=== PATIENT | female | born 1995 | race Caucasian/White ===

== ENCOUNTER 2020-11-26 14:30 | Outpatient (REF) | payer OTHER, SELFPAY | END 2020-11-26 14:31 | disposition home or self-care (01) | LOC: HO.LAB 14:30 | PROVIDERS: Visit Provider Internal Medicine | DX: Z20.822 Contact with and (suspected) exposure to COVID-19 (principal) | CPT/HCPCS: 36415; C9803; U0003; U0005 ==

== ENCOUNTER 2021-01-31 16:12 | Emergency (ER) | payer OTHER, SELFPAY ==
[2021-01-31 16:31] VITALS: BP 142/79; PULSE 88; RESP 22; TEMP 36.1; O2SAT 93; BMI 30.9
[2021-01-31 16:38] VITALS: O2SAT 90
[2021-01-31] MEDS: methylPREDNISolone Sod Succ 125 MG/2 ML VIAL IVPUSH (17:00)
[2021-01-31] MEDS: Magnesium Sulfate/H2O 2 GM/50 ML PIGGYBACK IV (17:00)
[2021-01-31] MEDS: Albuterol/Iprat 2.5/0.5MG 3 ML AMPUL.NEB INHALE (17:02)
[2021-01-31] MEDS: Albuterol Sulfate (0.083%) 2.5 MG/3 ML VIAL.NEB INHALE (17:02)
[2021-01-31] MEDS: Albuterol Sulfate (0.083%) 2.5 MG/3 ML VIAL.NEB 5 MG INHALE (17:02)
[2021-01-31 17:03] VITALS: PULSE 88; O2SAT 91
[2021-01-31 17:03] LABS: MANUAL DIFF FLAG NO
[2021-01-31 17:09] LABS: Basophils Percent Auto 0.6 % (0-2); Eosinophils Absolute Auto 0.4 X10*3/uL (0.0-0.4); Eosinophils Percent Auto 5.6 % (0-4); Hematocrit 38.9 % (37-47); Hemoglobin 12.5 g/dl (12.0-16.0); Imm Gran Abs Auto 0.02 X10*3/uL (0.00-0.03); Imm Gran Pct Auto 0.3 % (0.0-0.4); Lymphocytes Absolute Auto 1.9 X10*3/uL (1.2-4.9); Lymphocytes Percent Auto 26.8 % (20-40); Mean Corpuscular HGB Conc 32.1 g/dl (31.0-35.0); Mean Corpuscular Hemoglobin 27.9 pg (27.0-33.0); Mean Corpuscular Volume 86.8 fL (80-98); Mean Platelet Volume 10.1 fL (9.4-12.3); Monocytes Absolute Auto 0.5 X10*3/uL (0.1-1.2); Monocytes Percent Auto 7.1 % (2-11); Neutrophils Absolute Auto 4.3 X10*3/uL (2.0-8.3); Neutrophils Percent Auto 59.6 % (45-73); Platelet Count 314 X10*3/uL (160-400); Red Blood Count 4.48 X10*6/uL (4.20-5.50); Red Cell Distribution Width 13.5 % (11.0-16.0); White Blood Count 7.2 X10*3/uL (4.8-10.8)
--- NOTE | 2021-01-31 17:35 | ED.SOB ---
HPI - SOB/Dyspnea General Chief Complaint: Dyspnea Stated Complaint: Asthma Attack Time Seen by Provider: 01/31/21 16:51 Source: patient Mode of arrival: ambulatory Limitations: no limitations History of Present Illness HPI Narrative: Patient history of asthma came to ER for increased shortness of breath for last few hours wheezing on arrival saturating 93% at room air with history of similar attacks in the past where she gets worse. For now patient is staying in motel for last few days unlikely the chemical use in the hotel causing her more asthma attacks MD elicited complaint: shortness of breath Pertinent past history: asthma Onset (ago): hour(s) Related Data Previous Rx's Medication Instructions Recorded albuterol sulfate [ProAir HFA] 2 puff INHALATION Q4-6H PRN #8.5 g 01/31/21 prednisone 40 mg PO DAILY #10 tab 01/31/21 Allergies Allergy/AdvReac Type Severity Reaction Status Date / Time No Known Allergies Allergy Verified 01/31/21 16:31 [No Known Allergies*] Review of Systems Review of Systems: Constitutional : No Weight loss, No Fever, No Chills ENT/Mouth : No sore throat, No Rhinorrhea Eyes: No Eye Pain, No Swelling Cardiovascular : No Chest Pain, no palpitations Respiratory : No Cough, No Sputum, +shortness of breath Gastrointestinal : no Nausea, No Vomiting, No Diarrhea, No abdominal Pain, no black stools Genitourinary : No Dysuria, No Urinary Frequency Musculoskeletal : No joint pain, No Myalgias, No Joint Swelling Skin : No Skin Lesions, No rash Neuro : No Weakness, No Numbness, No Dizziness, No Headache Psych : No Anxiety/Panic, No Depression Heme/Lymph: No Bruising, No Lymphadenopathy Endocrine : No Polyuria, No Polydipsia All other systems reviewed and are negative [facility] Social History Social History Advance Directives: No Advance Directives Information Provided: No Patient : No Physical Exam Vital Signs: Vital Signs: Last Vital Signs Temp 98.7 F 01/31/21 19:17 Pulse 95 01/31/21 19:17 Resp 18 01/31/21 19:17 BP 131/76 01/31/21 19:17 Pulse Ox 98 01/31/21 19:17 Body Mass Index 30.9 Appearance: Alert. Oriented X3. In mild respiratory distress. Eyes: PERRLA, No Nystagmus ENT: Pharynx normal. Oral Mucosa moist Neck: Normal inspection. Neck supple. CVS: Normal heart rate and rhythm. Pulses normal. Respiratory: Mild respiratory distress. Equal air entry bilateral, bilateral diffuse wheezing and rhonchi no rales Abdomen: Soft and nontender. Bowel sounds are present, no mass palpable, no CVA tenderness Skin: Skin warm and dry. Normal skin color. Normal skin turgor. Extremities: No lower extremity edema. No calf tenderness Neuro: Oriented X 3. No motor deficit. No sensory deficit.No cerebellar signs , cranial nerves II-XII intact MDM - SOB/Dyspnea MDM Narrative Medical decision making narrative: Patient with asthma came with acute exacerbation with wheezing saturating 93% on room air received 1 continues treatment and now feeling much much better saturating 100% room air will discharge patient home on albuterol inhaler and prednisone tablets Lab Data Attestation: I reviewed the patient's lab results. Result diagrams: 01/31/21 16:59 01/31/21 16:59 Labs: Lab Results 01/31/21 01/31/21 Range/Units 16:59 16:59 WBC 7.2 (4.8-10.8) X10*3/uL RBC 4.48 (4.20-5.50) X10*6/uL Hgb 12.5 (12.0-16.0) g/dl Hct 38.9 (37-47) % MCV 86.8 (80-98) fL MCH 27.9 (27.0-33.0) pg MCHC 32.1 (31.0-35.0) g/dl RDW 13.5 (11.0-16.0) % Plt Count 314 (160-400) X10*3/uL MPV 10.1 (9.4-12.3) fL Immature Gran % (Auto) 0.3 (0.0-0.4) % Neut % (Auto) 59.6 (45-73) % Lymph % (Auto) 26.8 (20-40) % [place] % (Auto) 7.1 (2-11) % Eos % (Auto) 5.6 H (0-4) % Baso % (Auto) 0.6 (0-2) % Lymph # (Auto) 1.9 (1.2-4.9) X10*3/uL [place] # (Auto) 0.5 (0.1-1.2) X10*3/uL Eos # (Auto) 0.4 (0.0-0.4) X10*3/uL Baso # (Auto) 0.0 (0.0-0.2) X10*3/uL Abs Immat Gran (auto) 0.02 (0.00-0.03) X10*3/uL Absolute Neuts (auto) 4.3 (2.0-8.3) X10*3/uL Absolute Nucleated RBC 0.000 (0.0-0.012) X10*3/uL Nucleated RBC % (auto) 0.0 (0.0-0.2) /100WBC Sodium 141 (135-145) mmol/L Potassium 4.3 (3.3-5.1) mmol/L Chloride 104 (96-108) mmol/L Carbon Dioxide 30 H (22-29) mmol/L Anion Gap 11 L (12-20) BUN 10 (9-16) mg/dL Creatinine 0.90 (0.5-1.4) mg/dL Estim Creat Clear Calc 99.6 Estimated GFR > 60 Random Glucose 66 (60-115) mg/dL Calcium 9.5 (8.4-10.2) mg/dL Discharge Plan Discharge Clinical Impression: Asthma with exacerbation Qualifiers: Asthma severity: moderate Asthma persistence: persistent Qualified Code(s): J45.41 - Moderate persistent asthma with (acute) exacerbation Patient Disposition: Home, Self-Care Instructions: Asthma (ED) Additional Instructions: Take albuterol inhaler 2 puffs every 4-6 hours as needed. Prednisone as prescribed. Follow up with PCP Prescriptions: New albuterol sulfate [ProAir HFA] 90 mcg/actuation HFA aerosol inhaler 2 puff inhalation Q4-6H PRN (Reason: shortness of breath or wheezing) Qty: 8.5 RF: 0 prednisone 20 mg tablet 40 mg PO DAILY Qty: 10 RF: 0
[2021-01-31 17:38] LABS: Anion Gap 11 (12-20); Blood Urea Nitrogen 10 mg/dL (9-16); Calcium 9.5 mg/dL (8.4-10.2); Carbon Dioxide 30 mmol/L (22-29); Chloride 104 mmol/L (96-108); Creatinine Clr Calc Pharmacy 99.6; Estimated Glomerular Filt Rate > 60; Glucose Random 66 mg/dL (60-115); Potassium 4.3 mmol/L (3.3-5.1); Sodium 141 mmol/L (135-145)
[2021-01-31 18:00] VITALS: PULSE 99; RESP 18; TEMP 37; O2SAT 100
[2021-01-31 19:17] VITALS: BP 131/76; PULSE 95; RESP 18; TEMP 37.1; O2SAT 98
[2021-01-31] MEDS: Albuterol Sulfate 90 MCG 8 GM INHALER 2 PUFF INHALE (19:30)
== END 2021-01-31 19:29 | disposition home or self-care (01) ==
PROVIDERS: Emergency Provider Internal Medicine
DX: J45.41 Moderate persistent asthma with (acute) exacerbation (principal)
CPT/HCPCS: 36415; 80048; 85025; 94640; 96365; 96375; 99284; 99285; J2930; J3475

== ENCOUNTER 2021-03-29 11:14 | Emergency (ER) | payer OTHER, SELFPAY | END 2021-03-29 12:35 | disposition left against medical advice (07) | PROVIDERS: Emergency Provider Emergency Medicine | DX: R68.89 Other general symptoms and signs (principal) ==

== ENCOUNTER 2021-12-24 13:24 | Emergency (ER) | payer OTHER, SELFPAY ==
[2021-12-24 13:34] VITALS: BP 156/61; PULSE 60; RESP 18; TEMP 36.6; BMI 27.4
--- NOTE | 2021-12-24 14:04 | ED.GENADULT ---
HPI - General Adult General Chief complaint: ETOH/Substance Use Stated complaint: Vomiting/Dizzy/withdrawals Time Seen by Provider: 12/24/21 13:55 Source: patient Mode of arrival: ambulatory Limitations: no limitations History of Present Illness HPI narrative: This is 26 years old the female who comes in in the emergency room with a chief complaint of nausea vomiting, she has history of opiate abuse she has been coming off of opiates last time use of case was about 8 days ago Onset (ago): day(s) (1) Radiation: non-radiation Severity: moderate Pain Consistency: constant Relieving factors: none Exacerbating factors: none Related Data Previous Rx's Medication Instructions Recorded albuterol sulfate 90 mcg/actuation 2 puff INHALATION Q4-6H PRN #8.5 g 01/31/21 aerosol inhaler (ProAir HFA) prednisone 20 mg tablet 40 mg PO DAILY #10 tab 01/31/21 ondansetron 4 mg disintegrating 4 mg PO Q8H 4 Days #12 tab 12/24/21 tablet Allergies Allergy/AdvReac Type Severity Reaction Status Date / Time No Known Allergies Allergy Verified 01/31/21 16:31 [No Known Allergies*] Review of Systems Constitutional: Constitutional: Reports no additional constitutional complaints Eyes: Eyes: Reports no additional eye complaints Cardiovascular: Cardiovascular: Denies chest pain and Denies chest pain at rest Gastrointestinal: Gastrointestinal: Reports no additional gastrointestinal complaints Neurologic: Reports system reviewed and no additional complaints, except as documented PMFSH Social History Social History Alcohol intake: never Patient Tobacco Use Status: Never used Tobacco Smoked in Last 30 Days: No Use of substances other than those prescribed or required for medical reasons: Yes Substance Use Type: Heroin Substance Use Frequency: Chronic Longstanding Last Used Substance: Weeks (ago) Any prior treatment program specific to substance use: No Advance Directives: No Advance Directives Information Provided: No Physical Exam ED Vital Signs: Vital Signs - 24 hr 12/24/21 13:34 12/24/21 14:10 Temperature 97.8 F 97.8 F Pulse Rate 60 53 Respiratory Rate 18 12 Blood Pressure 156/61 H 157/92 H Pulse Oximetry 98 BMI result Body Mass Index 27.4 Const General: cooperative Nutritional Appearance: average body habitus and well nourished HENMT Head: Yes normal to inspection Ears: hearing grossly normal bilaterally General nose exam: Normal external nose present Face and sinus: Yes normal facial exam Mouth: Normal oral and palatal mucosa present Throat: Yes posterior oropharynx normal Neck Neck: Yes normal visual inspection, Yes full ROM and Yes no lymphadenopathy Thyroid: Thyroid normal Chest Chest palpation & inspection: normal inspection of the chest Resp Effort & Inspection: normal respiratory effort and able to speak in complete sentences Auscultation: clear to auscultation bilaterally Cardio Palpation: normal PMI Rate: regular rate Rhythm: regular rhythm GI Inspection: Yes normal to inspection Palpation (GI): Soft to palpation Auscultation: normal bowel sounds Skin General skin exam: no rashes or lesions noted, elasticity normal and turgor normal Lesions: no lesions Rashes: no rashes Wounds: no wounds Hair: normal Course Reevaluation(s) Reevaluation #1: Pt is feeling better now,she ws seen by Care team Roel ,she is not interested in Suboxone nor Methadone Time: 15:19 Procedures EJ/Peripheral Line Arm L: Time Out Performed: Yes Skin Cleansed in Sterile Fashion: Yes Size (gauge): 20 IV Secured and Dressing Applied: Yes Patient Tolerated Procedure: well Additional Comments: Under US Linear probe cannulated left basilic vein with 20 mohinder 1 3/4 inch JasonDBcan Medical Decision Making Lab Data Result diagrams: 12/24/21 14:40 12/24/21 15:03 Labs: Lab Results 12/24/21 12/24/21 Range/Units 14:40 15:03 WBC 12.2 H (4.8-10.8) X10*3/uL RBC 5.58 H (4.20-5.50) X10*6/uL Hgb 15.7 (12.0-16.0) g/dl Hct 47.4 H (37.0-47.0) % MCV 84.9 (80.0-98.0) fL MCH 28.1 (27.0-33.0) pg MCHC 33.1 (31.0-35.0) g/dl RDW 14.0 (11.0-16.0) % Plt Count 300 (160-400) X10*3/uL MPV Not Reportable Immature Gran % (Auto) 0.2 (0.0-0.4) % Neut % (Auto) 78.8 H (45-73) % Lymph % (Auto) 18.1 L (20-40) % [place] % (Auto) 2.4 (2-11) % Eos % (Auto) 0.2 (0-4) % Baso % (Auto) 0.3 (0-2) % Lymph # (Auto) 2.2 (1.2-4.9) X10*3/uL [place] # (Auto) 0.3 (0.1-1.2) X10*3/uL Eos # (Auto) 0.0 (0.0-0.4) X10*3/uL Baso # (Auto) 0.0 (0.0-0.2) X10*3/uL Abs Immat Gran (auto) 0.03 (0.00-0.03) X10*3/uL Absolute Neuts (auto) 9.6 H (2.0-8.3) x10*3/uL Absolute Nucleated RBC 0.000 (0.0-0.012) X10*3/uL Nucleated RBC % (auto) 0.0 (0.0-0.2) /100WBC Smear Tech's Comments VERIFIED Sodium 140 (135-145) mmol/L Potassium 4.3 (3.3-5.1) mmol/L Chloride 105 (96-108) mmol/L Carbon Dioxide 24 (22-29) mmol/L Anion Gap 15 (12-20) BUN 11 (9-16) mg/dL Creatinine 0.94 (0.5-1.4) mg/dL Estim Creat Clear Calc 89.3 Estimated GFR > 60 Random Glucose 96 (60-115) mg/dL Calcium 10.0 (8.4-10.2) mg/dL Total Bilirubin 0.7 (0.0-1.0) mg/dL AST 13 (5-31) U/L ALT 13 (0-31) U/L Alkaline Phosphatase 61 (39-117) U/L Total Protein 8.3 H (6.5-8.0) g/dL Albumin 4.6 (3.5-5.0) g/dL Beta HCG, Quant < 2 mIU/mL ECG Data Pacemaker model: NSR 43 no ischemic changes Discharge Plan Discharge Clinical Impression: Vomiting Patient Disposition: Home, Self-Care Instructions: Acute Nausea and Vomiting (ED) Prescriptions: New ondansetron 4 mg tablet,disintegrating 4 mg PO Q8H 4 Days Qty: 12 0RF No Action albuterol sulfate [ProAir HFA] 90 mcg/actuation HFA aerosol inhaler 2 puff inhalation Q4-6H PRN (Reason: shortness of breath or wheezing) Qty: 8.5 0RF prednisone 20 mg tablet 40 mg PO DAILY Qty: 10 0RF Referrals: Physician,None [Primary Care Provider] - 3 days
[2021-12-24 14:10] VITALS: BP 157/92; PULSE 53; RESP 12; TEMP 36.6; O2SAT 98
[2021-12-24 14:17] VITALS: PULSE 57
--- NOTE | 2021-12-24 14:20 | ECG_ITS ---
Test Reason : ARRYTHMIA Blood Pressure : / mmHG Vent. Rate : 043 BPM Atrial Rate : 043 BPM P-R Int : 126 ms QRS Dur : 092 ms QT Int : 510 ms P-R-T Axes : 068 071 042 degrees QTc Int : 430 ms Marked sinus bradycardia Abnormal ECG No previous ECGs available Referred By: Jamey Hansen Electronically Signed By:Ned Johnson
--- NOTE | 2021-12-24 14:23 | PC.NURSE ---
pt a&ox3, sinus elvin (30s-50s), arrhythmia noted on security monitor, pt has hx of chronic heroin usage, has been off heroin for about a week, increased dizziness when standing today, slight tremor noted, pt reporting chills/headache, COWS = 11. pt wants to speak to stone circular sawyer about other options for decreasing drug use. labs drawn, EKG completed by tech, unable to place IV.
--- NOTE | 2021-12-24 14:43 | PC.NURSE ---
CIWA not done, pt denies alcoho, usage.
[2021-12-24 14:48] LABS: Basophils Percent Auto 0.3 % (0-2); Mean Corpuscular Volume 84.9 fL (80.0-98.0); Monocytes Percent Auto 2.4 % (2-11); Neutrophils Percent Auto 78.8 % (45-73); PLT CLUMP 1; SCAN SMEAR FLAG 1
[2021-12-24 14:50] LABS: Eosinophils Percent Auto 0.2 % (0-4); Hematocrit 47.4 % (37.0-47.0); Hemoglobin 15.7 g/dl (12.0-16.0); Imm Gran Abs Auto 0.03 X10*3/uL (0.00-0.03); Imm Gran Pct Auto 0.2 % (0.0-0.4); Lymphocytes Absolute Auto 2.2 X10*3/uL (1.2-4.9); Lymphocytes Percent Auto 18.1 % (20-40); MANUAL DIFF FLAG SCAN; Mean Corpuscular HGB Conc 33.1 g/dl (31.0-35.0); Mean Corpuscular Hemoglobin 28.1 pg (27.0-33.0); Monocytes Absolute Auto 0.3 X10*3/uL (0.1-1.2); Neutrophils Absolute Auto 9.6 x10*3/uL (2.0-8.3); Red Blood Count 5.58 X10*6/uL (4.20-5.50)
[2021-12-24] MEDS: ondansetron HCL 4 MG/2 ML VIAL IVPUSH (15:02)
[2021-12-24] MEDS: 0.9 % Sodium Chloride 1,000 ML 999 ML IVCONT ×2 (15:03→16:07)
--- NOTE | 2021-12-24 15:03 | PC.NURSE ---
20G IV placed via u/s by provider, labs redrawn, pt tolerated well.
[2021-12-24 15:06] LABS: Platelet Count 300 X10*3/uL (160-400); White Blood Count 12.2 X10*3/uL (4.8-10.8)
[2021-12-24 15:07] LABS: SLIDE REVIEW VERIFIED
[2021-12-24 15:35] LABS: Alanine Aminotransferase 13 U/L (0-31); Albumin Level 4.6 g/dL (3.5-5.0); Alkaline Phosphatase 61 U/L (39-117); Anion Gap 15 (12-20); Aspartate Amino Transferase 13 U/L (5-31); Bilirubin Total 0.7 mg/dL (0.0-1.0); Blood Urea Nitrogen 11 mg/dL (9-16); Carbon Dioxide 24 mmol/L (22-29); Chloride 105 mmol/L (96-108); Creatinine Clr Calc Pharmacy 89.3; Estimated Glomerular Filt Rate > 60; Glucose Random 96 mg/dL (60-115); Potassium 4.3 mmol/L (3.3-5.1); Sodium 140 mmol/L (135-145); Total Protein 8.3 g/dL (6.5-8.0)
[2021-12-24 15:44] LABS: HCG Quantitative < 2 mIU/mL
[2021-12-24 16:00] VITALS: BP 141/89; PULSE 66; RESP 21; O2SAT 99
--- NOTE | 2021-12-24 16:10 | PC.NURSE ---
pt a&ox3, vss, reporting some dizziness after walking to the restroom, pt given some reji vicky and a sandwich, will continue to monitor.
--- NOTE | 2021-12-24 16:33 | MHC.RECOVSUP ---
Recovery Support note: Patient is a 26 year old [place]ian speaking female who presented to [facility] [place] due to opiate withdrawal. Patient reports last using 8 days ago. Patient states she was using two bundles a day and cut down to 3-4 a couple of days before stopping. Patient report she has been using since she was 19 with significant periods of sobriety. Patient reports the last year she has been using regularly and that she is ready to stop and maintain sobriety. Discussed medications for opiate use disorder with patient. Patient has received Vivitrol before and she is interested in getting that again. Education regarding naltrexone/ Vivitrol provided. Resources provided regarding clinics in the area that offer this medication. Patient received Zofran and reported to this telegraphic typewriter operator she no longer felt sick after the medication. Discussed recovery coaching with patient. She is interested in this line of support and a referral has been made. Patient has contact information for this telegraphic typewriter operator in the event that she has additional questions after discharge. Discussed case with ED physician.
== END 2021-12-24 17:38 | disposition home or self-care (01) ==
PROVIDERS: Emergency Provider Emergency Medicine
DX: R11.2 Nausea with vomiting, unspecified (principal); F11.10 Opioid abuse, uncomplicated; Z95.0 Presence of cardiac pacemaker
CPT/HCPCS: 36415; 36573; 80053; 84702; 85025; 93005; 96361; 96374; 99285; J2405

== ENCOUNTER 2023-01-26 09:00 | Emergency (ER) | payer MEDICAID, SELFPAY ==
[2023-01-26 09:12] VITALS: BP 147/88; PULSE 51; RESP 17; TEMP 35.6; O2SAT 95; BMI 24.0
--- NOTE | 2023-01-26 09:58 | ED.GENADULT ---
HPI - General Adult General Chief complaint: Skin/Abscess/Foreign Body Stated complaint: Cyst? on head Time Seen by Provider: 01/26/23 09:54 Source: patient Limitations: no limitations History of Present Illness HPI narrative: 27-year-old female presents to the ER with complaints of an abscess versus cyst and the upper left facial area. Patient states onset over the past few days usually comes to Head and drains but this 1 has not. Positive slight pain no drainage at this time positive redness around the area. No fever chills or shortness of breath or other complaints at this time. Symptoms mild to moderate. Related Data Previous Rx's Medication Instructions Recorded albuterol sulfate 90 mcg/actuation 2 puff inhalation Q4-6H PRN 01/31/21 aerosol inhaler (ProAir HFA) shortness of breath or wheezing #8.5 grams prednisone 20 mg tablet 40 mg PO DAILY #10 tabs 01/31/21 ondansetron 4 mg disintegrating 4 mg PO Q8H 4 days #12 tabs 12/24/21 tablet doxycycline hyclate 100 mg tablet 100 mg PO BID 10 days #20 tabs 01/26/23 mupirocin 2 % topical ointment 1 appl topical TID 10 days #15 01/26/23 grams Allergies Allergy/AdvReac Type Severity Reaction Status Date / Time No Known Allergies Allergy Verified 01/31/21 16:31 [No Known Allergies*] Review of Systems Review of Systems: General: No fever no chills ENT: No sore throat Cardiovascular: No chest pain Respiratory: No shortness of breath Muscle skeletal: No malaise, no back pain GI: No abdominal pain, no nausea vomiting Derm: Positive lesion left facial area PMFSH Past Medical History Attestation statement: The following information was validated with the patient. Social History Social History Alcohol intake: never Patient Tobacco Use Status: Never used Tobacco Substance Use Type: Heroin Advance Directives: No Advance Directives Information Provided: No Physical Exam ED Vital Signs: Vital Signs - 24 hr 01/26/23 09:12 Temperature 96.0 F L Pulse Rate 51 Respiratory Rate 17 Blood Pressure 147/88 H Pulse Oximetry 95 Oxygen Delivery Method Room Air BMI result Body Mass Index 24.0 vital signs have been reviewed as normal and appeared to be correct. Blood pressure normal. Heart rate normal. Respiration rate normal. Temperature normal. Oxygen saturation normal. Appearance: Alert. Oriented X3. No acute distress. Head: Normal external exam. Normocephalic. Atraumatic. Eyes: PERRLA. EOMI. Conjunctiva and sclera normal. ENT: Pharynx normal. Uvula midline. Moist mucous membranes. Neck: Soft full range of motion Respiratory: No accessory muscle use noted Abdomen: Soft nontender no rebound or guarding positive bowel sounds Back: Full range of motion noted. Skin: Skin warm and dry lesion noted to the left parietal area small non drainable abscess versus acne vulgaris Extremities: No lower extremity edema. Extremities exhibit normal range of motion. Extremities nontender. Neuro: Oriented X 3. No motor deficit. No sensory deficit. Course Course Course Narrative: Facial acne Facial abscess Facial cyst Facial cellulitis less likely 27-year-old female presents with a facial lesion to the left side of her face just lateral to the left orbit. Non fluctuant area some induration is noted. Consistent with acne vulgaris versus early onset abscess. Will place patient on doxycycline topical Bactroban at this time. Discharge Plan Discharge Clinical Impression: Abscess of skin or subcutaneous tissue Patient Disposition: Home, Self-Care Instructions: Abscess (ED) Additional Instructions: Warm compresses 2 to 3 times a day Medications as directed Return if symptoms worsen Follow-up with PCP Prescriptions: New doxycycline hyclate 100 mg tablet 100 mg PO BID 10 Days Qty: 20 0RF mupirocin 2 % ointment 1 appl topical TID 10 Days Qty: 15 0RF No Action albuterol sulfate [ProAir HFA] 90 mcg/actuation HFA aerosol inhaler 2 puff inhalation Q4-6H PRN (Reason: shortness of breath or wheezing) Qty: 8.5 0RF prednisone 20 mg tablet 40 mg PO DAILY Qty: 10 0RF ondansetron 4 mg tablet,disintegrating 4 mg PO Q8H 4 Days Qty: 12 0RF Stand Alone Forms: Work/School Release
== END 2023-01-26 10:23 | disposition home or self-care (01) ==
PROVIDERS: Emergency Provider Emergency Medicine
DX: L02.01 Cutaneous abscess of face (principal)
CPT/HCPCS: 99282; 99283

== ENCOUNTER 2023-06-04 07:22 | Emergency (ER) | payer MEDICAID, SELFPAY ==
[2023-06-04 07:27] VITALS: BP 126/75; PULSE 73; RESP 16; TEMP 36.1; O2SAT 98; BMI 29.0
--- NOTE | 2023-06-04 07:48 | ED_ITS ---
HPI - General Adult General Chief complaint: Animal Bite Stated complaint: spider bite Time Seen by Provider: 06/04/23 07:39 Source: patient Mode of arrival: ambulatory Limitations: no limitations History of Present Illness HPI narrative: 27-year-old female presented for evaluation of left ear infection after spider bite. Related Data Previous Rx's Medication Instructions Recorded albuterol sulfate 90 mcg/actuation 2 puff inhalation Q4-6H PRN 01/31/21 aerosol inhaler (ProAir HFA) shortness of breath or wheezing #8.5 grams prednisone 20 mg tablet 40 mg PO DAILY #10 tabs 01/31/21 ondansetron 4 mg disintegrating 4 mg PO Q8H 4 days #12 tabs 12/24/21 tablet doxycycline hyclate 100 mg tablet 100 mg PO BID 10 days #20 tabs 01/26/23 mupirocin 2 % topical ointment 1 appl topical TID 10 days #15 01/26/23 grams mupirocin 2 % topical ointment 1 appl topical TID #22 grams 06/04/23 Allergies Allergy/AdvReac Type Severity Reaction Status Date / Time No Known Allergies Allergy Verified 01/31/21 16:31 [No Known Allergies*] Review of Systems Review of Systems: All other systems are reviewed and are negative Constitutional: Reports as per HPI and Reports no additional constitutional complaints Eyes: Reports as per HPI and Reports no additional eye complaints Reports system reviewed and no additional complaints, except as documented Cardiovascular: Reports as per HPI and Reports no additional cardiovascular complaints Respiratory: Reports as per HPI and Reports no additional respiratory complaints Gastrointestinal: Reports as per HPI and Reports no additional gastrointestinal complaints Genitourinary: Reports no additional female genitourinary complaints Musculoskeletal: Reports no additional musculoskeletal complaints Skin/Breast: Reports system reviewed and no additional complaints, except as docu Psychiatric: Reports no additional psychiatric complaints Endocrine: Reports no additional endocrine complaints Hematologic/Lymphatic: Reports no additional hematologic/lymphatic complaints Allergic/Immunologic: Reports no additional allergic/immunologic complaints Reports system reviewed and no additional complaints, except as documented and Reports Abnormal speech present [facility] Social History Social History Alcohol intake: never Patient Tobacco Use Status: Never used Tobacco Substance Use Type: Heroin Advance Directives: No Advance Directives Information Provided: No Physical Exam ED Vital Signs: Vital Signs - 24 hr 06/04/23 07:27 Temperature 97 F Pulse Rate 73 Respiratory Rate 16 Blood Pressure 126/75 Pulse Oximetry 98 Oxygen Delivery Method Room Air BMI result Body Mass Index 29.0 vital signs have been reviewed as appeared to be correct. Blood pressure normal. Heart rate normal. Respiration rate normal. Temperature normal. Oxygen saturation normal. Appearance: Alert. Oriented X3. No acute distress. Head: Normal external exam. Normocephalic. Atraumatic. No Lawson signs noted. No raccoon eyes noted Eyes: PERRLA. EOMI. Conjunctiva and sclera normal. Eyelids normal. ENT: TM's Normal. Pharynx normal. left ear with redness, tenderness with small amount of serous discharge from piercing. no fluctuation, no discrete abscess. Neck: Normal inspection. Neck supple. FROM. No adenopathy. Thyroid Normal. No meningeal signs. No neck mass noted. CVS: Normal heart rate and rhythm. Heart sound normal. No murmurs noted. Pulses normal throughout. Respiratory: No respiratory distress. Painless inspiration. Breath sounds normal. No wheezes/rales/rhonchi noted. Chest nontender. No accessory muscle usage noted or decreased air movement noted. Abdomen: Soft and nontender. Bowel sounds normal in all 4 quadrants. No distention noted. No organomegaly noted. No visible injury noted. Back: No CVA tenderness. Full range of motion noted. Skin: Skin warm and dry. Normal skin color. Normal skin turgor. No rashes/lesions/lacerations noted. Extremities: No lower extremity edema. Extremities exhibit normal range of motion. Extremities nontender. Neuro: Oriented X 3. Cranial nerve exam: II-XII are grossly intact No motor deficit. No sensory deficit. Reflexes normal. Course Course Course Narrative: Left ear cellulitis after spider bite, no abscess, will start the patient on mupirocin ointment. Patient was instructed not to wear accessory on the left ear. Medical Decision Making Differential Diagnosis Differential Diagnoses: The differential diagnosis associated with the presentation includes ( ear lobule cellulitis , abscess.) Discharge Plan Discharge Clinical Impression: Cellulitis of earlobe Patient Disposition: Home, Self-Care Instructions: Pierced Earlobe Infection (ED) Additional Instructions: seek immediate medical attention if worsening of the redness, fever, chills or discharge from ear lobe. Prescriptions: New mupirocin 2 % ointment 1 appl topical TID Qty: 22 0RF No Action albuterol sulfate [ProAir HFA] 90 mcg/actuation HFA aerosol inhaler 2 puff inhalation Q4-6H PRN (Reason: shortness of breath or wheezing) Qty: 8.5 0RF prednisone 20 mg tablet 40 mg PO DAILY Qty: 10 0RF ondansetron 4 mg tablet,disintegrating 4 mg PO Q8H 4 Days Qty: 12 0RF doxycycline hyclate 100 mg tablet 100 mg PO BID 10 Days Qty: 20 0RF mupirocin 2 % ointment 1 appl topical TID 10 Days Qty: 15 0RF
--- NOTE | 2023-06-04 08:12 | PC.NURSE ---
pt reports possible bug bite on r ear. she reports 9/10 pain to area. denies fever.
== END 2023-06-04 08:16 | disposition home or self-care (01) ==
PROVIDERS: Emergency Provider Emergency Medicine
DX: T63.301A Toxic effect of unspecified spider venom, accidental (unintentional), initial encounter (principal); H60.12 Cellulitis of left external ear; Y92.9 Unspecified place or not applicable; Z79.899 Other long term (current) drug therapy
CPT/HCPCS: 99282; 99283

== ENCOUNTER 2023-10-18 08:41 | Inpatient (IN) | payer MEDICAID, SELFPAY ==
--- NOTE | ~2023-10-18 | US_ITS ---
EXAMINATION: US ABDOMEN LIMITED CLINICAL INFORMATION: Right upper quadrant pain. COMPARISON: None available. TECHNIQUE: Real-time imaging of the right upper quadrant abdominal viscera. FINDINGS: PANCREAS: Visualized portions of pancreas are normal in appearance. LIVER: Normal. The liver is normal in size. The liver contour is normal. Parenchymal echogenicity is normal. No focal hepatic lesion. There is no intrahepatic biliary duct dilatation seen. GALLBLADDER: The gallbladder is mildly distended. Gallstones are noted. There is no gallbladder wall thickening appreciated. Small amount of pericholecystic fluid. COMMON BILE DUCT: Normal in caliber measuring 0.2 cm in diameter. RIGHT KIDNEY: Normal. No hydronephrosis. No renal calculi or focal parenchymal lesions. The kidney measures 9.7 cm in maximum dimension. FREE FLUID: None. US/US abdomen limited IMPRESSION: Mildly distended gallbladder demonstrating gallstones and a small amount of pericholecystic fluid. Acute cholecystitis is within the differential. Clinical correlation is recommended. HIDA imaging may be warranted.
--- NOTE | ~2023-10-18 | NM_ITS ---
EXAMINATION: BILIARY TRACT IMAGING STUDY CLINICAL INFORMATION: Right upper quadrant abdominal pain and gallstones seen on ultrasound the suspicion of acute cholecystitis.. COMPARISON: No previous biliary scan is available for comparison. Abdominal ultrasound and CT scan of the abdomen and pelvis, both dated 10/18/2023 are available for comparison.. TECHNIQUE: Serial gamma scintillation camera images were obtained over the abdomen for a total observation period of 45 minutes following the intravenous administration of 5 mCi Tc-99m Mebrofenin. Additional images could not be obtained because of the patient's inability to cooperate with additional imaging. FINDINGS: There is good concentration of activity in the liver by 5 minutes post injection. Biliary activity is visualized by 10 minutes. Small bowel is well visualized by 15 minutes. There is reflux of biliary activity into the stomach which persists throughout the duration of the study. The gallbladder is not visualized at any time during the study. At the end of the study, terminated prematurely because of the patient's inability to cooperate diffuse small bowel activity is visualized.. NM/NM hepatobiliary wo pharm IMPRESSION: Nonvisualization of the gallbladder is strongly suspicious for acute cholecystitis, but images could not be obtained for the usual full duration of the study because of the patient's inability to cooperate. The common bile duct is patent. Liver function appears normal.
--- NOTE | ~2023-10-18 | CT_ITS ---
EXAMINATION: CT ABDOMEN AND PELVIS WITH CONTRAST CLINICAL INFORMATION: 28-year-old female with right lower quadrant abdominal pain and abnormal right upper quadrant ultrasound. COMPARISON: Ultrasound from the same day earlier TECHNIQUE: Multidetector volumetric images were obtained from the superior aspect of the liver through the pubic symphysis following administration 85 mL of Omnipaque 350 intravenous contrast. Sagittal and coronal reformatted images were obtained on the technologist's workstation. Oral contrast: No This CT examination was performed using dose optimization techniques as appropriate, variously including the following: *Automated exposure control *Adjustment of mA and/or kV according to patient size (this includes techniques or standardized protocols for targeted exams where dose is matched to indication/reason for exam; i.e. extremities or head) *Use of iterative reconstruction technique DLP: 390 mGy-cm FINDINGS: LUNG BASES: The visualized lung bases are unremarkable. LIVER, GALLBLADDER, AND BILIARY TREE: Liver is liver is enlarged with periportal edema. Gallbladder is over distended with high attenuation sludge and stone. There is pericholecystic fluid collection and possibly mild thickening: Gallbladder wall. The gallbladder is over distended with the lumen measured 12 x 4.5 x 4.6 cm, suggestive for hydrops. CBD is difficult to visualize not from pericholecystic fluid. PANCREAS: Unremarkable. SPLEEN: Measures 12.3 cm, mildly enlarged. ADRENAL GLANDS: Unremarkable. KIDNEYS AND URETERS: The kidneys are normal in size, shape, and attenuation. No hydronephrosis, hydroureter, or calculi seen. No perinephric stranding. BLADDER: Unremarkable. GASTROINTESTINAL TRACT: The small and large bowel are unremarkable. The appendix is unremarkable. There is large amount of retained feces consistent with constipation. ABDOMINAL WALL: No significant hernia is appreciated. LYMPH NODES: Normal. VASCULAR: Unremarkable. PELVIC VISCERA: There are increased vascular flow in the pelvis suggestive for congestive pelvic syndrome, correlate clinically. OSSEOUS STRUCTURES: Unremarkable. CT/CT abdomen pelvis w IV con IMPRESSION: 1. Hepatosplenomegaly with periportal edema. 2. Gallbladder hydrops with cholelithiasis and pericholecystic fluid, suggestive for cholecystitis. 3. Constipation. 4. Pelvic congestion syndrome. Fleischner guidelines were followed.
[2023-10-18 08:47] VITALS: BP 177/90; PULSE 50; RESP 19; TEMP 36.6; O2SAT 98; BMI 20.6
--- NOTE | 2023-10-18 09:05 | ED.GENADULT ---
HPI - General Adult General Chief complaint: Abdominal Pain Stated complaint: Severe abd pain Time Seen by Provider: 10/18/23 08:51 Source: patient Mode of arrival: ambulatory Limitations: no limitations History of Present Illness HPI narrative: Patient is a 28 yr old female currently on Nexplanon with a history of heroin use presenting with right sided abdominal pain, nausea, and vomiting that started 2 hours ago. Patient reports she was not doing anything when the pain started. She reports that she last ate banana bread, mashed potatoes and beef. Patient denies any previous abdominal surgery. Denies fever, chills, recent sick contacts, diarrhea, constipation, SOB or chest pain. Related Data Previous Rx's Medication Instructions Recorded albuterol sulfate 90 mcg/actuation 2 puff inhalation Q4-6H PRN 01/31/21 aerosol inhaler (ProAir HFA) shortness of breath or wheezing #8.5 grams prednisone 20 mg tablet 40 mg (2 x 20 mg) PO DAILY #10 tabs 01/31/21 ondansetron 4 mg disintegrating 4 mg PO Q8H 4 days #12 tabs 12/24/21 tablet doxycycline hyclate 100 mg tablet 100 mg PO BID 10 days #20 tabs 01/26/23 mupirocin 2 % topical ointment 1 appl topical TID 10 days #15 01/26/23 grams mupirocin 2 % topical ointment 1 appl topical TID #22 grams 06/04/23 Allergies Allergy/AdvReac Type Severity Reaction Status Date / Time No Known Allergies Allergy Verified 10/18/23 08:47 [No Known Allergies*] Review of Systems Review of Systems: Constitutional : No Weight loss, No Fever, No Chills, No Fatigue, No Malaise ENT/Mouth : No sore throat, No Rhinorrhea Eyes: No Eye Pain, No Swelling, No Redness Cardiovascular : No Chest Pain, No SOB, No Dyspnea on Exertion, No Orthopnea, No Edema, No Palpitations Respiratory : No Cough, No Sputum, No Wheezing Gastrointestinal : + Nausea, Vomiting, abdominal pain. No diarrhea, constipation, No Hematochezia, No Melena Genitourinary : No Dysuria, No Urinary Frequency, No Hematuria, Musculoskeletal : No joint pain, No Myalgias, No Joint Swelling Skin : No Skin Lesions, No rash Neuro : No Weakness, No Numbness, No Dizziness, No Headache Psych : No Anxiety/Panic, No Depression Heme/Lymph: No Bruising, No Bleeding,No Lymphadenopathy Endocrine : No Polyuria, No Polydipsia All other systems reviewed and are negative Yes all other systems are reviewed and are negative [facility] Past Medical History Attestation statement: The following information was validated with the patient. Source: old records reviewed and nursing notes reviewed Onset Date is defined in the Problem List Problems that require an onset date and time if occurred within 24 hrs of arrival to the ED Aortic Dissection and Rupture; Neurologic impairment; Cardiopulmonary Arrest; Endotracheal Intubation; Insertion or Replacement of Mechanical Circulatory Assist Device Social History Social History Alcohol intake: never Patient Tobacco Use Status: Never used Tobacco Substance Use Type: Heroin Advance Directives: No Physical Exam ED Vital Signs: Vital Signs - 24 hr 10/18/23 08:47 10/18/23 10:40 Temperature 98 F Pulse Rate 50 41 L Respiratory Rate 19 14 Blood Pressure 177/90 H 157/92 H Pulse Oximetry 98 100 Oxygen Delivery Method Room Air Room Air BMI result Body Mass Index 20.6 vss bradycardia 50 bpm and hypertension 177/90 Appearance: Alert.? Oriented X3.?Patient rolling on stretcher in severe pain.? Head: Normocephalic, atraumatic, no step-offs or deformities Eyes: Pupils equal, round and reactive to light.? CVS: Bradycardic. Normal heart rate and rhythm.? Pulses normal.? Respiratory: No respiratory distress.? Breath sounds normal.? Abdomen: Severe tenderness to palpation of the lower right quadrant. Positive [place]. Negative McBurneys. Bowel sounds throughout. Abdomen soft, nondistended. Skin: Skin warm and dry.? Normal skin color.? Normal skin turgor.? Extremities: No lower extremity edema.? No calf ttp. 5/5 strength to bilateral upper and lower extremities Back: No midline tenderness, no C-spine tenderness, full range of motion, no CVA tenderness bilaterally Neuro: Oriented X 3.? No motor deficit.? No sensory deficit. CN 2-12 intact Course Reevaluation(s) Reevaluation #1: CBC no acute findings requiring intervention. Chemistry no acute findings requiring intervention no electrolyte abnormalities. Beta hCG negative. Lipase normal. Alk-phos within normal limits. Both CT and ultrasound concerning for acute cholecystitis positive Edmonds's on exam, contacted surgery. Patient's pain is well controlled at time with Toradol and Zofran. Pending response by surgery Time: 11:26 Reevaluation #2: Surgery would like patient admitted to hospitalist team. Hospitalist team will admit patient at this time. Surgery ordered a HIDA scan. Time: 14:30 Medications Administered Discontinued Medications Generic Name Dose Route Start Last Admin Trade Name Freq PRN Reason Stop Dose Admin Ceftriaxone Sodium 1 gm/ 50 mls @ 100 mls/hr 10/18/23 12:11 10/18/23 12:55 Sodium Chloride IV 10/18/23 12:40 100 mls/hr ONCE ONE Administration Sodium Chloride 1,000 mls @ 999 mls/hr 10/18/23 12:30 10/18/23 12:50 Ns IV 10/18/23 13:30 999 mls/hr .Q1H1M SHARDA Administration Iohexol 85 ml 10/18/23 10:27 10/18/23 10:28 Iohexol 350 Mg/Ml 100 Ml Infus..Btl IV 10/18/23 10:28 85 ml ONCE ONE Administration Ketorolac Tromethamine 30 mg 10/18/23 09:08 10/18/23 09:32 Ketorolac Tromethamine 15 Mg/Ml Vial IVPUSH 10/18/23 09:09 30 mg ONCE ONE Administration Ondansetron HCl 4 mg 10/18/23 09:08 10/18/23 09:32 Ondansetron Hcl 4 Mg/2 Ml Vial IVPUSH 10/18/23 09:09 4 mg ONCE ONE Administration Medical Decision Making Medical Decision Making [facility] Narrative: Patient is a 28 yr old female with no significant past medical history presenting with right sided abdominal pain, nausea, and vomiting that started 2 hours ago. PE significant for severe right sided abdominal pain with gaurding. Positive [place], negative McBurneys. Most likely acute appendicitis vs acute cholecysitits. Unlikely acute abdomen, obstruction, gastritis, pancreatitis, renal calculus, , ovarian torsion , rupture ectopic pregnany Plan labs, imaging, EKG Differential Diagnosis Differential Diagnoses: The differential diagnosis associated with the presentation includes Most likely acute appendicitis vs acute cholecysitits. Unlikely acute abdomen, obstruction, gastritis, pancreatitis, renal calculus, , ovarian torsion , rupture ectopic pregnany Admission/Observation Consideration of admission/observation: Escalation of care including admission/observation considered Consult Healthcare Provider Management of the patient was discussed with: Lead Javascript Developer (Surgery ) Lab Data MDM Lab Attestation statement: I reviewed the patient's lab results. CBC within normal limits CMP within normal limits 10/18/23 09:27 10/18/23 09:27 Labs: Lab Results 10/18/23 Range/Units 09:27 WBC 10.2 (4.8-10.8) X10*3/uL RBC 4.57 (4.20-5.50) X10*6/uL Hgb 12.6 (12.0-16.0) g/dl Hct 39.0 (37.0-47.0) % MCV 85.3 (80.0-98.0) fL MCH 27.6 (27.0-33.0) pg MCHC 32.3 (31.0-35.0) g/dl RDW 14.2 (11.0-16.0) % Plt Count 266 (160-400) X10*3/uL MPV 9.9 (9.4-12.3) fL Immature Gran % (Auto) 0.2 (0.0-0.4) % Neut % (Auto) 66.0 (45-73) % Lymph % (Auto) 23.7 (20-40) % [place] % (Auto) 5.9 (2-11) % Eos % (Auto) 3.8 (0-4) % Baso % (Auto) 0.4 (0-2) % Lymph # (Auto) 2.4 (1.2-4.9) X10*3/uL [place] # (Auto) 0.6 (0.1-1.2) X10*3/uL Eos # (Auto) 0.4 (0.0-0.4) X10*3/uL Baso # (Auto) 0.0 (0.0-0.2) X10*3/uL Abs Immat Gran (auto) 0.02 (0.00-0.03) X10*3/uL Absolute Neuts (auto) 6.7 (2.0-8.3) x10*3/uL Absolute Nucleated RBC 0.000 (0.0-0.012) X10*3/uL Nucleated RBC % (auto) 0.0 (0.0-0.2) /100WBC PT 11.5 (11.1-13.3) SEC INR 0.9 (0.9-1.1) Sodium 140 (135-145) mmol/L Potassium 4.6 (3.3-5.1) mmol/L Chloride 109 H (96-108) mmol/L Carbon Dioxide 22 (22-29) mmol/L Anion Gap 14 (12-20) BUN 10 (9-16) mg/dL Creatinine 0.80 (0.5-1.4) mg/dL Estim Creat Clear Calc 90.7 Estimated GFR > 60 Random Glucose 106 (60-115) mg/dL Calcium 9.3 D (8.4-10.2) mg/dL Magnesium 2.1 (1.6-2.6) mg/dL Total Bilirubin 0.3 (0.0-1.0) mg/dL AST 30 (5-31) U/L ALT 19 (0-31) U/L Alkaline Phosphatase 56 (39-117) U/L Total Protein 8.1 H (6.5-8.0) g/dL Albumin 3.9 (3.5-5.0) g/dL Lipase 13 (8-78) U/L Beta HCG, Quant < 2 mIU/mL Ethyl Alcohol < 10 mg/dL Independent Interpretation I performed an independent interpretation of an: Ultrasound (US/US abdomen limited IMPRESSION: Mildly distended gallbladder demonstrating gallstones and a small amount of pericholecystic fluid. Acute cholecystitis is within the differential. Clinical correlation is recommended. HIDA imaging may be warranted.) and CT Scan ( CT/CT abdomen pelvis w IV con IMPRESSION: 1. Hepatosplenomegaly with periportal edema. 2. Gallbladder hydrops with cholelithiasis and pericholecystic fluid, suggestive for cholecystitis. 3. Constipation. 4. Pelvic congestion syndrome.) Radiology Impression Discussion of test interpretation with radiology: I have reviewed the radiologist's reading. Radiologist Impression: US/US abdomen limited IMPRESSION: Mildly distended gallbladder demonstrating gallstones and a small amount of pericholecystic fluid. Acute cholecystitis is within the differential. Clinical correlation is recommended. HIDA imaging may be warranted. External Record Review External record reviewed: Inpatient record and Outpatient record Social Determinants Patient?s care significantly limited by Social Determinants of Health including: Inadequate housing, Low income, Problems related to employment and Other Social Determinant of Health Critical Care Time Critical Care Time Critical Care Time: Yes Total Critical Care Time: 60 Attestation: Insert critical care Discharge Plan Discharge Clinical Impression: Cholecystitis, Nausea & vomiting Patient Disposition: Admitted As Inpatient
[2023-10-18] MEDS: ondansetron HCL 4 MG/2 ML VIAL IVPUSH (09:32)
[2023-10-18] MEDS: Ketorolac Tromethamine 15 MG/ML VIAL 30 MG IVPUSH (09:32)
[2023-10-18 09:34] LABS: MANUAL DIFF FLAG NO
[2023-10-18 09:37] LABS: Basophils Percent Auto 0.4 % (0-2); Eosinophils Absolute Auto 0.4 X10*3/uL (0.0-0.4); Eosinophils Percent Auto 3.8 % (0-4); Hemoglobin 12.6 g/dl (12.0-16.0); Imm Gran Abs Auto 0.02 X10*3/uL (0.00-0.03); Imm Gran Pct Auto 0.2 % (0.0-0.4); Lymphocytes Absolute Auto 2.4 X10*3/uL (1.2-4.9); Lymphocytes Percent Auto 23.7 % (20-40); Mean Corpuscular HGB Conc 32.3 g/dl (31.0-35.0); Mean Corpuscular Hemoglobin 27.6 pg (27.0-33.0); Mean Corpuscular Volume 85.3 fL (80.0-98.0); Mean Platelet Volume 9.9 fL (9.4-12.3); Monocytes Absolute Auto 0.6 X10*3/uL (0.1-1.2); Monocytes Percent Auto 5.9 % (2-11); Neutrophils Absolute Auto 6.7 x10*3/uL (2.0-8.3); Platelet Count 266 X10*3/uL (160-400); Red Blood Count 4.57 X10*6/uL (4.20-5.50); Red Cell Distribution Width 14.2 % (11.0-16.0); White Blood Count 10.2 X10*3/uL (4.8-10.8)
--- NOTE | 2023-10-18 09:44 | PC.NURSE ---
reporting 10 out of 10 abdominal pain since this morning. IV established, labs obtained and sent. medicated per the NOV. provided with warm blanket, call friedman within reach.
[2023-10-18 09:46] LABS: INTERNATIONAL NORM RATIO 0.9 (0.9-1.1); Prothrombin Time 11.5 SEC (11.1-13.3)
[2023-10-18 09:57] LABS: Alanine Aminotransferase 19 U/L (0-31); Albumin Level 3.9 g/dL (3.5-5.0); Alkaline Phosphatase 56 U/L (39-117); Anion Gap 14 (12-20); Aspartate Amino Transferase 30 U/L (5-31); Bilirubin Total 0.3 mg/dL (0.0-1.0); Blood Urea Nitrogen 10 mg/dL (9-16); Calcium 9.3 mg/dL (8.4-10.2); Carbon Dioxide 22 mmol/L (22-29); Chloride 109 mmol/L (96-108); Creatinine Clr Calc Pharmacy 90.7; Estimated Glomerular Filt Rate > 60; Ethanol < 10 mg/dL; Glucose Random 106 mg/dL (60-115); Lipase 13 U/L (8-78); Magnesium 2.1 mg/dL (1.6-2.6); Potassium 4.6 mmol/L (3.3-5.1); Sodium 140 mmol/L (135-145); Total Protein 8.1 g/dL (6.5-8.0)
--- NOTE | 2023-10-18 09:59 | PC.NURSE ---
ultrasound at bedside at this time
[2023-10-18 10:13] LABS: HCG Quantitative < 2 mIU/mL
[2023-10-18] MEDS: iohexoL 350 MG/ML 100 ML INFUS..BTL 85 ML IV (10:28)
[2023-10-18 10:40] VITALS: BP 157/92; PULSE 41; RESP 14; O2SAT 100
--- NOTE | 2023-10-18 11:17 | PC.NURSE ---
appears to be sleeping at this time with even and unlabored respirations
[2023-10-18] MEDS: 0.9 % Sodium Chloride 1,000 ML 999 ML IV (12:50)
--- NOTE | 2023-10-18 12:52 | P.CONGS_ITS ---
History of Present Illness Consult details Consult date: 10/18/23 Requesting physician: Buffy Aguilera Narrative: 28-year-old female patient presented to the emergency department with complaints of right upper quadrant abdominal pain. Patient has a history of IV drug use and apparently took heroin today. Patient was noted to be tender in the right upper quadrant therefore an ultrasound of the abdomen was obtained. This revealed evidence of gallstones and wall thickening suggestive of acute cholecystitis due to cholelithiasis. CT abdomen and pelvis also showed evidence of cholecystitis. Surgical consultation was requested for management of the cholecystitis. Review of Systems 2 Review of Systems: Yes Unobtainable due to mental status [facility] Social History Social History Alcohol intake: never Patient Tobacco Use Status: Never used Tobacco Substance Use Type: Heroin Advance Directives: No Meds Allergies Allergy/AdvReac Type Severity Reaction Status Date / Time No Known Allergies Allergy Verified 10/18/23 08:47 [No Known Allergies*] Active Medications: Current Medications Sodium Chloride (Ns) 1,000 mls @ 999 mls/hr IV .Q1H1M SHARDA Stop: 10/18/23 13:30 Last Admin: 10/18/23 12:50 Dose: 999 mls/hr Physical Exam 2 Vital Signs: Vital Signs: Last Vital Signs Temp 98 F 10/18/23 08:47 Pulse 41 L 10/18/23 10:40 Resp 14 10/18/23 10:40 BP 157/92 H 10/18/23 10:40 Pulse Ox 100 10/18/23 10:40 O2 Del Method Room Air 10/18/23 10:40 BMI result Body Mass Index 20.6 Const: General: intoxicated appearing and patient obtunded Nutritional Appearance: thin Orientation/consciousness: patient obtunded Resp: Effort & Inspection: normal respiratory effort GI: Other: Exam unreliable due to patient's obtunded state Inspection: Yes normal to inspection Palpation (GI): Soft to palpation, nontender, no guarding and not rigid Skin: Other: Warm, dry, no rash Neuro: General: patient obtunded Results Labs 10/18/23 09:27 10/18/23 09:27 Labs: Abnormal lab results 10/18/23 Range/Units 09:27 Chloride 109 H (96-108) mmol/L Total Protein 8.1 H (6.5-8.0) g/dL Short CBC 10/18/23 Range/Units 09:27 WBC 10.2 (4.8-10.8) X10*3/uL Hgb 12.6 (12.0-16.0) g/dl Hct 39.0 (37.0-47.0) % Plt Count 266 (160-400) X10*3/uL BMP 10/18/23 09:27 Sodium 140 Potassium 4.6 Chloride 109 H Carbon Dioxide 22 BUN 10 Creatinine 0.80 Calcium 9.3 D Liver Function 10/18/23 Range/Units 09:27 Total Bilirubin 0.3 (0.0-1.0) mg/dL AST 30 (5-31) U/L ALT 19 (0-31) U/L Alkaline Phosphatase 56 (39-117) U/L Albumin 3.9 (3.5-5.0) g/dL All other labs normal. Assessment and Plan (1) IV drug abuse: Status: Acute (2) Cholecystitis: Status: Acute Plan 28-year-old female patient with substance abuse history presenting with complaints of right upper quadrant abdominal pain. My examination revealed no tenderness although examination is suspect due to the patient's obtunded state. Patient clearly has untreated substance abuse and is not a suitable candidate for surgery at this time. Laboratories are normal therefore the gallbladder can be treated as an outpatient. Discussed with hospitalist team. Procedures Date of Service Date of Service: 10/18/23
[2023-10-18] MEDS: cefTRIAXone sodium 1 GM in 0.9 % Sodium Chloride 50 ML IV (12:55)
--- NOTE | 2023-10-18 15:18 | PHA.MEDREC ---
Pharmacy Consult ? Medication Reconciliation Pharmacy has completed the medication reconciliation. Plate Gauger Lj spoke with patient who reported no medication at home. Charito Stiles, PharmD
[2023-10-18] MEDS: Morphine Sulfate 4 MG/ML CARTRIDGE IVPUSH (15:34)
--- NOTE | 2023-10-18 15:38 | PC.NURSE ---
patient awake, stating the pain has returned. vomiting in room. medicated per the MAR for pain, requesting nausea medication
[2023-10-18 15:39] VITALS: BP 165/91; PULSE 45; RESP 18; TEMP 37; O2SAT 98
--- NOTE | 2023-10-18 15:39 | PM.IMHP ---
History of Present Illness Date of Service: 10/18/23 Attending physician on admission: Wendie Hurst Chief Complaint: abd pain 28-year-old female with history of IV drug abuse presents to the ED earlier today for evaluation of right upper quadrant pain, nausea, vomiting that started earlier this morning. She reports sudden onset right upper quadrant pain that was not precipitated by anything in particular. She states she had EN banana bread, mashed potatoes, and beef last night. Denies any diarrhea, fevers, chills, constipation, melena, hematochezia, sick contacts. She currently reports 5/10 pain in the right upper quadrant that does not radiate. On arrival, patient is bradycardic to 45, vitals otherwise stable. There is no leukocytosis. Renal function electrolyte levels are normal. Hepatic function is normal. Urinalysis and urine tox screen are pending. Abdominal ultrasound shows mildly distended gallbladder demonstrating gallstones and small amount of pericholecystic fluid. CT abdomen/pelvis shows hepatosplenomegaly with periportal edema as well as gallbladder hydrops with cholelithiasis and pericholecystic fluid suggestive of cholecystitis. HIDA scan is pending. In the ED, given IV ketorolac. Denies ongoing substance use. No cigarettes or etoh use. Review of Systems Review of Systems: General: No fevers, malaise, unintentional weight loss Cardiovascular: No chest pain, palpitations, or leg edema Respiratory: No shortness of breath, wheezing, cough GI: +abdominal pain, nausea, vomiting. No diarrhea : No dysuria, hematuria, increased urinary frequency MSK: No myalgia, back pain Neuro: No headaches, weakness, paresthesias Skin: No rashes or lesions PMFSH Medical History IV drug abuse Social History Alcohol intake: never Patient Tobacco Use Status: Never used Tobacco Substance Use Type: Heroin Advance Directives: No Meds Allergies Allergy/AdvReac Type Severity Reaction Status Date / Time No Known Allergies Allergy Verified 10/18/23 08:47 [No Known Allergies*] Active Medications: Current Medications Acetaminophen (Acetaminophen 325 Mg Tablet) 650 mg PO Q6H PRN PRN Reason: Pain, Mild (Pain Scale 1-3) Morphine Sulfate (Morphine Sulfate 4 Mg/Ml Cartridge) 2 mg IVPUSH Q6H PRN; Protocol PRN Reason: Pain, Severe (Pain Scale 7-10) Ondansetron HCl (Ondansetron Hcl 4 Mg/2 Ml Vial) 4 mg IVPUSH Q8H PRN PRN Reason: Nausea and Vomiting Senna (Sennosides 8.6 Mg Tablet) 17.2 mg PO BEDTIME PRN PRN Reason: Constipation Sodium Chloride (0.9 % Sodium Chloride Flush 3 Ml Syringe) 3 ml [facility] Home Medications Medication Instructions Recorded Confirmed Last Taken Type No Known Home Meds 10/18/23 10/18/23 Unknown History Physical Exam Vital Signs and Narrative: Vital Signs: Last Vital Signs Temp 98 F 10/18/23 08:47 Pulse 41 L 10/18/23 10:40 Resp 14 10/18/23 10:40 BP 157/92 H 10/18/23 10:40 Pulse Ox 100 10/18/23 10:40 O2 Del Method Room Air 10/18/23 10:40 BMI result Body Mass Index 20.6 Constitutional - Awake and Alert, No apparent distress Eyes - PERRLA, EOMI Cardiovascular - S1S2, RRR, No edema Respiratory - Normal lung expansion, Normal respiratory effort, No respiratory distress, CTA bilaterally Gastrointestinal - RUQ ttp without guarding or rebound, neg alatorre sign. ND; +BS Extremities - no calf tenderness bilaterally, no swelling Skin - Warm/Dry Neurological - Alert & oriented x4, CN II-XII in tact Psychological - Appropriate affect Results Labs 10/18/23 09:27 10/18/23 09:27 Labs: Laboratory Results - last 24 hr 10/18/23 09:27 MCV 85.3 MCH 27.6 MCHC 32.3 RDW 14.2 Plt Count 266 MPV 9.9 Immature Gran % (Auto) 0.2 Neut % (Auto) 66.0 Lymph % (Auto) 23.7 [place] % (Auto) 5.9 Eos % (Auto) 3.8 Baso % (Auto) 0.4 Lymph # (Auto) 2.4 [place] # (Auto) 0.6 Eos # (Auto) 0.4 Baso # (Auto) 0.0 Abs Immat Gran (auto) 0.02 Absolute Neuts (auto) 6.7 Absolute Nucleated RBC 0.000 Nucleated RBC % (auto) 0.0 PT 11.5 INR 0.9 Anion Gap 14 Estim Creat Clear Calc 90.7 Estimated GFR > 60 Random Glucose 106 Calcium 9.3 D Magnesium 2.1 Total Bilirubin 0.3 AST 30 ALT 19 Alkaline Phosphatase 56 Total Protein 8.1 H Albumin 3.9 Lipase 13 Beta HCG, Quant < 2 Ethyl Alcohol < 10 Imaging Radiologist's Impressions: Impressions Abdomen Ultrasound 10/18/23 10:04 IMPRESSION: Mildly distended gallbladder demonstrating gallstones and a small amount of pericholecystic fluid. Acute cholecystitis is within the differential. Clinical correlation is recommended. HIDA imaging may be warranted. Abdomen/Pelvis CT 10/18/23 10:44 IMPRESSION: 1. Hepatosplenomegaly with periportal edema. 2. Gallbladder hydrops with cholelithiasis and pericholecystic fluid, suggestive for cholecystitis. 3. Constipation. 4. Pelvic congestion syndrome. Fleischner guidelines were followed. Assessment and Plan (1) Cholecystitis: Status: Acute (2) Nausea & vomiting: Status: Acute Plan 28-year-old female with history of IV drug abuse to be observed for acute cholecystitis #Acute cholecystitis -HIDA scan pending -abd u/s and ct abd/pelvis shows possible cholecystitis with gallbladder hydrops and cholelithiasis -hold on empiric abx per surgery. no fevers, leukocytosis -pain management prn -antiemetics prn -clear liquids for now, npo after midnight in case of procedure -Gen surgery consult #Hx IVDa -denies ongoing use -urine tox screen positive for thc, cocaine, fentanyl, opiates -addiction med consult #Bradycardia -chronic, asymptomatic. NO AV roshan blocks. Monitor DVT prophylaxis- scps Full code Quality Stroke Does the patient have a stroke diagnosis?: No VTE Prior VTE?: No VTE Risk Level:: Medical - moderate - high VTE Device Contraindication: N/A - Device Ordered VTE Drug Contraindication: Treatment Not Indicated
[2023-10-18 15:40] LABS: Appearance Urine Clear; Color Urine Yellow; Glucose Urine UA Negative (Negative); Leukocyte Esterase Urine Negative (Negative); Nitrite Urine Negative (Negative); PH 5.5 (5.0-9.0); Specific Gravity - Urine >= 1.030 (1.005-1.025); UMIC TRIGGER UACC YES; Urine Blood Trace (Negative); Urine Ketones 15 mg/dL (Negative); Urine Protein 30 (1+) mg/dL (Neg-Trace)
[2023-10-18 15:46] LABS: Amphetamine Screen Urine Not Detected (Not Detect); Barbiturates, Urine Not Detected (Not Detect); Benzodiazepines Screen Urine Not Detected (Not Detect); Cannabinoid Screen Urine POSITIVE (Not Detect); Cocaine Screen Urine POSITIVE (Not Detect); Fentanyl, urine POSITIVE (Not Detect); Opiate Screen Urine POSITIVE (Not Detect); Phencyclidine Screen Urine Not Detected (Not Detect)
[2023-10-18 15:52] LABS: Bacteria Urine 4+ (None Seen); Calcium Oxalate Crystals Urine Present; Hyaline Casts Urine 0-2 /LPF (0-2); RBC Urine 0-2 /HPF (0-2); UACC Culture Trigger YES
--- NOTE | 2023-10-18 16:22 | PC.NURSE ---
this RN to bedside and found patient snorting heroin. patient's belongings locked up in [place] at this time, cell phone remains with patient at bedside. states she takes methadone uses [facility] on [address] - 60mg. last went to clinic two days ago.
[2023-10-18] MEDS: 0.9 % Sodium Chloride Flush 3 ML SYRINGE IVFLUSH (17:23)
[2023-10-18 18:07] VITALS: BP 135/94; PULSE 47; RESP 16; TEMP 37.3; O2SAT 100
[2023-10-18] MEDS: Morphine Sulfate 4 MG/ML CARTRIDGE 2 MG IVPUSH (18:22)
--- NOTE | 2023-10-18 18:50 | PC.NURSE ---
patient a&ox3, c/o rt flank pain 07/10, pt medicated for pain per order, pt offered clear liquid diet for dinner, pt to be NPO at midnight, call friedman within reach, will continue to monitor.
[2023-10-18] MEDS: HYDROmorphone HCl 1 MG/ML SYRINGE IVPUSH (20:17)
--- NOTE | 2023-10-18 22:06 | MHC.CM.ED ---
Attempted to meet with patient to discuss discharge planning and review MARTÍNEZ. Pt sleeping soundly at this time.
[2023-10-19] VITALS (10 sets, daily range): BP systolic 129–152; BP diastolic 63–99; PULSE 50–74; RESP 16–18; TEMP 36–37.6; O2SAT 96–100
[2023-10-19] MEDS: Morphine Sulfate 4 MG/ML CARTRIDGE 2 MG IVPUSH (00:32)
[2023-10-19] MEDS: 0.9 % Sodium Chloride Flush 3 ML SYRINGE IVFLUSH ×3 (00:36→19:59)
[2023-10-19] MEDS: HYDROmorphone HCl 1 MG/ML SYRINGE IVPUSH ×6 (01:57→22:41)
[2023-10-19 05:53] LABS: MANUAL DIFF FLAG NO
[2023-10-19 06:12] LABS: Basophils Percent Auto 0.2 % (0-2); Hemoglobin 13.7 g/dl (12.0-16.0); Imm Gran Abs Auto 0.12 X10*3/uL (0.00-0.03); Imm Gran Pct Auto 0.7 % (0.0-0.4); Lymphocytes Absolute Auto 1.5 X10*3/uL (1.2-4.9); Mean Corpuscular HGB Conc 32.6 g/dl (31.0-35.0); Mean Corpuscular Hemoglobin 27.7 pg (27.0-33.0); Mean Platelet Volume 10.2 fL (9.4-12.3); Monocytes Absolute Auto 0.9 X10*3/uL (0.1-1.2); Monocytes Percent Auto 5.5 % (2-11); Neutrophils Percent Auto 84.6 % (45-73); Platelet Count 325 X10*3/uL (160-400); Red Blood Count 4.94 X10*6/uL (4.20-5.50); Red Cell Distribution Width 14.2 % (11.0-16.0); White Blood Count 16.5 X10*3/uL (4.8-10.8)
[2023-10-19 06:19] LABS: Anion Gap 16 (12-20); Blood Urea Nitrogen 8 mg/dL (9-16); Calcium 9.4 mg/dL (8.4-10.2); Carbon Dioxide 22 mmol/L (22-29); Chloride 104 mmol/L (96-108); Estimated Glomerular Filt Rate > 60; Glucose Random 120 mg/dL (60-115); Sodium 138 mmol/L (135-145)
--- NOTE | 2023-10-19 07:16 | PC.NURSE ---
this racebook writer received report at 0700. pt still listed on [facility] tracker. this racebook writer did discharge assessment and placed pt in appropriate room.
[2023-10-19 07:39] LABS: Alanine Aminotransferase 23 U/L (0-31); Albumin Level 3.8 g/dL (3.5-5.0); Alkaline Phosphatase 68 U/L (39-117); Aspartate Amino Transferase 24 U/L (5-31); Bilirubin Direct 0.3 mg/dL (0.0-0.5); Bilirubin Total 0.7 mg/dL (0.0-1.0); Total Protein 7.8 g/dL (6.5-8.0)
--- NOTE | 2023-10-19 08:38 | PM.PNGS ---
Subjective Subjective Date of Service: 10/19/23 Interval history: Patient reports pain in the right lower quadrant, now 07/10, requesting pain medications. Reports nausea without vomiting. Physical Exam Vital Signs: Vital Signs: Last Vital Signs Temp 98.4 F 10/19/23 07:29 Pulse 53 10/19/23 07:29 Resp 16 10/19/23 07:29 BP 129/63 10/19/23 07:29 Pulse Ox 97 10/19/23 07:29 O2 Del Method Room Air 10/19/23 07:29 BMI result Body Mass Index 20.6 Const: General: lethargic and tired appearing Nutritional Appearance: thin Orientation/consciousness: lethargic Eyes: Sclerae: sclerae normal Resp: Effort & Inspection: normal respiratory effort GI: Inspection: Yes normal to inspection Palpation (GI): Soft to palpation, Tenderness to palpation present (GI) in the RLQ and in the RUQ; Edmonds's sign negative and with no rebound tenderness, no guarding and not rigid Skin: General skin exam: dry skin and no erythema Extrem: General: No edema Objective Data Active Medications Acetaminophen (Acetaminophen 325 Mg Tablet) 650 mg PO Q6H PRN PRN Reason: Pain, Mild (Pain Scale 1-3) Hydromorphone HCl (Hydromorphone Hcl 1 Mg/Ml Syringe) 1 mg IVPUSH Q4H PRN; Protocol PRN Reason: Pain, Severe (Pain Scale 7-10) Last Admin: 10/19/23 05:58 Dose: 1 mg Documented By: KOKI Morphine Sulfate (Morphine Sulfate 4 Mg/Ml Cartridge) 2 mg IVPUSH Q6H PRN; Protocol PRN Reason: Pain, Severe (Pain Scale 7-10) Last Admin: 10/19/23 00:32 Dose: 2 mg Documented By: KOKI Ondansetron HCl (Ondansetron Hcl 4 Mg/2 Ml Vial) 4 mg IVPUSH Q8H PRN PRN Reason: Nausea and Vomiting Senna (Sennosides 8.6 Mg Tablet) 17.2 mg PO BEDTIME PRN PRN Reason: Constipation Sodium Chloride (0.9 % Sodium Chloride Flush 3 Ml Syringe) 3 ml [facility] [place] Last Admin: 10/19/23 00:36 Dose: 3 ml Documented By: KOKI Labs 10/19/23 05:06 10/19/23 05:06 Labs: Laboratory Results - last 24 hr 10/18/23 10/18/23 10/19/23 09:27 15:31 05:06 MCV 85.3 85.0 MCH 27.6 27.7 MCHC 32.3 32.6 RDW 14.2 14.2 Plt Count 266 325 MPV 9.9 10.2 Immature Gran % (Auto) 0.2 0.7 H Neut % (Auto) 66.0 84.6 H Lymph % (Auto) 23.7 9.0 L [place] % (Auto) 5.9 5.5 Eos % (Auto) 3.8 0.0 Baso % (Auto) 0.4 0.2 Lymph # (Auto) 2.4 1.5 [place] # (Auto) 0.6 0.9 Eos # (Auto) 0.4 0.0 Baso # (Auto) 0.0 0.0 Abs Immat Gran (auto) 0.02 0.12 H Absolute Neuts (auto) 6.7 14.0 H Absolute Nucleated RBC 0.000 0.000 Nucleated RBC % (auto) 0.0 0.0 PT 11.5 INR 0.9 Anion Gap 14 16 Estim Creat Clear Calc 90.7 110.0 Estimated GFR > 60 > 60 Random Glucose 106 120 H Calcium 9.3 D 9.4 Magnesium 2.1 Total Bilirubin 0.3 0.7 Direct Bilirubin 0.3 AST 30 24 ALT 19 23 Alkaline Phosphatase 56 68 Total Protein 8.1 H 7.8 Albumin 3.9 3.8 Lipase 13 Beta HCG, Quant < 2 Urine Color Yellow Urine Appearance Clear Urine pH 5.5 Ur Specific [place] >= 1.030 H Urine Protein 30 (1+) H Urine Glucose (UA) Negative Urine Ketones 15 Urine Blood Trace H Urine Nitrite Negative Ur Leukocyte Esterase Negative Urine RBC 0-2 Urine WBC 6-10 H Ur Squamous Epith Cells 11-20 Calcium Oxalate Crystal Present Urine Bacteria 4+ Hyaline Casts 0-2 Urine Opiates Screen POSITIVE H Urine Fentanyl Screen POSITIVE H Ur Barbiturates Screen Not Detected Ur Phencyclidine Scrn Not Detected Ur Amphetamines Screen Not Detected U Benzodiazepines Scrn Not Detected Urine Cocaine Screen POSITIVE H U Marijuana (THC) Screen POSITIVE H Ethyl Alcohol < 10 Procedures Date of Service Date of Service: 10/19/23 Progress Note: A&P Assessment and plan (1) Nausea & vomiting: Status: Acute (2) Cholecystitis: Status: Acute Plan 3y year old female with polysubstance abuse presenting with abdominal pain RUQ and RLQ, gallstones and wall thickening. WBC yesterday was normal but elevated today. Will await HIDA scan today. If nonvisualization of GB, will add on schedule for lap choley. Patient understands and agrees with the plan. Time Spent With Patient Time: Total time managing care of this patient today ____ minutes. Quality Stroke Does the patient have a stroke diagnosis?: No VTE Prior VTE?: No VTE Risk Level:: Medical - moderate - high VTE Device Contraindication: N/A - Device Ordered VTE Drug Contraindication: Treatment Not Indicated
[2023-10-19] MEDS: Dextrose 5 % and Lactated Ring 1,000 ML 100 ML IVCONT (09:17)
--- NOTE | 2023-10-19 09:36 | HO.PM.IMPN ---
Subjective Subjective Date of Service: 10/19/23 Interval History: Patient awake alert complaining of pain right upper quadrant, denies generalized pain, denies withdrawal symptoms denies sweating, admit to daily snorting cocaine, denies IV drugs, denies fever, no chills, no diarrhea. Review of Systems All other system reviewed and negative Physical Exam Vital Signs: Vital Signs: Last Vital Signs Temp 98.4 F 10/19/23 07:29 Pulse 53 10/19/23 07:29 Resp 16 10/19/23 07:29 BP 129/63 10/19/23 07:29 Pulse Ox 97 10/19/23 07:29 O2 Del Method Room Air 10/19/23 07:29 BMI result Body Mass Index 20.6 Const: Other: General alert oriented x3, resting comfortably in no acute distress. Anicteric sclera Neck supple CVS regular rate rhythm, Respiratory lungs clear to auscultation, no respiratory distress, no wheeze, no rhonchi. Gastrointestinal abdomen right upper quadrant tenderness to palpation, soft, bowel sounds audible, no guarding , no rigidity. Extremities no edema. Neuro nonfocal Skin no rash Psych appropriate affect Objective Data Active Medications Acetaminophen (Acetaminophen 325 Mg Tablet) 650 mg PO Q6H PRN PRN Reason: Pain, Mild (Pain Scale 1-3) Hydromorphone HCl (Hydromorphone Hcl 1 Mg/Ml Syringe) 1 mg IVPUSH Q4H PRN; Protocol PRN Reason: Pain, Severe (Pain Scale 7-10) Last Admin: 10/19/23 05:58 Dose: 1 mg Documented By: KOKI Dextrose/Lactated Ringer's (D5lr) 1,000 mls @ 100 mls/hr IVCONT .Q10H [facility] Last Admin: 10/19/23 09:17 Dose: 100 mls/hr Documented By: DOBROB Ondansetron HCl (Ondansetron Hcl 4 Mg/2 Ml Vial) 4 mg IVPUSH Q8H PRN PRN Reason: Nausea and Vomiting Senna (Sennosides 8.6 Mg Tablet) 17.2 mg PO BEDTIME PRN PRN Reason: Constipation Sodium Chloride (0.9 % Sodium Chloride Flush 3 Ml Syringe) 3 ml IVFLUSH QSHIFT [facility] Last Admin: 10/19/23 09:15 Dose: 3 ml Documented By: MARC Labs 10/19/23 05:06 10/19/23 05:06 Labs: Laboratory Results - last 24 hr 10/18/23 10/18/23 10/19/23 09:27 15:31 05:06 MCV 85.3 85.0 MCH 27.6 27.7 MCHC 32.3 32.6 RDW 14.2 14.2 Plt Count 266 325 MPV 9.9 10.2 Immature Gran % (Auto) 0.2 0.7 H Neut % (Auto) 66.0 84.6 H Lymph % (Auto) 23.7 9.0 L [place] % (Auto) 5.9 5.5 Eos % (Auto) 3.8 0.0 Baso % (Auto) 0.4 0.2 Lymph # (Auto) 2.4 1.5 [place] # (Auto) 0.6 0.9 Eos # (Auto) 0.4 0.0 Baso # (Auto) 0.0 0.0 Abs Immat Gran (auto) 0.02 0.12 H Absolute Neuts (auto) 6.7 14.0 H Absolute Nucleated RBC 0.000 0.000 Nucleated RBC % (auto) 0.0 0.0 PT 11.5 INR 0.9 Anion Gap 14 16 Estim Creat Clear Calc 90.7 110.0 Estimated GFR > 60 > 60 Random Glucose 106 120 H Calcium 9.3 D 9.4 Magnesium 2.1 Total Bilirubin 0.3 0.7 Direct Bilirubin 0.3 AST 30 24 ALT 19 23 Alkaline Phosphatase 56 68 Total Protein 8.1 H 7.8 Albumin 3.9 3.8 Lipase 13 Beta HCG, Quant < 2 Urine Color Yellow Urine Appearance Clear Urine pH 5.5 Ur Specific [place] >= 1.030 H Urine Protein 30 (1+) H Urine Glucose (UA) Negative Urine Ketones 15 Urine Blood Trace H Urine Nitrite Negative Ur Leukocyte Esterase Negative Urine RBC 0-2 Urine WBC 6-10 H Ur Squamous Epith Cells 11-20 Calcium Oxalate Crystal Present Urine Bacteria 4+ Hyaline Casts 0-2 Urine Opiates Screen POSITIVE H Urine Fentanyl Screen POSITIVE H Ur Barbiturates Screen Not Detected Ur Phencyclidine Scrn Not Detected Ur Amphetamines Screen Not Detected U Benzodiazepines Scrn Not Detected Urine Cocaine Screen POSITIVE H U Marijuana (THC) Screen POSITIVE H Ethyl Alcohol < 10 Assessment and Plan (1) Nausea & vomiting: Status: Acute (2) Cholecystitis: Status: Acute Plan 28-year-old female with history of IV drug abuse to be observed for acute cholecystitis #Acute cholecystitis -persistent right upper quadrant abdominal pain, no fevers, WBC bumped to 16.5, LFTs normal -HIDA scan scheduled for today -abd u/s and ct abd/pelvis shows possible cholecystitis with gallbladder hydrops and cholelithiasis -continue pain management , antiemetics, NPO, start IV fluids -Gen surgery consult #Hx IVDa -urine tox screen positive for thc, cocaine, fentanyl, opiates, denies IV drug use -addiction med consult #Bradycardia -chronic, asymptomatic, stable, NO AV roshan blocks. Monitor DVT prophylaxis- scps Full code Quality Stroke Does the patient have a stroke diagnosis?: No VTE Prior VTE?: No VTE Risk Level:: Medical - moderate - high VTE Device Contraindication: N/A - Device Ordered VTE Drug Contraindication: Treatment Not Indicated
--- NOTE | 2023-10-19 11:35 | ECG_ITS ---
Test Reason : POSITIVE COCAINE Blood Pressure : / mmHG Vent. Rate : 061 BPM Atrial Rate : 061 BPM P-R Int : 122 ms QRS Dur : 090 ms QT Int : 572 ms P-R-T Axes : 069 076 072 degrees QTc Int : 575 ms Sinus rhythm with marked sinus arrhythmia Prolonged QT Abnormal ECG When compared with ECG of 24-DEC-2021 14:21, QT has lengthened Referred By: Destinee Santiago Electronically Signed By:EFREN JACOBS
--- NOTE | 2023-10-19 11:49 | PM.EVENT ---
Event Note Date of Service: 10/19/23 Event Note: Patient continues to have pain 10/10 in severity HIDA scan after 45 minutes revealed nonvisualization of the gallbladder with brisk activity into the small-bowel. Findings of the HIDA scan along with CT and ultrasound are highly suggestive of acute cholecystitis. I would recommend laparoscopic or possible open cholecystectomy giving her ongoing symptoms. After discussion of the procedure, risks, and alternatives, she consents to laparoscopic or possible open cholecystectomy. She has been added onto the operative schedule. Time Spent With Patient Time: Total time managing care of this patient today ____ minutes.
--- NOTE | 2023-10-19 12:14 | P.CONAN_ITS ---
HPI - Anesthesia Eval Consult details Narrative: pt seen , unhappy, complaining of pain , irritable, refusing to give urine saying she cannot for tox screen, per nursing psych saw her and ordered methadone to be given as they feel she is withdrawing from opioids ,pt reports zero response to dilaudid. given polysubstance abuse and current withdrawal, if possible await till pt is more stable due to increased risk as patients can under anesthesia present with marked hemodynamic instability due to poor nutritional status and hypovolemia and unpredictable anesthetic requirements. discussed with surgeon , if emergent will need 2 physician consent and proceed anesthesia ,consent not valid due to drug intoxication. stat repeat urine tox screen ordered [facility] Active Problems Active Problems: All Active Problems (Updated 10/18/23 @ 11:29 by STEPAN Lindsay) Nausea & vomiting (Acute) Cholecystitis (Acute) Past Medical History Medical History IV drug abuse Social History Social History Alcohol intake: never Patient Tobacco Use Status: Never used Tobacco Substance Use Type: Heroin Currently Displaying Signs/Symptoms of Drug Intoxication Withdrawal: No Advance Directives: No Meds Allergies Allergy/AdvReac Type Severity Reaction Status Date / Time No Known Allergies Allergy Verified 10/18/23 08:47 [No Known Allergies*] Active Medications: Current Medications Acetaminophen (Acetaminophen 325 Mg Tablet) 650 mg PO Q6H PRN PRN Reason: Pain, Mild (Pain Scale 1-3) Hydromorphone HCl (Hydromorphone Hcl 1 Mg/Ml Syringe) 1 mg IVPUSH Q4H PRN; Protocol PRN Reason: Pain, Severe (Pain Scale 7-10) Last Admin: 10/19/23 10:19 Dose: 1 mg Dextrose/Lactated Ringer's (D5lr) 1,000 mls @ 100 mls/hr IVCONT .Q10H [facility] Last Infusion: 10/19/23 11:50 Dose: 100 mls/hr Ondansetron HCl (Ondansetron Hcl 4 Mg/2 Ml Vial) 4 mg IVPUSH Q8H PRN PRN Reason: Nausea and Vomiting Senna (Sennosides 8.6 Mg Tablet) 17.2 mg PO BEDTIME PRN PRN Reason: Constipation Sodium Chloride (0.9 % Sodium Chloride Flush 3 Ml Syringe) 3 ml IVFLUSH QSHIFT [facility] Last Admin: 10/19/23 09:15 Dose: 3 ml Home Medications Medication Instructions Recorded Confirmed Last Taken Type No Known Home Meds 10/18/23 10/18/23 Unknown History Exam Height,Weight and Vital Signs: Height 5 ft 4 in Weight 54.431 kg Last Vital Signs Temp 98.8 F 10/19/23 11:33 Pulse 56 10/19/23 11:33 Resp 16 10/19/23 11:33 BP 152/96 H 10/19/23 11:33 Pulse Ox 96 10/19/23 11:33 O2 Del Method Room Air 10/19/23 11:33 Pertinent Lab Results Pertinent Lab Results: Laboratory Tests 10/18/23 10/18/23 10/19/23 09:27 15:31 05:06 WBC 10.2 16.5 H RBC 4.57 4.94 Hgb 12.6 13.7 Hct 39.0 42.0 MCV 85.3 85.0 MCH 27.6 27.7 MCHC 32.3 32.6 RDW 14.2 14.2 Plt Count 266 325 MPV 9.9 10.2 Immature Gran % (Auto) 0.2 0.7 H Neut % (Auto) 66.0 84.6 H Lymph % (Auto) 23.7 9.0 L [place] % (Auto) 5.9 5.5 Eos % (Auto) 3.8 0.0 Baso % (Auto) 0.4 0.2 Lymph # (Auto) 2.4 1.5 [place] # (Auto) 0.6 0.9 Eos # (Auto) 0.4 0.0 Baso # (Auto) 0.0 0.0 Abs Immat Gran (auto) 0.02 0.12 H Absolute Neuts (auto) 6.7 14.0 H Absolute Nucleated RBC 0.000 0.000 Nucleated RBC % (auto) 0.0 0.0 PT 11.5 INR 0.9 Sodium 140 138 Potassium 4.6 4.0 Chloride 109 H 104 Carbon Dioxide 22 22 Anion Gap 14 16 BUN 10 8 L Creatinine 0.80 0.66 Estim Creat Clear Calc 90.7 110.0 Estimated GFR > 60 > 60 Random Glucose 106 120 H Calcium 9.3 D 9.4 Magnesium 2.1 Total Bilirubin 0.3 0.7 Direct Bilirubin 0.3 AST 30 24 ALT 19 23 Alkaline Phosphatase 56 68 Total Protein 8.1 H 7.8 Albumin 3.9 3.8 Lipase 13 Beta HCG, Quant < 2 Urine Color Yellow Urine Appearance Clear Urine pH 5.5 Ur Specific [place] >= 1.030 H Urine Protein 30 (1+) H Urine Glucose (UA) Negative Urine Ketones 15 Urine Blood Trace H Urine Nitrite Negative Ur Leukocyte Esterase Negative Urine RBC 0-2 Urine WBC 6-10 H Ur Squamous Epith Cells 11-20 Calcium Oxalate Crystal Present Urine Bacteria 4+ Hyaline Casts 0-2 Urine Opiates Screen POSITIVE H Urine Fentanyl Screen POSITIVE H Ur Barbiturates Screen Not Detected Ur Phencyclidine Scrn Not Detected Ur Amphetamines Screen Not Detected U Benzodiazepines Scrn Not Detected Urine Cocaine Screen POSITIVE H U Marijuana (THC) Screen POSITIVE H Ethyl Alcohol < 10
[2023-10-19 12:21] LABS: Troponin-I High Sensitivity < 2.7 ng/L (<3.5-17.0)
--- NOTE | 2023-10-19 12:55 | HE.PHANOTE ---
RE: Methadone Received methadone clinic verification form from [facility], methadone dose: 60mg last dose in clinic 10-14-23 @3098, pt took dose with her for 10-15-23.
--- NOTE | 2023-10-19 13:13 | PM.EVENT ---
Event Note Date of Service: 10/19/23 Event Note: Patient reviewed by Dr. Santiago from anesthesia. Patient now is in active withdrawal from polysubstances including fentanyl, opiates and cocaine. Anesthesia would be very difficult and unsafe during this time. In addition, proper consent is not possible. I will cancel the surgery for today and rescheduled for Sunday. I will place on antibiotics in the meantime. Time Spent With Patient Time: Total time managing care of this patient today ____ minutes.
[2023-10-19] MEDS: methADONE HCl 20 MG/2 ML ORAL.CONC 30 MG PO (13:33)
[2023-10-19 14:17] LABS: Amphetamine Screen Urine Not Detected (Not Detect); Barbiturates, Urine Not Detected (Not Detect); Benzodiazepines Screen Urine Not Detected (Not Detect); Cannabinoid Screen Urine POSITIVE (Not Detect); Cocaine Screen Urine POSITIVE (Not Detect); Fentanyl, urine POSITIVE (Not Detect); Opiate Screen Urine POSITIVE (Not Detect); Phencyclidine Screen Urine Not Detected (Not Detect)
[2023-10-19] MEDS: Piperacillin Sodium/Tazobactam 3.375 GM in 0.9 % Sodium Chloride 50 ML IV ×2 (14:57→19:59)
--- NOTE | 2023-10-19 15:12 | MHC.CM.PN ---
CM attempted to meet with pt twice today, she was sleeping and did not wake when I tried to speak with her.
[2023-10-19] MEDS: methADONE HCl 20 MG/2 ML ORAL.CONC PO (17:21)
--- NOTE | 2023-10-19 17:51 | HO.ADDICT_ITS ---
History of Present Illness Date of Service: 10/19/2023 Chief Complaint: RUQ pain Reason for Consult: OUD Sources of Information: patient interviewed HPI Narrative: Patient is a 28 year old female currently medically admitted with cholecystitis. +UDS. Patient seen by this parts data writer and corrosion control technician in room 346. Patient awake alert engaged in interview. Appearing anxious, and restless (frequently shifting legs) . Reporting she is experiencing withdrawal. States that she is engaged in OUD treatment via [facility] and is taking methadone 60mg QD. Did not appear to be diaphoretic, and denied any loose stools. Methadone was not listed in medication reconciliation. Review of Systems Constitutional: Reports as per HPI, Reports body ache(s) and Reports malaise Diagnostics Vital Signs (24Hr): Vital Signs - 24 hr 10/18/23 18:07 10/19/23 00:00 10/19/23 01:02 Temperature 99.2 F 98.7 F Pulse Rate 47 L 50 Respiratory Rate 16 16 18 Blood Pressure 135/94 H 136/86 Pulse Oximetry 100 96 Oxygen Delivery Method Room Air Room Air 10/19/23 02:27 10/19/23 03:51 10/19/23 06:28 Temperature 96.8 F Pulse Rate 54 Respiratory Rate 18 18 18 Blood Pressure 137/84 Pulse Oximetry 99 Oxygen Delivery Method Room Air 10/19/23 07:29 10/19/23 11:33 10/19/23 15:06 Temperature 98.4 F 98.8 F 98.3 F Pulse Rate 53 56 51 Respiratory Rate 16 16 18 Blood Pressure 129/63 152/96 H 131/95 H Pulse Oximetry 97 96 98 Oxygen Delivery Method Room Air Room Air Room Air BMI result Body Mass Index 20.6 Labs 10/19/23 05:06 10/19/23 05:06 Labs: Laboratory Results - last 48 hr 10/18/23 10/18/23 10/19/23 09:27 15:31 05:06 WBC 10.2 16.5 H RBC 4.57 4.94 Hgb 12.6 13.7 Hct 39.0 42.0 MCV 85.3 85.0 MCH 27.6 27.7 MCHC 32.3 32.6 RDW 14.2 14.2 Plt Count 266 325 MPV 9.9 10.2 Immature Gran % (Auto) 0.2 0.7 H Neut % (Auto) 66.0 84.6 H Lymph % (Auto) 23.7 9.0 L [place] % (Auto) 5.9 5.5 Eos % (Auto) 3.8 0.0 Baso % (Auto) 0.4 0.2 Lymph # (Auto) 2.4 1.5 [place] # (Auto) 0.6 0.9 Eos # (Auto) 0.4 0.0 Baso # (Auto) 0.0 0.0 Abs Immat Gran (auto) 0.02 0.12 H Absolute Neuts (auto) 6.7 14.0 H Absolute Nucleated RBC 0.000 0.000 Nucleated RBC % (auto) 0.0 0.0 PT 11.5 INR 0.9 Sodium 140 138 Potassium 4.6 4.0 Chloride 109 H 104 Carbon Dioxide 22 22 Anion Gap 14 16 BUN 10 8 L Creatinine 0.80 0.66 Estim Creat Clear Calc 90.7 110.0 Estimated GFR > 60 > 60 Random Glucose 106 120 H Calcium 9.3 D 9.4 Magnesium 2.1 Total Bilirubin 0.3 0.7 Direct Bilirubin 0.3 AST 30 24 ALT 19 23 Alkaline Phosphatase 56 68 Troponin I High Sens Total Protein 8.1 H 7.8 Albumin 3.9 3.8 Lipase 13 Beta HCG, Quant < 2 Urine Color Yellow Urine Appearance Clear Urine pH 5.5 Ur Specific [place] >= 1.030 H Urine Protein 30 (1+) H Urine Glucose (UA) Negative Urine Ketones 15 Urine Blood Trace H Urine Nitrite Negative Ur Leukocyte Esterase Negative Urine RBC 0-2 Urine WBC 6-10 H Ur Squamous Epith Cells 11-20 Calcium Oxalate Crystal Present Urine Bacteria 4+ Hyaline Casts 0-2 Urine Opiates Screen POSITIVE H Urine Fentanyl Screen POSITIVE H Ur Barbiturates Screen Not Detected Ur Phencyclidine Scrn Not Detected Ur Amphetamines Screen Not Detected U Benzodiazepines Scrn Not Detected Urine Cocaine Screen POSITIVE H U Marijuana (THC) Screen POSITIVE H Ethyl Alcohol < 10 10/19/23 10/19/23 11:48 13:50 WBC RBC Hgb Hct MCV MCH MCHC RDW Plt Count MPV Immature Gran % (Auto) Neut % (Auto) Lymph % (Auto) [place] % (Auto) Eos % (Auto) Baso % (Auto) Lymph # (Auto) [place] # (Auto) Eos # (Auto) Baso # (Auto) Abs Immat Gran (auto) Absolute Neuts (auto) Absolute Nucleated RBC Nucleated RBC % (auto) PT INR Sodium Potassium Chloride Carbon Dioxide Anion Gap BUN Creatinine Estim Creat Clear Calc Estimated GFR Random Glucose Calcium Magnesium Total Bilirubin Direct Bilirubin AST ALT Alkaline Phosphatase Troponin I High Sens < 2.7 Total Protein Albumin Lipase Beta HCG, Quant Urine Color Urine Appearance Urine pH Ur Specific [place] Urine Protein Urine Glucose (UA) Urine Ketones Urine Blood Urine Nitrite Ur Leukocyte Esterase Urine RBC Urine WBC Ur Squamous Epith Cells Calcium Oxalate Crystal Urine Bacteria Hyaline Casts Urine Opiates Screen POSITIVE H Urine Fentanyl Screen POSITIVE H Ur Barbiturates Screen Not Detected Ur Phencyclidine Scrn Not Detected Ur Amphetamines Screen Not Detected U Benzodiazepines Scrn Not Detected Urine Cocaine Screen POSITIVE H U Marijuana (THC) Screen POSITIVE H Ethyl Alcohol Imaging Radiology Impressions: ITS Impressions Abdomen Ultrasound 10/18/23 10:04 IMPRESSION: Mildly distended gallbladder demonstrating gallstones and a small amount of pericholecystic fluid. Acute cholecystitis is within the differential. Clinical correlation is recommended. HIDA imaging may be warranted. Abdomen/Pelvis CT 10/18/23 10:44 IMPRESSION: 1. Hepatosplenomegaly with periportal edema. 2. Gallbladder hydrops with cholelithiasis and pericholecystic fluid, suggestive for cholecystitis. 3. Constipation. 4. Pelvic congestion syndrome. Fleischner guidelines were followed. Hepatobiliary Scan Nuclear Medicine 10/19/23 11:30 IMPRESSION: Nonvisualization of the gallbladder is strongly suspicious for acute cholecystitis, but images could not be obtained for the usual full duration of the study because of the patient's inability to cooperate. The common bile duct is patent. Liver function appears normal. Mental Status Exam Mental Status Exam Patient Appearance: Appropriate Level of Consciousness: Awake and Restless Patient Behavior: Appropriate and Talkative Medications Medications Current Medications Acetaminophen (Acetaminophen 325 Mg Tablet) 650 mg PO Q6H PRN PRN Reason: Pain, Mild (Pain Scale 1-3) Hydromorphone HCl (Hydromorphone Hcl 1 Mg/Ml Syringe) 1 mg IVPUSH Q4H PRN; Protocol PRN Reason: Pain, Severe (Pain Scale 7-10) Last Admin: 10/19/23 14:46 Dose: 1 mg Dextrose/Lactated Ringer's (D5lr) 1,000 mls @ 80 mls/hr IVCONT .[id number] [facility] Last Infusion: 10/19/23 17:38 Dose: 0 mls/hr Piperacillin Sod/Tazobactam (Sod 3.375 gm/ Sodium Chloride) 50 mls @ 100 mls/hr IV Q6H [facility] Last Infusion: 10/19/23 15:43 Dose: Infused Methadone HCl (Methadone Hcl 20 Mg/2 Ml Oral.Conc) 60 mg PO DAILY [facility] Ondansetron HCl (Ondansetron Hcl 4 Mg/2 Ml Vial) 4 mg IVPUSH Q8H PRN PRN Reason: Nausea and Vomiting Senna (Sennosides 8.6 Mg Tablet) 17.2 mg PO BEDTIME PRN PRN Reason: Constipation Sodium Chloride (0.9 % Sodium Chloride Flush 3 Ml Syringe) 3 ml IVFLUSH QSHIFT [facility] Last Admin: 10/19/23 17:18 Dose: Not Given Allergies Allergies Allergy/AdvReac Type Severity Reaction Status Date / Time No Known Allergies Allergy Verified 10/18/23 08:47 [No Known Allergies*] Assessment & Plan Assessment & Plan (1) Opioid use disorder: Status: Acute Code(s): F11.90 - Opioid use, unspecified, uncomplicated Assessment and Plan: * methadone 30mg ordered following patient interview and request for RN to verify dose. * Dose was later verified (60mg QD, with last dose given on 10/14 and one take home bottle) * additional 20mg ordered for total of 50mg today (methadone) * tomorrow (10/20) back to outpatient dose of 60mg QD * corrosion control technician to check in over the weekend Total time managing care of this patient today __35__ minutes. PMFSH Past Medical History Medical History IV drug abuse Social History Social History Alcohol intake: never Patient Tobacco Use Status: Never used Tobacco Substance Use Type: Heroin Currently Displaying Signs/Symptoms of Drug Intoxication Withdrawal: No Advance Directives: No
[2023-10-20] MEDS: Piperacillin Sodium/Tazobactam 3.375 GM in 0.9 % Sodium Chloride 50 ML IV ×4 (01:52→19:23)
[2023-10-20] MEDS: HYDROmorphone HCl 1 MG/ML SYRINGE IVPUSH ×6 (02:40→23:35)
[2023-10-20 02:48] VITALS: BP 156/83; PULSE 68; RESP 18; TEMP 37; O2SAT 96
[2023-10-20 07:09] VITALS: BP 141/91; PULSE 55; RESP 18; TEMP 37.1; O2SAT 97
[2023-10-20 07:27] LABS: Hematocrit 39.6 % (37.0-47.0); Hemoglobin 13.3 g/dl (12.0-16.0); Mean Corpuscular HGB Conc 33.6 g/dl (31.0-35.0); Mean Corpuscular Hemoglobin 28.3 pg (27.0-33.0); Mean Corpuscular Volume 84.3 fL (80.0-98.0); Platelet Count 304 X10*3/uL (160-400); White Blood Count 14.1 X10*3/uL (4.8-10.8)
[2023-10-20 07:37] LABS: Alanine Aminotransferase 15 U/L (0-31); Albumin Level 3.3 g/dL (3.5-5.0); Alkaline Phosphatase 56 U/L (39-117); Anion Gap 12 (12-20); Aspartate Amino Transferase 15 U/L (5-31); Bilirubin Direct 0.3 mg/dL (0.0-0.5); Bilirubin Total 0.7 mg/dL (0.0-1.0); Blood Urea Nitrogen 7 mg/dL (9-16); Calcium 8.8 mg/dL (8.4-10.2); Carbon Dioxide 22 mmol/L (22-29); Chloride 107 mmol/L (96-108); Estimated Glomerular Filt Rate > 60; Glucose Random 139 mg/dL (60-115); Potassium 3.6 mmol/L (3.3-5.1); Sodium 137 mmol/L (135-145); Total Protein 7.1 g/dL (6.5-8.0)
[2023-10-20] MEDS: 0.9 % Sodium Chloride Flush 3 ML SYRINGE IVFLUSH ×2 (09:50→15:10)
[2023-10-20] MEDS: methADONE HCl 20 MG/2 ML ORAL.CONC 60 MG PO (09:54)
[2023-10-20] MEDS: Dextrose 5 % and Lactated Ring 1,000 ML 80 ML IVCONT (09:57)
--- NOTE | 2023-10-20 10:20 | HO.PM.IMPN ---
Subjective Subjective Date of Service: 10/20/23 Interval History: Patient awake alert complaining of pain right upper quadrant denies generalized pain, denies withdrawal symptoms denies fever, no chills, no diarrhea. Review of Systems All other system reviewed and negative Physical Exam Vital Signs: Vital Signs: Last Vital Signs Temp 98.7 F 10/20/23 07:09 Pulse 55 10/20/23 07:09 Resp 18 10/20/23 07:09 BP 141/91 H 10/20/23 07:09 Pulse Ox 97 10/20/23 07:09 O2 Del Method Room Air 10/20/23 07:09 BMI result Body Mass Index 20.6 Appearing in no acute distress lung sounds are clear to auscultation heart regular rate rhythm, clear S1, S2 positive bowel sounds, abdomen is soft, RUQ pain neuro patient is alert x3, no focal deficits Objective Data Active Medications Acetaminophen (Acetaminophen 325 Mg Tablet) 650 mg PO Q6H PRN PRN Reason: Pain, Mild (Pain Scale 1-3) Hydromorphone HCl (Hydromorphone Hcl 1 Mg/Ml Syringe) 1 mg IVPUSH Q4H PRN; Protocol PRN Reason: Pain, Severe (Pain Scale 7-10) Last Admin: 10/20/23 06:37 Dose: 1 mg Documented By: FLAVIO Dextrose/Lactated Ringer's (D5lr) 1,000 mls @ 80 mls/hr IVCONT .[id number] [facility] Last Infusion: 10/20/23 09:57 Dose: 0 mls/hr Documented By: MARC Piperacillin Sod/Tazobactam (Sod 3.375 gm/ Sodium Chloride) 50 mls @ 100 mls/hr IV Q6H [facility] Last Admin: 10/20/23 09:50 Dose: 100 mls/hr Documented By: MARC Methadone HCl (Methadone Hcl 20 Mg/2 Ml Oral.Conc) 60 mg PO DAILY [facility] Last Admin: 10/20/23 09:54 Dose: 60 mg Documented By: MARC Ondansetron HCl (Ondansetron Hcl 4 Mg/2 Ml Vial) 4 mg IVPUSH Q8H PRN PRN Reason: Nausea and Vomiting Senna (Sennosides 8.6 Mg Tablet) 17.2 mg PO BEDTIME PRN PRN Reason: Constipation Sodium Chloride (0.9 % Sodium Chloride Flush 3 Ml Syringe) 3 ml IVFLUSH QSHIFT [facility] Last Admin: 10/20/23 09:50 Dose: 3 ml Documented By: MARC Labs 10/20/23 07:04 10/20/23 07:04 Labs: Laboratory Results - last 24 hr 10/19/23 10/20/23 13:50 07:04 MCV 84.3 MCH 28.3 MCHC 33.6 RDW 14.0 Plt Count 304 MPV 10.0 Absolute Nucleated RBC 0.000 Nucleated RBC % (auto) 0.0 Anion Gap 12 Estim Creat Clear Calc 119.0 Estimated GFR > 60 Random Glucose 139 H Calcium 8.8 D Total Bilirubin 0.7 Direct Bilirubin 0.3 AST 15 ALT 15 Alkaline Phosphatase 56 Total Protein 7.1 Albumin 3.3 L Urine Opiates Screen POSITIVE H Urine Fentanyl Screen POSITIVE H Ur Barbiturates Screen Not Detected Ur Phencyclidine Scrn Not Detected Ur Amphetamines Screen Not Detected U Benzodiazepines Scrn Not Detected Urine Cocaine Screen POSITIVE H U Marijuana (THC) Screen POSITIVE H Microbiology Microbiology Results: Microbiology 10/18/23 15:52 Urine Culture - Final Urine clean catch - Urine [place] top Escherichia coli Assessment and Plan (1) Nausea & vomiting: Status: Acute (2) Cholecystitis: Status: Acute Plan 28-year-old female with history of IV drug abuse to be observed for acute cholecystitis Acute cholecystitis persistent right upper quadrant abdominal pain, no fevers, WBC bumped to 16.5, LFTs normal abd u/s and ct abd/pelvis shows cholecystitis with gallbladder hydrops and cholelithiasis continue pain management , antiemetics,clear diet, IV fluids Gen surgery>plan for surgery sunday Hx IVDa urine tox screen positive for thc, cocaine, fentanyl, opiates, denies IV drug use addiction med consult>started on methadone No withdrawals at this time Bradycardia chronic, asymptomatic, stable, NO AV roshan blocks. Monitor DVT prophylaxis- scps Attending Dr. Wells Full code Continue hospitalization for treatment of acute cholecystitis requiring surgery which will take place on Sunday Quality Stroke Does the patient have a stroke diagnosis?: No VTE Prior VTE?: No VTE Risk Level:: Medical - moderate - high VTE Device Contraindication: N/A - Device Ordered VTE Drug Contraindication: Treatment Not Indicated
--- NOTE | 2023-10-20 10:26 | P.PNGS_ITS ---
Subjective Subjective Date of Service: 10/20/23 Interval history: was scheduled for cholecystectomy yesterday cancelled due to opioid use, withdrawals still with pain Physical Exam 2 Vital Signs: Vital Signs: Last Vital Signs Temp 98.7 F 10/20/23 07:09 Pulse 55 10/20/23 07:09 Resp 18 10/20/23 07:09 BP 141/91 H 10/20/23 07:09 Pulse Ox 97 10/20/23 07:09 O2 Del Method Room Air 10/20/23 07:09 BMI result Body Mass Index 20.6 Const: Other: appears more alert today Resp: Effort & Inspection: normal respiratory effort Cardio: Rate: regular rate GI: Other: tender on RUQ Objective Data Active Medications Acetaminophen (Acetaminophen 325 Mg Tablet) 650 mg PO Q6H PRN PRN Reason: Pain, Mild (Pain Scale 1-3) Hydromorphone HCl (Hydromorphone Hcl 1 Mg/Ml Syringe) 1 mg IVPUSH Q4H PRN; Protocol PRN Reason: Pain, Severe (Pain Scale 7-10) Last Admin: 10/20/23 06:37 Dose: 1 mg Documented By: FLAVIO Dextrose/Lactated Ringer's (D5lr) 1,000 mls @ 80 mls/hr IVCONT .[id number] [facility] Last Infusion: 10/20/23 09:57 Dose: 0 mls/hr Documented By: MARC Piperacillin Sod/Tazobactam (Sod 3.375 gm/ Sodium Chloride) 50 mls @ 100 mls/hr IV Q6H [facility] Last Admin: 10/20/23 09:50 Dose: 100 mls/hr Documented By: MARC Methadone HCl (Methadone Hcl 20 Mg/2 Ml Oral.Conc) 60 mg PO DAILY [facility] Last Admin: 10/20/23 09:54 Dose: 60 mg Documented By: MARC Ondansetron HCl (Ondansetron Hcl 4 Mg/2 Ml Vial) 4 mg IVPUSH Q8H PRN PRN Reason: Nausea and Vomiting Senna (Sennosides 8.6 Mg Tablet) 17.2 mg PO BEDTIME PRN PRN Reason: Constipation Sodium Chloride (0.9 % Sodium Chloride Flush 3 Ml Syringe) 3 ml IVFLUSH QSHIFT [facility] Last Admin: 10/20/23 09:50 Dose: 3 ml Documented By: MARC Labs 10/20/23 07:04 10/20/23 07:04 Labs: Laboratory Results - last 24 hr 10/19/23 10/20/23 13:50 07:04 MCV 84.3 MCH 28.3 MCHC 33.6 RDW 14.0 Plt Count 304 MPV 10.0 Absolute Nucleated RBC 0.000 Nucleated RBC % (auto) 0.0 Anion Gap 12 Estim Creat Clear Calc 119.0 Estimated GFR > 60 Random Glucose 139 H Calcium 8.8 D Total Bilirubin 0.7 Direct Bilirubin 0.3 AST 15 ALT 15 Alkaline Phosphatase 56 Total Protein 7.1 Albumin 3.3 L Urine Opiates Screen POSITIVE H Urine Fentanyl Screen POSITIVE H Ur Barbiturates Screen Not Detected Ur Phencyclidine Scrn Not Detected Ur Amphetamines Screen Not Detected U Benzodiazepines Scrn Not Detected Urine Cocaine Screen POSITIVE H U Marijuana (THC) Screen POSITIVE H Microbiology Microbiology Results: Microbiology 10/18/23 15:52 Urine Culture - Final Urine clean catch - Urine [place] Escherichia coli Procedures Date of Service Date of Service: 10/20/23 Progress Note: A&P Assessment and plan (1) Cholecystitis: Status: Acute Assessment and Plan: with opioid abuse disorder still with pain pain mgt challenging in view of opioid history plan for cholecystectomy on Sunday IV abx Time Spent With Patient Time: Total time managing care of this patient today ____ minutes. Quality Stroke Does the patient have a stroke diagnosis?: No VTE Prior VTE?: No VTE Risk Level:: Medical - moderate - high VTE Device Contraindication: N/A - Device Ordered VTE Drug Contraindication: Treatment Not Indicated
[2023-10-20 11:13] VITALS: BP 133/86; PULSE 52; RESP 18; TEMP 36.7; O2SAT 97
--- NOTE | 2023-10-20 11:30 | MHC.CM.PN ---
Patient is from home w/ father. Independent. No services or equipment. No PCP. No HCP. CM provided education and offered assistance, encourage to fill out prior to surgery, patient declined. Methadone from [facility]. DP: Scheduled for OR on 10/22. Goal is home self care. Will need Lyft. CM will continue to follow.
[2023-10-20 15:23] VITALS: BP 109/68; PULSE 47; RESP 18; TEMP 36.7; O2SAT 97
--- NOTE | 2023-10-20 16:38 | MHC.RECOVRN ---
Briefly met with pt to check in after receiving 60 mg methadone this morning. Pt laying in bed, asleep, wakes to voice but does not open eyes. Pt denies withdrawal symptoms, reports feeling okay. Denies questions or concerns for t/w.
[2023-10-20 19:16] VITALS: BP 129/88; PULSE 65; RESP 18; TEMP 36.6; O2SAT 99
[2023-10-20 23:21] VITALS: BP 125/85; PULSE 54; RESP 18; TEMP 36.4; O2SAT 99
[2023-10-21] VITALS (8 sets, daily range): BP systolic 93–144; BP diastolic 58–91; PULSE 44–62; RESP 15–18; TEMP 36.1–37.1; O2SAT 96–100
[2023-10-21] MEDS: Piperacillin Sodium/Tazobactam 3.375 GM in 0.9 % Sodium Chloride 50 ML IV ×4 (02:10→20:57)
[2023-10-21] MEDS: HYDROmorphone HCl 1 MG/ML SYRINGE IVPUSH ×4 (03:26→20:53)
[2023-10-21] MEDS: methADONE HCl 20 MG/2 ML ORAL.CONC 60 MG PO (08:47)
[2023-10-21] MEDS: 0.9 % Sodium Chloride Flush 3 ML SYRINGE IVFLUSH ×2 (08:53→21:10)
--- NOTE | 2023-10-21 09:22 | HO.PM.IMPN ---
Subjective Subjective Date of Service: 10/21/23 Interval History: Patient awake alert complaining of pain right upper quadrant denies generalized pain, denies withdrawal symptoms denies fever, no chills, no diarrhea. Review of Systems All other system reviewed and negative Physical Exam Vital Signs: Vital Signs: Last Vital Signs Temp 97 F 10/21/23 08:00 Pulse 58 10/21/23 08:56 Resp 17 10/21/23 08:56 BP 128/76 10/21/23 08:00 Pulse Ox 99 10/21/23 08:00 O2 Del Method Room Air 10/21/23 08:00 BMI result Body Mass Index 20.6 Appearing in no acute distress lung sounds are clear to auscultation heart regular rate rhythm, clear S1, S2 positive bowel sounds, abdomen is soft, nontender neuro patient is alert x3, no focal deficits Objective Data Active Medications Acetaminophen (Acetaminophen 325 Mg Tablet) 650 mg PO Q6H PRN PRN Reason: Pain, Mild (Pain Scale 1-3) Hydromorphone HCl (Hydromorphone Hcl 1 Mg/Ml Syringe) 1 mg IVPUSH Q4H PRN; Protocol PRN Reason: Pain, Severe (Pain Scale 7-10) Last Admin: 10/21/23 08:47 Dose: 1 mg Documented By: MARC Piperacillin Sod/Tazobactam (Sod 3.375 gm/ Sodium Chloride) 50 mls @ 100 mls/hr IV Q6H [facility] Last Admin: 10/21/23 08:50 Dose: 100 mls/hr Documented By: MARC Methadone HCl (Methadone Hcl 20 Mg/2 Ml Oral.Conc) 60 mg PO DAILY [facility] Last Admin: 10/21/23 08:47 Dose: 60 mg Documented By: MARC Ondansetron HCl (Ondansetron Hcl 4 Mg/2 Ml Vial) 4 mg IVPUSH Q8H PRN PRN Reason: Nausea and Vomiting Senna (Sennosides 8.6 Mg Tablet) 17.2 mg PO BEDTIME PRN PRN Reason: Constipation Sodium Chloride (0.9 % Sodium Chloride Flush 3 Ml Syringe) 3 ml IVFLUSH QSHIFT [facility] Last Admin: 10/21/23 08:53 Dose: 3 ml Documented By: MARC Labs 10/20/23 07:04 10/20/23 07:04 Microbiology Microbiology Results: Microbiology 10/18/23 15:52 Urine Culture - Final Urine clean catch - Urine [place] Escherichia coli Assessment and Plan (1) Nausea & vomiting: Status: Acute (2) Cholecystitis: Status: Acute Plan 28-year-old female with history of IV drug abuse to be observed for acute cholecystitis Acute cholecystitis persistent right upper quadrant abdominal pain, no fevers, LFTs normal abd u/s and ct abd/pelvis shows cholecystitis with gallbladder hydrops and cholelithiasis continue pain management , antiemetics, clear diet, IV fluids Gen surgery>plan for surgery sunday Hx IVDa urine tox screen positive for thc, cocaine, fentanyl, opiates, denies IV drug use addiction med consult>started on methadone No withdrawals at this time Bradycardia chronic, asymptomatic, stable, NO AV roshan blocks. Monitor DVT prophylaxis- scps Attending Dr. Wells Full code Continue hospitalization for treatment of acute cholecystitis requiring surgery which will take place on Sunday Quality Stroke Does the patient have a stroke diagnosis?: No VTE Prior VTE?: No VTE Risk Level:: Medical - moderate - high VTE Device Contraindication: N/A - Device Ordered VTE Drug Contraindication: Treatment Not Indicated
--- NOTE | 2023-10-21 11:55 | PM.EVENT ---
Event Note Date of Service: 10/23/23 Event Note: she looks more alert ambulating says she feels much more comfortable does admit to some residual right sided pain and tenderness I informed her of plan for cholecystectomy tomorrow she says she understands Time Spent With Patient Time: Total time managing care of this patient today ____ minutes.
[2023-10-22] VITALS (13 sets, daily range): BP systolic 111–144; BP diastolic 70–98; PULSE 50–78; RESP 8–18; TEMP 36.3–37.4; O2SAT 96–100
[2023-10-22] MEDS: Piperacillin Sodium/Tazobactam 3.375 GM in 0.9 % Sodium Chloride 50 ML IV ×4 (00:36→20:21)
[2023-10-22] MEDS: HYDROmorphone HCl 1 MG/ML SYRINGE IVPUSH ×2 (00:36→04:28)
[2023-10-22] MEDS: methADONE HCl 20 MG/2 ML ORAL.CONC 60 MG PO (07:46)
[2023-10-22] MEDS: 0.9 % Sodium Chloride Flush 3 ML SYRINGE IVFLUSH ×3 (07:47→20:22)
--- NOTE | 2023-10-22 08:37 | HO.ANESPROP2 ---
HPI - Anesthesia Eval Consult details Narrative: 28 yo F admitted with cholecystitis. Hx of polysubstance abuse - last use 10/18. Was in withdrawal, now started on methadone. PMF Active Problems Active Problems: All Active Problems (Updated 10/19/23 @ 17:56 by Jennifer Delgado CNP) Opioid use disorder (Acute) Nausea & vomiting (Acute) Cholecystitis (Acute) Past Medical History Medical History IV drug abuse Family History Family history of problems with anesthesia: No Surgical History History of Problems with Anesthesia: No Social History Social History Alcohol intake: never Patient Tobacco Use Status: Never used Tobacco Substance Use Type: Heroin Currently Displaying Signs/Symptoms of Drug Intoxication Withdrawal: No Advance Directives: No service: No Meds Allergies Allergy/AdvReac Type Severity Reaction Status Date / Time No Known Allergies Allergy Verified 10/18/23 08:47 [No Known Allergies*] Active Medications: Current Medications Acetaminophen (Acetaminophen 325 Mg Tablet) 650 mg PO Q6H PRN PRN Reason: Pain, Mild (Pain Scale 1-3) Hydromorphone HCl (Hydromorphone Hcl 1 Mg/Ml Syringe) 1 mg IVPUSH Q4H PRN; Protocol PRN Reason: Pain, Severe (Pain Scale 7-10) Last Admin: 10/22/23 04:28 Dose: 1 mg Piperacillin Sod/Tazobactam (Sod 3.375 gm/ Sodium Chloride) 50 mls @ 100 mls/hr IV Q6H [facility] Last Infusion: 10/22/23 08:23 Dose: Infused Methadone HCl (Methadone Hcl 20 Mg/2 Ml Oral.Conc) 60 mg PO DAILY [facility] Last Admin: 10/22/23 07:46 Dose: 60 mg Ondansetron HCl (Ondansetron Hcl 4 Mg/2 Ml Vial) 4 mg IVPUSH Q8H PRN PRN Reason: Nausea and Vomiting Senna (Sennosides 8.6 Mg Tablet) 17.2 mg PO BEDTIME PRN PRN Reason: Constipation Sodium Chloride (0.9 % Sodium Chloride Flush 3 Ml Syringe) 3 ml IVFLUSH QSHIFT [facility] Last Admin: 10/22/23 07:47 Dose: 3 ml Home Medications Medication Instructions Recorded Confirmed Last Taken Type No Known Home Meds 10/18/23 10/18/23 Unknown History Exam Exam Date and Time: October 22, 2023 0835 Height,Weight and Vital Signs: Height 5 ft 4 in Weight 54.431 kg Last Vital Signs Temp 97.9 F 10/22/23 07:25 Pulse 61 10/22/23 07:25 Resp 16 10/22/23 07:25 BP 125/92 H 10/22/23 07:25 Pulse Ox 98 10/22/23 07:25 O2 Del Method Room Air 10/22/23 07:25 Pertinent Lab Results Pertinent Lab Results: Laboratory Tests 10/18/23 10/18/23 10/19/23 09:27 15:31 05:06 WBC 10.2 16.5 H RBC 4.57 4.94 Hgb 12.6 13.7 Hct 39.0 42.0 MCV 85.3 85.0 MCH 27.6 27.7 MCHC 32.3 32.6 RDW 14.2 14.2 Plt Count 266 325 MPV 9.9 10.2 Immature Gran % (Auto) 0.2 0.7 H Neut % (Auto) 66.0 84.6 H Lymph % (Auto) 23.7 9.0 L [place] % (Auto) 5.9 5.5 Eos % (Auto) 3.8 0.0 Baso % (Auto) 0.4 0.2 Lymph # (Auto) 2.4 1.5 [place] # (Auto) 0.6 0.9 Eos # (Auto) 0.4 0.0 Baso # (Auto) 0.0 0.0 Abs Immat Gran (auto) 0.02 0.12 H Absolute Neuts (auto) 6.7 14.0 H Absolute Nucleated RBC 0.000 0.000 Nucleated RBC % (auto) 0.0 0.0 PT 11.5 INR 0.9 Sodium 140 138 Potassium 4.6 4.0 Chloride 109 H 104 Carbon Dioxide 22 22 Anion Gap 14 16 BUN 10 8 L Creatinine 0.80 0.66 Estim Creat Clear Calc 90.7 110.0 Estimated GFR > 60 > 60 Random Glucose 106 120 H Calcium 9.3 D 9.4 Magnesium 2.1 Total Bilirubin 0.3 0.7 Direct Bilirubin 0.3 AST 30 24 ALT 19 23 Alkaline Phosphatase 56 68 Troponin I High Sens Total Protein 8.1 H 7.8 Albumin 3.9 3.8 Lipase 13 Beta HCG, Quant < 2 Urine Color Yellow Urine Appearance Clear Urine pH 5.5 Ur Specific [place] >= 1.030 H Urine Protein 30 (1+) H Urine Glucose (UA) Negative Urine Ketones 15 Urine Blood Trace H Urine Nitrite Negative Ur Leukocyte Esterase Negative Urine RBC 0-2 Urine WBC 6-10 H Ur Squamous Epith Cells 11-20 Calcium Oxalate Crystal Present Urine Bacteria 4+ Hyaline Casts 0-2 Urine Opiates Screen POSITIVE H Urine Fentanyl Screen POSITIVE H Ur Barbiturates Screen Not Detected Ur Phencyclidine Scrn Not Detected Ur Amphetamines Screen Not Detected U Benzodiazepines Scrn Not Detected Urine Cocaine Screen POSITIVE H U Marijuana (THC) Screen POSITIVE H Ethyl Alcohol < 10 10/19/23 10/19/23 10/20/23 11:48 13:50 07:04 WBC 14.1 H RBC 4.70 Hgb 13.3 Hct 39.6 MCV 84.3 MCH 28.3 MCHC 33.6 RDW 14.0 Plt Count 304 MPV 10.0 Immature Gran % (Auto) Neut % (Auto) Lymph % (Auto) [place] % (Auto) Eos % (Auto) Baso % (Auto) Lymph # (Auto) [place] # (Auto) Eos # (Auto) Baso # (Auto) Abs Immat Gran (auto) Absolute Neuts (auto) Absolute Nucleated RBC 0.000 Nucleated RBC % (auto) 0.0 PT INR Sodium 137 Potassium 3.6 Chloride 107 Carbon Dioxide 22 Anion Gap 12 BUN 7 L Creatinine 0.61 Estim Creat Clear Calc 119.0 Estimated GFR > 60 Random Glucose 139 H Calcium 8.8 D Magnesium Total Bilirubin 0.7 Direct Bilirubin 0.3 AST 15 ALT 15 Alkaline Phosphatase 56 Troponin I High Sens < 2.7 Total Protein 7.1 Albumin 3.3 L Lipase Beta HCG, Quant Urine Color Urine Appearance Urine pH Ur Specific [place] Urine Protein Urine Glucose (UA) Urine Ketones Urine Blood Urine Nitrite Ur Leukocyte Esterase Urine RBC Urine WBC Ur Squamous Epith Cells Calcium Oxalate Crystal Urine Bacteria Hyaline Casts Urine Opiates Screen POSITIVE H Urine Fentanyl Screen POSITIVE H Ur Barbiturates Screen Not Detected Ur Phencyclidine Scrn Not Detected Ur Amphetamines Screen Not Detected U Benzodiazepines Scrn Not Detected Urine Cocaine Screen POSITIVE H U Marijuana (THC) Screen POSITIVE H Ethyl Alcohol Airway Mallampati Class: I TM Dist: >3cm Neck ROM: Full Loose/Missing/Broken Teeth: No Heart: S1S2 Lungs: CTAB Assessment and Plan Assessment Anesthesia Assessment: Anesthesia Plan Discussed and Chart Reviewed Final Anesthetic Review Family History of Problems with Anesthesia: No History of Problems with Anesthesia: No NPO: Yes ASA Class: III Final Preanesthetic Review: No Changes in Pt Med Stat, Meds/Allgs Chart Reviewed, Consent Obtained/Reviewed and Anes Risks/Benef Reviewed Patient Risk: Intermediate Procedure Risk: Low Anesthetic Plan Anesthetic Plan: GA and Agree w/ Assess. and Plan Disposition: Standard PACU
--- NOTE | 2023-10-22 08:44 | P.PNGS_ITS ---
Subjective Subjective Date of Service: 10/22/23 Interval history: Overall patient feels improved this morning. She reports being very hungry. Abdominal pain is improved but not gone. Physical Exam 2 Vital Signs: Vital Signs: Last Vital Signs Temp 97.9 F 10/22/23 07:25 Pulse 61 10/22/23 07:25 Resp 16 10/22/23 07:25 BP 125/92 H 10/22/23 07:25 Pulse Ox 98 10/22/23 07:25 O2 Del Method Room Air 10/22/23 07:25 BMI result Body Mass Index 20.6 Const: General: comfortable Nutritional Appearance: well nourished O rientation/consciousness: patient oriented x3 Limitations: no limitations Resp: Effort & Inspection: normal respiratory effort GI: Inspection: Yes normal to inspection Palpation (GI): Soft to palpation, Tenderness to palpation present (GI) in the RUQ; Edmonds's sign negative, no guarding and not rigid Neuro: General: patient oriented x3 Extrem: General: Yes no clubbing, cyanosis or edema Objective Data Active Medications Acetaminophen (Acetaminophen 325 Mg Tablet) 650 mg PO Q6H PRN PRN Reason: Pain, Mild (Pain Scale 1-3) Hydromorphone HCl (Hydromorphone Hcl 1 Mg/Ml Syringe) 1 mg IVPUSH Q4H PRN; Protocol PRN Reason: Pain, Severe (Pain Scale 7-10) Last Admin: 10/22/23 04:28 Dose: 1 mg Documented By: TAMEKA Piperacillin Sod/Tazobactam (Sod 3.375 gm/ Sodium Chloride) 50 mls @ 100 mls/hr IV Q6H [facility] Last Infusion: 10/22/23 08:23 Dose: Infused Documented By: ARIS Methadone HCl (Methadone Hcl 20 Mg/2 Ml Oral.Conc) 60 mg PO DAILY [facility] Last Admin: 10/22/23 07:46 Dose: 60 mg Documented By: ARIS Comments: give now prior to surgery per OR Ondansetron HCl (Ondansetron Hcl 4 Mg/2 Ml Vial) 4 mg IVPUSH Q8H PRN PRN Reason: Nausea and Vomiting Senna (Sennosides 8.6 Mg Tablet) 17.2 mg PO BEDTIME PRN PRN Reason: Constipation Sodium Chloride (0.9 % Sodium Chloride Flush 3 Ml Syringe) 3 ml IVFLUSH QSHIFT [facility] Last Admin: 10/22/23 07:47 Dose: 3 ml Documented By: ARIS Waldron 10/20/23 07:04 10/20/23 07:04 Procedures Date of Service Date of Service: 10/22/23 Progress Note: A&P Assessment and plan (1) Cholecystitis: Status: Acute (2) Opioid use disorder: Status: Acute Plan 28-year-old female patient polysubstance abuse presenting with complaints of right upper quadrant abdominal pain, found to have acute cholecystitis due to cholelithiasis. Workup with ultrasound and CT confirmed gallstones with evidence of acute changes. HIDA scan is also positive for nonvisualization of the gallbladder. I recommended a laparoscopic or possible open cholecystectomy. After discussion of the procedure, risks, and alternatives, she consents to the procedure. Time Spent With Patient Time: Total time managing care of this patient today ____ minutes. Quality Stroke Does the patient have a stroke diagnosis?: No VTE Prior VTE?: No VTE Risk Level:: Medical - moderate - high VTE Device Contraindication: N/A - Device Ordered VTE Drug Contraindication: Treatment Not Indicated
--- NOTE | 2023-10-22 08:44 | MHC.SHP ---
Pre-Procedural Eval Section A Date of Service: 10/22/23 The patient is an INPATIENT: Yes Section B Chief Complaint: RUQ pain Allergies: Allergies Allergy/AdvReac Type Severity Reaction Status Date / Time No Known Allergies Allergy Verified 10/18/23 08:47 [No Known Allergies*] Plan Diagnosis/Plan: Unchanged I have reviewed the history and physical and performed a pertinent physical examination on my patient. No changes have occurred unless specified. Time Spent With Patient Time: Total time managing care of this patient today ____ minutes.
--- NOTE | 2023-10-22 09:30 | HO.PM.IMPN ---
Subjective Subjective Date of Service: 10/22/23 Interval History: Patient awake alert complaining of pain right upper quadrant denies generalized pain, denies withdrawal symptoms denies fever, no chills, no diarrhea. Review of Systems All other system reviewed and negative Physical Exam Vital Signs: Vital Signs: Last Vital Signs Temp 99.0 F 10/22/23 08:46 Pulse 70 10/22/23 08:46 Resp 16 10/22/23 08:46 BP 111/86 10/22/23 08:46 Pulse Ox 97 10/22/23 08:46 O2 Del Method Room Air 10/22/23 08:46 BMI result Body Mass Index 20.6 Appearing in no acute distress lung sounds are clear to auscultation heart regular rate rhythm, clear S1, S2 positive bowel sounds, abdomen is soft, nontender neuro patient is alert x3, no focal deficits Objective Data Active Medications Acetaminophen (Acetaminophen 325 Mg Tablet) 650 mg PO Q6H PRN PRN Reason: Pain, Mild (Pain Scale 1-3) Hydromorphone HCl (Hydromorphone Hcl 1 Mg/Ml Syringe) 1 mg IVPUSH Q4H PRN; Protocol PRN Reason: Pain, Severe (Pain Scale 7-10) Last Admin: 10/22/23 04:28 Dose: 1 mg Documented By: TAMEKA Hydromorphone HCl (Hydromorphone Hcl 0.5 Mg/0.5 Ml Syringe) 0.5 mg IVPUSH Q5M PRN; Protocol PRN Reason: Pain, Severe (Pain Scale 7-10) Piperacillin Sod/Tazobactam (Sod 3.375 gm/ Sodium Chloride) 50 mls @ 100 mls/hr IV Q6H [facility] Last Infusion: 10/22/23 08:23 Dose: Infused Documented By: ARIS Promethazine HCl 12.5 mg/ (Sodium Chloride) 50.5 mls @ 202 mls/hr IV ONCE PRN PRN Reason: Nausea and Vomiting Methadone HCl (Methadone Hcl 20 Mg/2 Ml Oral.Conc) 60 mg PO DAILY [facility] Last Admin: 10/22/23 07:46 Dose: 60 mg Documented By: ARIS Comments: give now prior to surgery per OR Ondansetron HCl (Ondansetron Hcl 4 Mg/2 Ml Vial) 4 mg IVPUSH Q8H PRN PRN Reason: Nausea and Vomiting Senna (Sennosides 8.6 Mg Tablet) 17.2 mg PO BEDTIME PRN PRN Reason: Constipation Sodium Chloride (0.9 % Sodium Chloride Flush 3 Ml Syringe) 3 ml IVFLUSH QSHIFT [facility] Last Admin: 10/22/23 07:47 Dose: 3 ml Documented By: ARIS Labs 10/20/23 07:04 10/20/23 07:04 Assessment and Plan (1) Nausea & vomiting: Status: Acute (2) Cholecystitis: Status: Acute Plan 28-year-old female with history of IV drug abuse to be observed for acute cholecystitis Acute cholecystitis persistent right upper quadrant abdominal pain, no fevers, LFTs normal abd u/s and ct abd/pelvis shows cholecystitis with gallbladder hydrops and cholelithiasis continue pain management , antiemetics, npo, IV fluids Gen surgery>down to OR for CCY Hx IVDa urine tox screen positive for thc, cocaine, fentanyl, opiates, denies IV drug use addiction med consult>started on methadone No withdrawals at this time Bradycardia chronic, asymptomatic, stable, NO AV roshan blocks. Monitor DVT prophylaxis- scps Attending Dr. Wells Full code Continue hospitalization for treatment of acute cholecystitis requiring surgery which will take place on Sunday Quality Stroke Does the patient have a stroke diagnosis?: No VTE Prior VTE?: No VTE Risk Level:: Medical - moderate - high VTE Device Contraindication: N/A - Device Ordered VTE Drug Contraindication: Treatment Not Indicated
--- NOTE | 2023-10-22 12:18 | W.PM.OPN ---
Operative Note Operative Note Date of Service: 10/22/23 Narrative: Preoperative diagnosis: Acute cholecystitis due to cholelithiasis Postoperative diagnosis: Same Procedure: Laparoscopic cholecystectomy Surgeon: Nolberto Frost MD Cast Associate: RASHAWN [place] Anesthesia: General endotracheal Indications for procedure: 28-year-old female patient with history of polysubstance abuse presenting with complaints of abdominal pain in the right upper quadrant found on workup acute cholecystitis due to cholelithiasis. Operative findings: Acutely inflamed gallbladder with thick wall enlarged gallstone Specimen: gallbladder Estimated blood loss: 20 mL Complications: None Procedure details: Patient was brought to the OR and placed in a supine position. After administering general anesthesia the patient's abdomen was prepped with ChloraPrep and draped in a sterile fashion. A surgical time-out was called the consent confirmed. Patient received preoperative antibiotics and Venodyne boots were in place. Local anesthesia consisting of 0.5% Sensorcaine without epinephrine was infiltrated in a periumbilical region. A 5 mm incision was made above the umbilicus in a transverse fashion. The Veress needle was then inserted while elevating abdominal cavity with towel clips. After positive drop test the abdomen was insufflated to a pressure of 15 mm of mercury. The Veress needle was then removed and a 5 mm trocar inserted. The camera was inserted in the abdomen explored. A 12 mm trocar was then placed in the epigastrium. Two 5 mm trocars placed in the right upper quadrant by the occupational therapist's assistant. The patient was placed in reverse Trendelenburg positioning and rotated to the left. The gallbladder was grasped with the fundus and retracted cephalad by the occupational therapist's assistant. The infundibulum was then grasped and retracted away from the liver bed, also by the occupational therapist's assistant. The Dolphin dissected was then used by the surgeon to dissect the peritoneum off the infundibulum to reveal the junction with the cystic duct. Cystic artery was noted slightly medial and posterior to the cystic duct. After obtaining a critical view the cystic duct was doubly clipped and divided. The cystic artery was then doubly clipped and divided. The gallbladder was then dissected off the liver bed using electrocautery with an L hook. Hemostasis was assured all times using the electrocautery. When the gallbladder is completely dissected off the liver bed was placed in an Endo-Catch bag and brought out through the epigastric incision. The gallbladder was sent to pathology for further examination. The abdomen was then re-examined. Surgicel was applied to the liver edge. The liver bed was irrigated and suctioned dry. No bleeding or bile leak could be identified. CO2 was then evacuated and all trocars removed. Fascia was closed at the epigastric incision using a [id number] 0 Polysorb suture. Skin was closed in all incisions using a subcuticular 4 0 Polysorb suture by both the surgeon and occupational therapist's assistant. Sterile dressings consisting of Steri-Strips, 2 x 2 gauze, and Tegaderm were then applied. The patient tolerated the procedure well. Sponge instrument and needle counts reported as correct. The patient was transferred to PACU in stable condition.
[2023-10-22] MEDS: HYDROmorphone HCl 0.5 MG/0.5 ML SYRINGE IVPUSH (12:35)
[2023-10-22] MEDS: Acetaminophen 1,000 MG/100 ML PIGGYBACK 400 MG IV ×2 (14:08→18:19)
--- NOTE | 2023-10-22 15:15 | MHC.CM.PN ---
per rounds pt having a coloncsopy posiible loraine geller
[2023-10-23] MEDS: Acetaminophen 1,000 MG/100 ML PIGGYBACK 400 MG IV ×2 (00:37→05:40)
[2023-10-23] MEDS: Piperacillin Sodium/Tazobactam 3.375 GM in 0.9 % Sodium Chloride 50 ML IV (00:54)
[2023-10-23 03:50] VITALS: BP 138/87; PULSE 48; RESP 17; TEMP 36.7; O2SAT 95
[2023-10-23 06:47] LABS: MANUAL DIFF FLAG NO
[2023-10-23 06:52] LABS: Basophils Percent Auto 0.3 % (0-2); Eosinophils Absolute Auto 0.1 X10*3/uL (0.0-0.4); Eosinophils Percent Auto 0.8 % (0-4); Hematocrit 36.2 % (37.0-47.0); Hemoglobin 11.8 g/dl (12.0-16.0); Imm Gran Abs Auto 0.03 X10*3/uL (0.00-0.03); Imm Gran Pct Auto 0.3 % (0.0-0.4); Lymphocytes Absolute Auto 3.1 X10*3/uL (1.2-4.9); Lymphocytes Percent Auto 26.5 % (20-40); Mean Corpuscular HGB Conc 32.6 g/dl (31.0-35.0); Mean Corpuscular Hemoglobin 27.5 pg (27.0-33.0); Mean Corpuscular Volume 84.4 fL (80.0-98.0); Mean Platelet Volume 10.3 fL (9.4-12.3); Monocytes Absolute Auto 0.7 X10*3/uL (0.1-1.2); Monocytes Percent Auto 6.1 % (2-11); Neutrophils Absolute Auto 7.7 x10*3/uL (2.0-8.3); Platelet Count 316 X10*3/uL (160-400); Red Blood Count 4.29 X10*6/uL (4.20-5.50); Red Cell Distribution Width 13.4 % (11.0-16.0); White Blood Count 11.6 X10*3/uL (4.8-10.8)
[2023-10-23 07:12] LABS: Alanine Aminotransferase 68 U/L (0-31); Albumin Level 3.1 g/dL (3.5-5.0); Alkaline Phosphatase 60 U/L (39-117); Anion Gap 12 (12-20); Aspartate Amino Transferase 46 U/L (5-31); Bilirubin Direct 0.1 mg/dL (0.0-0.5); Bilirubin Total 0.3 mg/dL (0.0-1.0); Blood Urea Nitrogen 8 mg/dL (9-16); Calcium 8.8 mg/dL (8.4-10.2); Carbon Dioxide 26 mmol/L (22-29); Chloride 105 mmol/L (96-108); Creatinine Clr Calc Pharmacy 102.3; Estimated Glomerular Filt Rate > 60; Glucose Random 101 mg/dL (60-115); Potassium 3.7 mmol/L (3.3-5.1); Sodium 139 mmol/L (135-145); Total Protein 6.8 g/dL (6.5-8.0)
--- NOTE | 2023-10-23 07:15 | P.DS_ITS ---
DS: Providers Provider Date of Service: 10/23/23 Date of admission: 10/19/23 11:10 Primary care physician: Unknown Physician Consults: 10/18/23 15:48 Addiction Medicine Routine Consulting Provider: Addiction Covering Reason for consultation: polysubstance use 10/18/23 15:57 Consult to General Surgery Routine Consulting Provider: [facility] General Surgeons Reason for consultation: cholecystitis DS: Diagnosis Discharge Diagnosis (1) Nausea & vomiting: Status: Acute (2) Cholecystitis: Status: Deleted DS: Summary Hospital Course Hospital Course: History and physical as per admitting provider. 28-year-old female with history of IV drug abuse presents to the ED earlier today for evaluation of right upper quadrant pain, nausea, vomiting that started earlier this morning. She reports sudden onset right upper quadrant pain that was not precipitated by anything in particular. She states she had EN banana bread, mashed potatoes, and beef last night. Denies any diarrhea, fevers, chills, constipation, melena, hematochezia, sick contacts. She currently reports 5/10 pain in the right upper quadrant that does not radiate. On arrival, patient is bradycardic to 45, vitals otherwise stable. There is no leukocytosis. Renal function electrolyte levels are normal. Hepatic function is normal. Urinalysis and urine tox screen are pending. Abdominal ultrasound shows mildly distended gallbladder demonstrating gallstones and small amount of pericholecystic fluid. CT abdomen/pelvis shows hepatosplenomegaly with periportal edema as well as gallbladder hydrops with cholelithiasis and pericholecystic fluid suggestive of cholecystitis. HIDA scan is pending. In the ED, given IV ketorolac. Denies ongoing substance use. No cigarettes or etoh use. 28-year-old woman treated for acute cholecystitis. Status post cholecystectomy 10/22/2023. Post surgery patient has remained mostly pain-free, no nausea or vomiting. Good appetite. Plan for follow-up with general surgeon in 1 week. Patient also has a history of IV drug abuse, encouraged the importance of cessation. She was started on methadone with no withdrawals during hospitalization. She was also noted to have bradycardia which is chronic and asymptomatic. At this time the patient is stable will be discharged home. Time Attestation Discharge coordination time: Greater than 30 minutes Quality: Safe Use of Opioids Does Pt have an Active Cancer Diagnosis on the Problem List?: No Quality: Stroke Does the patient have a stroke diagnosis?: No Physical Exam Vital Signs: Vital Signs: Last Vital Signs Temp 98.0 F 10/23/23 03:50 Pulse 48 L 10/23/23 03:50 Resp 17 10/23/23 03:50 BP 138/87 10/23/23 03:50 Pulse Ox 95 10/23/23 03:50 O2 Del Method Room Air 10/23/23 03:50 O2 Flow Rate 6 10/22/23 12:23 BMI result Body Mass Index 20.6 Appearing in no acute distress head is normocephalic atraumatic eyes pupils are PERRLA sclera is anicteric mouth throat mucous membranes are intact and moist neck is supple no lymphadenopathy, no JVD noted lung sounds are clear to auscultation heart regular rate rhythm, clear S1, S2 positive bowel sounds, abdomen is soft, nontender neuro patient is alert x3, no focal deficits DS: Data Data Completed and Pending Pending studies at discharge: Pending at discharge 10/22/23 11:43 Surgical [PTH] Routine Labs on day of discharge: Laboratory Results - last 24 hr 10/23/23 05:16 WBC 11.6 H RBC 4.29 Hgb 11.8 L Hct 36.2 L MCV 84.4 MCH 27.5 MCHC 32.6 RDW 13.4 Plt Count 316 MPV 10.3 Immature Gran % (Auto) 0.3 Neut % (Auto) 66.0 Lymph % (Auto) 26.5 [place] % (Auto) 6.1 Eos % (Auto) 0.8 Baso % (Auto) 0.3 Lymph # (Auto) 3.1 [place] # (Auto) 0.7 Eos # (Auto) 0.1 Baso # (Auto) 0.0 Abs Immat Gran (auto) 0.03 Absolute Neuts (auto) 7.7 Absolute Nucleated RBC 0.000 Nucleated RBC % (auto) 0.0 Sodium 139 Potassium 3.7 Chloride 105 Carbon Dioxide 26 Anion Gap 12 BUN 8 L Creatinine 0.71 Estim Creat Clear Calc 102.3 Estimated GFR > 60 Random Glucose 101 Calcium 8.8 Total Bilirubin 0.3 Direct Bilirubin 0.1 AST 46 H ALT 68 H Alkaline Phosphatase 60 Total Protein 6.8 Albumin 3.1 L Discharge Plan Discharge Anticipated Discharge Date/Time: 10/23/23 07:14 Patient Disposition: Home, Self-Care Discharge Diagnosis: Cholecystitis E coli UTI Referrals: Nolberto Frost MD [Physician] - 1 Week Discharge Medications: No Action No Known Home Meds Discharge Orders: Discharge Order (Routine); Ordered 10/23/23 Ordered By: Madonna Zuñiga Diet: Advance to usual diet Activity on Discharge: As tolerated Stand Alone Forms: Patient Portal Discharge page Care Plan Goals: Follow up with general surgeon in 1 week Health Concerns: Cholecystitis E coli UTI Plan of Treatment: Follow-up with primary care provider as needed Take all medications as prescribed Assessment: See discharge summary
[2023-10-23 07:20] VITALS: BP 112/75; PULSE 50; RESP 16; TEMP 36.6; O2SAT 99
--- NOTE | 2023-10-23 07:36 | PM.PNGS ---
Subjective Subjective Date of Service: 10/23/23 Interval history: Reports feeling pretty good this morning. Minimal incisional pain. She was able to eat last night without nausea or vomiting. Physical Exam Vital Signs: Vital Signs: Last Vital Signs Temp 97.8 F 10/23/23 07:20 Pulse 50 10/23/23 07:20 Resp 16 10/23/23 07:20 BP 112/75 10/23/23 07:20 Pulse Ox 99 10/23/23 07:20 O2 Del Method Room Air 10/23/23 07:20 O2 Flow Rate 6 10/22/23 12:23 BMI result Body Mass Index 20.6 Const: General: no acute distress Nutritional Appearance: well nourished Orientation/consciousness: patient oriented x3 Resp: Effort & Inspection: normal respiratory effort, no audible wheezes and no cough GI: Other: Trochar incision sites are clean, dry and intact without bleeding Skin: Other: warm, dry, no rash, normal color Neuro: General: patient oriented x3 Extrem: Other: no edema Objective Data Active Medications Hydromorphone HCl (Hydromorphone Hcl 1 Mg/Ml Syringe) 0.5 mg IVPUSH Q4H PRN; Protocol PRN Reason: Pain, Severe (Pain Scale 7-10) Methadone HCl (Methadone Hcl 20 Mg/2 Ml Oral.Conc) 60 mg PO DAILY [facility] Last Admin: 10/22/23 07:46 Dose: 60 mg Documented By: ARIS Comments: give now prior to surgery per OR Ondansetron HCl (Ondansetron Hcl 4 Mg/2 Ml Vial) 4 mg IVPUSH Q8H PRN PRN Reason: Nausea and Vomiting Oxycodone HCl (Oxycodone Hcl Immed Release 5 Mg Tablet) 5 mg PO Q6H PRN PRN Reason: Pain, Moderate(Pain Scale 4-6) Senna (Sennosides 8.6 Mg Tablet) 17.2 mg PO BEDTIME PRN PRN Reason: Constipation Sodium Chloride (0.9 % Sodium Chloride Flush 3 Ml Syringe) 3 ml IVFLUSH QSHIFT [facility] Last Admin: 10/22/23 20:22 Dose: 3 ml Documented By: TAMEKA Labs 10/23/23 05:16 10/23/23 05:16 Labs: Laboratory Results - last 24 hr 10/23/23 05:16 MCV 84.4 MCH 27.5 MCHC 32.6 RDW 13.4 Plt Count 316 MPV 10.3 Immature Gran % (Auto) 0.3 Neut % (Auto) 66.0 Lymph % (Auto) 26.5 [place] % (Auto) 6.1 Eos % (Auto) 0.8 Baso % (Auto) 0.3 Lymph # (Auto) 3.1 [place] # (Auto) 0.7 Eos # (Auto) 0.1 Baso # (Auto) 0.0 Abs Immat Gran (auto) 0.03 Absolute Neuts (auto) 7.7 Absolute Nucleated RBC 0.000 Nucleated RBC % (auto) 0.0 Anion Gap 12 Estim Creat Clear Calc 102.3 Estimated GFR > 60 Random Glucose 101 Calcium 8.8 Total Bilirubin 0.3 Direct Bilirubin 0.1 AST 46 H ALT 68 H Alkaline Phosphatase 60 Total Protein 6.8 Albumin 3.1 L Procedures Date of Service Date of Service: 10/23/23 Progress Note: A&P Assessment and plan (1) Cholecystitis, acute with cholelithiasis: Status: Acute (2) Opioid use disorder: Status: Acute (3) Cholecystitis: Status: Deleted Plan POD #1 s/p laparoscopic cholecystectomy for acute cholecystitis due to cholelithaisis. Patient feels improved today without nausea or vomiting, tolerating po and with adequate pain control. Possible discharge to home later today with follow up in the office in one week. Time Spent With Patient Time: Total time managing care of this patient today ____ minutes. Quality Stroke Does the patient have a stroke diagnosis?: No VTE Prior VTE?: No VTE Risk Level:: Medical - moderate - high VTE Device Contraindication: N/A - Device Ordered VTE Drug Contraindication: Treatment Not Indicated
[2023-10-23] MEDS: methADONE HCl 20 MG/2 ML ORAL.CONC 60 MG PO (08:37)
[2023-10-23] MEDS: 0.9 % Sodium Chloride Flush 3 ML SYRINGE IVFLUSH (08:39)
--- NOTE | 2023-10-23 09:51 | MHC.CM.PN ---
pt dcd home with resumption of [facility]
[2023-10-23] MEDS: oxyCODONE HCl Immed Release 5 MG TABLET PO (10:34)
== END 2023-10-23 11:32 | disposition home or self-care (01) | DRG 263 ==
LOC: HO.ED 11:29 → HO.EDOVER 17:20 → HO.S3 23:16
PROVIDERS: Anesthesiology; Hospitalist; Physician Assistant; Surgery; Admitting Provider Physician Assistant; Emergency Provider Emergency Medicine; Visit Provider Nurse Practitioner Acute Care
PROC: 0FT44ZZ Resection of Gallbladder, Percutaneous Endoscopic Approach (ICD-10-PCS; CPT 47562; principal; 2023-10-22 09:00)
DX: K80.00 Calculus of gallbladder with acute cholecystitis without obstruction (principal); F11.13 Opioid abuse with withdrawal; R00.1 Bradycardia, unspecified; F14.93 Cocaine use, unspecified with withdrawal
CPT/HCPCS: 47562; 36415; 74177; 76705; 78226; 80048; 80053; 80076; 80307; 81001; 82248; 83690; 83735; 84484; 84702; 85025; 85027; 85610; 87086; 87088; 87186; 88304; 93005; 99024; 99221; 99285; A9537; J0131; J0696; J1100; J1170; J1885; J2250; J2270; J2371; J2405; J2543; J2704; J2795; J3010; Q9967

== ENCOUNTER → 2023-10-18 09:12 | Outpatient (BNV) | payer MEDICAID, SELFPAY | PROVIDERS: Emergency Provider Emergency Medicine; Visit Provider Surgery | DX: K81.9 Cholecystitis, unspecified (principal); F11.90 Opioid use, unspecified, uncomplicated | CPT/HCPCS: 47562; 99232; 99283; 99499 ==

== ENCOUNTER → 2023-10-18 15:36 | Outpatient (BNV) | payer MEDICAID, SELFPAY | PROVIDERS: Admitting Provider Physician Assistant; Emergency Provider Emergency Medicine; Visit Provider Hospitalist | DX: K81.9 Cholecystitis, unspecified (principal); R11.2 Nausea with vomiting, unspecified | CPT/HCPCS: 99223; 99232; 99233; 99239 ==

== ENCOUNTER 2023-10-19 11:10 | Outpatient (BNV) | payer MEDICAID, SELFPAY | END 2023-10-19 11:35 | PROVIDERS: Admitting Provider Physician Assistant; Emergency Provider Emergency Medicine; Visit Provider Internal Medicine | DX: I45.81 Long QT syndrome (principal) | CPT/HCPCS: 93010 ==

== ENCOUNTER → 2023-10-19 11:10 | Outpatient (BNV) | payer OTHER, SELFPAY | PROVIDERS: Admitting Provider Physician Assistant; Emergency Provider Emergency Medicine; Visit Provider Nurse Practitioner Psychiatric/Mental Health | DX: F11.90 Opioid use, unspecified, uncomplicated (principal) | CPT/HCPCS: 99222; 99232 ==

== ENCOUNTER 2023-11-13 06:39 | Inpatient (IN) | payer MEDICAID, SELFPAY ==
--- NOTE | ~2023-11-13 | NM_ITS ---
EXAMINATION: BILIARY TRACT IMAGING STUDY CLINICAL INFORMATION: Suspected biliary leak status post cholecystectomy.. COMPARISON: The previous study dated 10/19/2023, performed prior to the patient's cholecystectomy is available for comparison. The diagnostic CT scan of the abdomen and pelvis, dated 11/13/2023, the same date as this bone scan, is available for comparison.. TECHNIQUE: Serial gamma scintillation camera images were obtained over the abdomen for a total observation period of 2.5 hours following the intravenous administration of 5 mCi Tc-99m Mebrofenin. FINDINGS: There is good concentration of activity in the liver by 5 minutes post injection. Biliary activity is visualized by 15 minutes minutes. Small bowel is well visualized by 20 minutes. The gallbladder has been resected and is not visualized. As a study progresses there is increasing accumulation of activity in the small bowel which is visualized diffusely by 60 minutes. There is a focus of activity in the dayana hepatis region persists, but is very faint. Some adjacent activity along the inferior margin of the right lobe is present and although faint, this activity was not present on the earlier images. The most intense activity in the dayana hepatis region appears to correspond to the region of retained fluid and air at this site on the contemporaneous CT scan. NM/NM hepatobiliary wo pharm IMPRESSION: A small biliary leak is probably present with persistent faint accumulation of activity in the dayana hepatis corresponding to the region of fluid retention adjacent to the metallic surgical clips in the gallbladder bed region on the contemporaneous CT scan. Some extension of this along the inferior margin of the right lobe of the liver is likely present. Most of the biliary activity appears to drain normally through the common bile duct into the small bowel.
--- NOTE | ~2023-11-13 | CT_ITS ---
EXAMINATION: CT ABDOMEN AND PELVIS WITH CONTRAST CLINICAL INFORMATION: Status post cholecystectomy 2 weeks ago, abdominal pain, nausea and vomiting. COMPARISON: None available. TECHNIQUE: Multidetector volumetric images were obtained from the superior aspect of the liver through the pubic symphysis following administration 85 mL of Omnipaque 350 intravenous contrast. Sagittal and coronal reformatted images were obtained on the technologist's workstation. Oral contrast: No This CT examination was performed using dose optimization techniques as appropriate, variously including the following: *Automated exposure control *Adjustment of mA and/or kV according to patient size (this includes techniques or standardized protocols for targeted exams where dose is matched to indication/reason for exam; i.e. extremities or head) *Use of iterative reconstruction technique DLP: 354 mGy-cm FINDINGS: LUNG BASES: The lung bases are clear. LIVER, GALLBLADDER, AND BILIARY TREE: The liver is normal in size, shape, and attenuation. There is mild intrahepatic ductal dilatation. No focal lesion seen. The gallbladder has been surgically resected with a small air-fluid collection in the gallbladder fossa question seroma versus biliary leak. PANCREAS: The pancreas is unremarkable. SPLEEN: The spleen is slightly heterogeneous likely related to variable contrast uptake. ADRENAL GLANDS: Unremarkable. KIDNEYS AND URETERS: The kidneys are normal in size, shape, and attenuation. No hydronephrosis, hydroureter, or calculi seen. No perinephric stranding. BLADDER: Unremarkable. GASTROINTESTINAL TRACT: There is scattered moderate stool and gas seen in the descending and sigmoid colon without significant distention. The small bowel loops are normal caliber. There acute humongous dilated stomach with fluid. Recommend enteric tube. ABDOMINAL WALL: No significant hernia is appreciated. LYMPH NODES: Normal. VASCULAR: Unremarkable. PELVIC VISCERA: Unremarkable. OSSEOUS STRUCTURES: No aggressive lytic or sclerotic process seen. CT/CT abdomen pelvis w IV con IMPRESSION: Status post cholecystectomy changes with small amount of air-fluid level in the right upper quadrant question seroma versus biliary leak. Mild intrahepatic ductal dilatation. Recommend HIDA scan to evaluate for biliary leak Humongous dilated stomach with fluid likely acute gastric paresis. Recommend enteric tube. Results were discussed with Mona YING by phone at 10:10 AM. Fleischner guidelines were followed.
--- NOTE | ~2023-11-13 | FL_ITS ---
EXAMINATION: XR FLUOROSCOPY WITH IMAGES CLINICAL INFORMATION: ERCP COMPARISON: CT abdomen and pelvis 11/13/2023 TECHNIQUE: Fluoroscopy Supervised By: Dr. Kvng Moy Fluoroscopy Time: 48.7 seconds. Cumulative Dose: 11.89 mGy. DAP: n/a Gycm2. Images: 6. FINDINGS: 6 images from an ERCP were obtained. Surgical clips are seen in the right upper quadrant consistent with prior cholecystectomy. FL/FL guidance in OR IMPRESSION: Fluoroscopic guidance provided for ERCP.
--- NOTE | ~2023-11-13 | XR_ITS ---
EXAMINATION: XR CHEST CLINICAL INFORMATION: Recheck NG tube COMPARISON: Chest x-ray performed earlier on 11/13/2023 TECHNIQUE: Frontal view of the chest was obtained. FINDINGS: A single image of the chest and upper abdomen reveals tip of nasogastric tube to be in the mid body stomach. The second chest tube seen earlier was an external part of the NG tube and has been side lined on the present exam. The lungs are expanded and clear. Heart size is normal. No free fluid seen on the upright abdomen image. XR/XR chest 1V IMPRESSION: Tip of nasogastric tube is in the mid body stomach.
--- NOTE | ~2023-11-13 | MR_ITS ---
EXAMINATION: MR ABDOMEN WITHOUT AND WITH CONTRAST MR CHOLANGIOPANCREATOGRAPHY CLINICAL INFORMATION: Right-sided abdominal pain, fluid collection in gallbladder fossa, distended stomach COMPARISON: CT scan of abdomen and pelvis, HIDA scan on 11/13/2023 TECHNIQUE: Examination was performed in a high field strength MRI scanner. Multiplanar multisequence MR imaging of the abdomen was performed without IV contrast enhancement. Multiphasic Axial T1-weighted fat-suppressed images of the upper abdomen were obtained after IV injection of 6 mL Gadavist. Coronal T1-weighted fat-suppressed images of the abdomen were obtained following the dynamic axial series. MR cholangiopancreatography was performed with heavily T2 weighted sequences. 3-dimensional reconstruction of image data was performed. This was performed under concurrent direct supervision and monitoring by radiologist. Maximum intensity projection images were constructed. FINDINGS: MR CHOLANGIOPANCREATOGRAPHY: Gallbladder is surgically absent. Bilateral intra hepatic bile ducts are mildly dilated. Common hepatic duct and common bile duct are normal in size without filling defects. Pancreatic duct is normal in size. LIVER: The liver shows no focal lesion. The right hepatic lobe measures 19.3 cm in vertical length, mildly enlarged. Diffuse periportal T2 hyperintensity consistent with periportal edema is seen. The calculated hepatic fat percentage is 0.1%, compatible with normal. A T1 hypointense, T2 hyperintense nonenhancing fluid collection is seen in the gallbladder fossa, measuring 1.1 cm in AP diameter, 1.7 cm in width, 1.8 cm in vertical height. PANCREAS: No focal pancreatic lesion with abnormal signal can be seen. SPLEEN: Spleen is normal in size without focal lesion. ADRENAL: Bilateral adrenal glands are normal in shape and size. KIDNEYS: Bilateral kidneys are normal in size without focal lesion. Marked L5-S1 degenerative lumbar disc disease and mild posterior disc protrusion are present. MR/MR abdomen wo/w con IMPRESSION: 1. Status post cholecystectomy with a small biloma in the gallbladder fossa, demonstrated to be a contained bile leak on nuclear medicine HIDA scan on 11/13/2023. 2. Mild hepatomegaly and periportal edema. 3. Mild intrahepatic bile duct dilatation. No evidence of extrahepatic bile duct dilatation.
--- NOTE | ~2023-11-13 | XR_ITS ---
EXAMINATION: XR CHEST CLINICAL INFORMATION: Post NG tube COMPARISON: Chest 12/12/2019 TECHNIQUE: Frontal view of the chest was obtained. FINDINGS: There are 2 new nasogastric tubes. The first nasogastric tube tip is below diaphragm in stomach. The second nasogastric tube tip appears at the GE junction. The lungs are expanded and clear. No gross bony abnormality seen.. XR/XR chest 1V IMPRESSION: 2 new nasogastric tubes are in satisfactory position. One of the nasogastric tube is at GE junction mild the second one below the diaphragm in the stomach. The lungs are clear
[2023-11-13 07:11] VITALS: BP 145/106; PULSE 74; RESP 18; TEMP 36.4; O2SAT 97; BMI 21.9
[2023-11-13 07:25] LABS: MANUAL DIFF FLAG NO
[2023-11-13 07:29] LABS: Basophils Percent Auto 0.3 % (0-2); Eosinophils Absolute Auto 0.1 X10*3/uL (0.0-0.4); Hematocrit 38.8 % (37.0-47.0); Hemoglobin 12.6 g/dl (12.0-16.0); Imm Gran Abs Auto 0.02 X10*3/uL (0.00-0.03); Imm Gran Pct Auto 0.2 % (0.0-0.4); Lymphocytes Absolute Auto 2.2 X10*3/uL (1.2-4.9); Lymphocytes Percent Auto 24.5 % (20-40); Mean Corpuscular HGB Conc 32.5 g/dl (31.0-35.0); Mean Corpuscular Hemoglobin 26.5 pg (27.0-33.0); Mean Corpuscular Volume 81.7 fL (80.0-98.0); Mean Platelet Volume 9.7 fL (9.4-12.3); Monocytes Absolute Auto 0.5 X10*3/uL (0.1-1.2); Monocytes Percent Auto 5.2 % (2-11); Neutrophils Absolute Auto 6.3 x10*3/uL (2.0-8.3); Neutrophils Percent Auto 68.8 % (45-73); Platelet Count 521 X10*3/uL (160-400); Red Blood Count 4.75 X10*6/uL (4.20-5.50); Red Cell Distribution Width 12.9 % (11.0-16.0); White Blood Count 9.1 X10*3/uL (4.8-10.8)
[2023-11-13 07:41] LABS: Alanine Aminotransferase 119 U/L (0-31); Alkaline Phosphatase 193 U/L (39-117); Anion Gap 18 (12-20); Aspartate Amino Transferase 36 U/L (5-31); Bilirubin Direct 0.2 mg/dL (0.0-0.5); Bilirubin Total 0.4 mg/dL (0.0-1.0); Blood Urea Nitrogen 18 mg/dL (9-16); Calcium 10.2 mg/dL (8.4-10.2); Carbon Dioxide 27 mmol/L (22-29); Chloride 99 mmol/L (96-108); Estimated Glomerular Filt Rate > 60; Glucose Random 116 mg/dL (60-115); Lipase 14 U/L (8-78); Sodium 139 mmol/L (135-145); Total Protein 10.6 g/dL (6.5-8.0)
[2023-11-13 07:43] LABS: Appearance Urine Turbid; Color Urine Dark Yellow; Glucose Urine UA Negative (Negative); Leukocyte Esterase Urine Moderate (2+) (Negative); Nitrite Urine Negative (Negative); Specific Gravity - Urine >= 1.030 (1.005-1.025); UMIC TRIGGER UACC YES; Urine Blood Large (3+) (Negative); Urine Ketones Trace mg/dL (Negative); Urine Protein 100 (2+) mg/dL (Neg-Trace)
[2023-11-13 07:43] LABS: COVID-19 Test Negative (Negative); IDNOW Serial# 08D9AD1C
[2023-11-13 07:44] LABS: UPreg QC Valid YES; Urine Pregnancy NEGATIVE (NEGATIVE)
--- NOTE | 2023-11-13 07:45 | ED.ABDPAIN ---
HPI - Abdominal Pain General Chief Complaint: Abdominal Pain Stated Complaint: infection post op, gallbladder removal Time Seen by Provider: 11/13/23 07:43 Source: patient, RN notes reviewed and old records reviewed Mode of arrival: ambulatory History of Present Illness HPI narrative: 28-year-old female with a past medical history of polysubstance abuse cholecystitis s/p cholecystectomy on 10/22/[address] Frost presenting to the ED complaining of abdominal pain, nausea, vomiting and inability to tolerate p.o. x4 days. Also reports redness and pus to incision site. Denies fever/chills, diarrhea/constipation, dysuria/hematuria. MD elicited complaint: abdominal pain Related Data Home Medications Medication Instructions Recorded Confirmed methadone 10 mg/mL oral 60 mg PO DAILY 11/13/23 concentrate (Methadone Intensol) Allergies Allergy/AdvReac Type Severity Reaction Status Date / Time No Known Allergies Allergy Verified 11/13/23 07:14 [No Known Allergies*] Review of Systems Review of Systems Constitutional: No Fever, No Chills ENT/Mouth: No Ear Pain, No Nasal Congestion, No sore throat, No Rhinorrhea, No Swallowing Difficulty Cardiovascular: No Chest Pain, No SOB Respiratory: No Cough, No Sputum, No Wheezing Gastrointestinal: +Nausea, + Vomiting, No Diarrhea, No Constipation, + Abdominal pain Genitourinary: No Dysuria, No Urinary Frequency, No Hematuria Musculoskeletal: No joint pain, No Myalgias Skin: No Skin Lesions, No rash Neuro: No Weakness Yes all other systems are reviewed and are negative Constitutional: Reports as per [facility] Past Medical History Attestation statement: The following information was validated with the patient. Source: old records reviewed Medical History Opioid use disorder IV drug abuse Social History Social History Household Members: Family Do you presently have visiting nurse or other home services: No Alcohol intake: never Comment: counts correct Patient Tobacco Use Status: Never used Tobacco Smoked in Last 30 Days: No Second Hand Smoke Exposure: No Use of substances other than those prescribed or required for medical reasons: Yes Substance Use Type: Marijuana Advance Directives: No Advance Directives Information Provided: No service: No Physical Exam ED Vital Signs: Vital Signs - 24 hr 11/13/23 07:11 11/13/23 10:00 Temperature 97.6 F Pulse Rate 74 58 Respiratory Rate 18 18 Blood Pressure 145/106 H 114/67 Pulse Oximetry 97 94 Oxygen Delivery Method Room Air Room Air BMI result Body Mass Index 21.9 Const General: cooperative, healthy appearing and no acute distress Orientation/consciousness: patient oriented x3 Limitations: no limitations HENMT Head: Yes normal to inspection and Yes atraumatic Ears: hearing grossly normal bilaterally General nose exam: Normal external nose present Face and sinus: Yes normal facial exam Eyes General: appearance normal, both eyes and all related structures EOM: EOMs intact bilaterally Neck Neck: Yes normal visual inspection and Yes no meningeal signs Resp Effort & Inspection: normal respiratory effort and no respiratory distress Auscultation: clear to auscultation bilaterally Cardio Rate: regular rate Heart sounds: S1 normal heart sound present and S2 normal heart sound present GI Other: Healing incision site noted with slight surrounding erythema. + mildly tender palpable lump. No warmth, no fluctuance/induration or pus drainage Inspection: Yes normal to inspection and Yes incision Palpation (GI): Soft to palpation, Tenderness to palpation present (GI) in the epigastrum; with no rebound tenderness, no guarding and not rigid General: Yes no CVA tenderness Back/Spine/Pelvis Back: no CVA tenderness Skin Rashes: no rashes Wounds: no wounds Neuro General: patient oriented x3, tone normal and no meningeal signs Cranial nerves: Yes CN's II-XII intact bilaterally Gait exam (Neuro): Normal gait present Extrem General: Yes normal to inspection Procedures Procedure Narrative Procedure Narrative: NG tube placement Placed by patient's nurse No complications Course Course Course Narrative: -0952--no leukocytosis. Chronic transaminitis. -UA contaminated, will wait on initiating antibiotics until culture results >> case discussed with general surgery, Dr. Frost who evaluated patient in the ED and recommended NG tube placement due to distended stomach -1025--CT abdomen pelvis w IV con IMPRESSION: Status post cholecystectomy changes with small amount of air-fluid level in the right upper quadrant question seroma versus biliary leak. Mild intrahepatic ductal dilatation. Recommend HIDA scan to evaluate for biliary leak Humongous dilated stomach with fluid likely acute gastric paresis. Recommend enteric tube. Results were discussed with Mona YING by phone at 10:10 AM. Fleischner guidelines were followed. > plan to admit to General surgery, Dr. Frost, HIDA scan ordered -NG tube placed without complication, 700 cc immediate output given > x-ray confirms NG tube placement however is appreciating two nasogastric tubes >> suspect external tubes overlying chest wall, will move and repeat for clarification Medical Decision Making Medical Decision Making [facility] Narrative: 28-year-old female with a past medical history of polysubstance abuse cholecystitis s/p cholecystectomy on 10/22/[address] Frost presenting to the ED complaining of abdominal pain, nausea, vomiting and inability to tolerate p.o. x4 days. On exam hypertensive, NAD, abdomen is soft with epigastric tenderness, no rebound or guarding, appears uncomfortable. Concern for surgical complication including abscess vs seroma vs metabolic/infectious etiologies. Plan: Labs, UA, CT AP, IVF, pain control/antiemetics, re-evaluate Please refer to course for remaining clinical decision making, interpretation of labs/imaging results, and discussions with consultants and/or family members. Differential Diagnosis Differential Diagnoses: The differential diagnosis associated with the presentation includes As above Admission/Observation Consideration of admission/observation: Escalation of care including admission/observation considered Consult Healthcare Provider Management of the patient was discussed with: Product Development Coordinator (General surgery, Dr. Frost) Radiologist, Dr. Valdes Lab Data [facility] Lab Attestation statement: I reviewed the patient's lab results. 11/13/23 07:19 11/13/23 07:19 Labs: Lab Results 11/13/23 11/13/23 Range/Units 07:19 07:24 WBC 9.1 (4.8-10.8) X10*3/uL RBC 4.75 (4.20-5.50) X10*6/uL Hgb 12.6 (12.0-16.0) g/dl Hct 38.8 (37.0-47.0) % MCV 81.7 (80.0-98.0) fL MCH 26.5 L (27.0-33.0) pg MCHC 32.5 (31.0-35.0) g/dl RDW 12.9 (11.0-16.0) % Plt Count 521 H D (160-400) X10*3/uL MPV 9.7 (9.4-12.3) fL Immature Gran % (Auto) 0.2 (0.0-0.4) % Neut % (Auto) 68.8 (45-73) % Lymph % (Auto) 24.5 (20-40) % [place] % (Auto) 5.2 (2-11) % Eos % (Auto) 1.0 (0-4) % Baso % (Auto) 0.3 (0-2) % Lymph # (Auto) 2.2 (1.2-4.9) X10*3/uL [place] # (Auto) 0.5 (0.1-1.2) X10*3/uL Eos # (Auto) 0.1 (0.0-0.4) X10*3/uL Baso # (Auto) 0.0 (0.0-0.2) X10*3/uL Abs Immat Gran (auto) 0.02 (0.00-0.03) X10*3/uL Absolute Neuts (auto) 6.3 (2.0-8.3) x10*3/uL Absolute Nucleated RBC 0.000 (0.0-0.012) X10*3/uL Nucleated RBC % (auto) 0.0 (0.0-0.2) /100WBC Sodium 139 (135-145) mmol/L Potassium 5.0 D (3.3-5.1) mmol/L Chloride 99 (96-108) mmol/L Carbon Dioxide 27 (22-29) mmol/L Anion Gap 18 (12-20) BUN 18 H (9-16) mg/dL Creatinine 0.90 (0.5-1.4) mg/dL Estim Creat Clear Calc 81.0 Estimated GFR > 60 Random Glucose 116 H (60-115) mg/dL Calcium 10.2 D (8.4-10.2) mg/dL Magnesium 2.0 (1.6-2.6) mg/dL Total Bilirubin 0.4 (0.0-1.0) mg/dL Direct Bilirubin 0.2 (0.0-0.5) mg/dL AST 36 H (5-31) U/L ALT 119 H (0-31) U/L Alkaline Phosphatase 193 H (39-117) U/L Total Protein 10.6 H (6.5-8.0) g/dL Albumin 4.0 (3.5-5.0) g/dL Lipase 14 (8-78) U/L Urine Color Dark Yellow Urine Appearance Turbid Urine pH 5.0 (5.0-9.0) Ur Specific [place] >= 1.030 H (1.005-1.025) Urine Protein 100 (2+) H (Neg-Trace) mg/dL Urine Glucose (UA) Negative (Negative) mg/dL Urine Ketones Trace (Negative) mg/dL Urine Blood Large (3+) H (Negative) Urine Nitrite Negative (Negative) Ur Leukocyte Esterase Moderate (2+) H (Negative) Urine RBC 11-20 H (0-2) /HPF Urine WBC >50 H (0-5) /HPF Ur Squamous Epith Cells >20 (0-2) /HPF Urine Bacteria 4+ (None Seen) Hyaline Casts >20 (0-2) /LPF Urine Test NEGATIVE (NEGATIVE) COVID-19 (SÁNCHEZ) Negative (Negative) COVID-19 Clin Com See Note Influenza Type A (GIOVANI) Negative (Negative) Influenza Type B (GIOVANI) Negative (Negative) Influenza A & B Note See Note Independent Interpretation I performed an independent interpretation of an: CT Scan Radiology Impression Discussion of test interpretation with radiology: I have reviewed the radiologist's reading. External Record Review External record reviewed: Inpatient record, Office record, Outpatient record, Prior outpatient labs, Prior outpatient radiology, Primary care record and Outside ED record Tests considered The following testing was considered but not selected: As above Prescription Management I considered prescription management with: Pain Medication and Antibiotic Chronic Conditions Patient?s care impacted by: Other Social Determinants Patient?s care significantly limited by Social Determinants of Health including: Low income and Alcoholism and drug addiction in family Medications Administered Discontinued Medications Generic Name Dose Route Start Last Admin Trade Name Freq PRN Reason Stop Dose Admin Sodium Chloride 1,000 mls @ 999 mls/hr 11/13/23 08:15 11/13/23 10:14 Ns IV 11/13/23 09:15 Infused .Q1H1M SHARDA Infusion Sodium Chloride 1,000 mls @ 999 mls/hr 11/13/23 09:30 11/13/23 11:23 Ns IV 11/13/23 10:30 Infused .Q1H1M SHARDA Infusion Iohexol 85 ml 11/13/23 09:19 11/13/23 09:19 Iohexol 350 Mg/Ml 100 Ml Infus..Btl IV 11/13/23 09:20 85 ml ONCE ONE Administration Lorazepam 1 mg 11/13/23 11:02 11/13/23 11:07 Lorazepam 2 Mg/Ml Vial IVPUSH 11/13/23 11:03 1 mg ONCE ONE Administration Metoclopramide HCl 10 mg 11/13/23 11:02 11/13/23 11:10 Metoclopramide Hcl 10 Mg/2 Ml Vial IVPUSH 11/13/23 11:03 10 mg ONCE ONE Administration Ondansetron HCl 4 mg 11/13/23 08:04 11/13/23 08:10 Ondansetron Hcl 4 Mg/2 Ml Vial IVPUSH 11/13/23 08:05 4 mg ONCE ONE Administration Critical Care Time Critical Care Time Critical Care Time: Yes Total Critical Care Time: 45 Attestation: I have personally provided critical care time exclusive of time spent on separately billable procedures. Time includes review of lab data, radiology results, discussion with consultants, and monitoring for potential decompensation. Intervention performed as documented. Discharge Plan Discharge Clinical Impression: Acute dilatation of stomach, Abdominal pain, Nausea & vomiting Patient Disposition: Admitted As Inpatient
[2023-11-13 07:47] LABS: IDNOW Serial# 152EDE1D
[2023-11-13 07:48] LABS: Influenza A Negative (Negative); Influenza B2 Negative (Negative)
[2023-11-13] MEDS: ondansetron HCL 4 MG/2 ML VIAL IVPUSH (08:10)
[2023-11-13] MEDS: 0.9 % Sodium Chloride 1,000 ML 999 ML IV ×2 (08:11→09:47)
[2023-11-13 08:29] LABS: Bacteria Urine 4+ (None Seen); Hyaline Casts Urine >20 /LPF (0-2); Squamous Epithelial Cell Urine >20 /HPF (0-2); UACC Culture Trigger YES; WBC Urine >50 /HPF (0-5)
[2023-11-13] MEDS: iohexoL 350 MG/ML 100 ML INFUS..BTL 85 ML IV (09:19)
[2023-11-13 10:00] VITALS: BP 114/67; PULSE 58; RESP 18; O2SAT 94
[2023-11-13] MEDS: LORazepam 2 MG/ML VIAL 1 MG IVPUSH (11:07)
[2023-11-13] MEDS: Metoclopramide HCl 10 MG/2 ML VIAL IVPUSH (11:10)
--- NOTE | 2023-11-13 11:32 | PHA.MEDREC ---
Pharmacy Consult ? Medication Reconciliation Pharmacy has completed the medication reconciliation. Patient reports she takes 60mg methadone daily. Have not confirmed. Patient also reports taking no other medications.
--- NOTE | 2023-11-13 12:09 | PC.NURSE ---
pt to Nuclear med
--- NOTE | 2023-11-13 12:22 | PM.HPGS ---
History of Present Illness History of Present Illness Date of Service: 11/13/23 Chief complaint: gastric outlet obstruction Narrative: Myranda Peña is a 28 year old female with a previous history of polysubstance abuse presenting to the emergency department with complaints of abdominal pain, nausea and vomiting times 14 days. Patient is status post laparoscopic cholecystectomy on 10/22/2023 with a findings of acute cholecystitis due to cholelithiasis. Patient was subsequently discharged home on postoperative day 1. The patient reports that for the past 14 days she has been unable to tolerate any solid food but is only able to tolerate clear liquids. She has not return for a postoperative visit to the office. She denies fever, chills, diarrhea or constipation. She does have nausea and vomiting. Workup in the emergency department revealed normal WBC however transaminases were mildly elevated. A CT abdomen and pelvis was significant for a massively distended stomach and a small collection of fluid at the gallbladder fossa. Findings were suggestive of gastroparesis verses gastric outlet obstruction. Nasogastric tube was placed in the emergency department. HIDA scan has been ordered and is pending at the time of this dictation. She is being admitted to the surgical service for further management. Review of Systems Review of Systems: Yes all other systems are reviewed and are negative Constitutional: Constitutional: Denies chills, Denies fever(s), Denies headache(s), Reports poor appetite and Denies weakness ENT: Denies headache(s) Cardiovascular: Cardiovascular: Denies chest pain, Denies irregular heart rhythm, Denies palpitations and Denies dyspnea Respiratory: Respiratory: Denies cough, Denies excessive phlegm production and Denies dyspnea Gastrointestinal: Gastrointestinal: Reports abdominal pain, Reports bloating, Denies change in bowel habits, Denies heartburn, Denies diarrhea, Reports nausea and Reports vomiting Genitourinary: Genitourinary: Denies urinary frequency Musculoskeletal: Musculoskeletal: Denies back pain, Denies muscle weakness and Denies numbness Integumentary/Breasts: Skin/Breast: Denies changing lesions and Denies unusual bruising Neurologic: Denies headache(s), Denies numbness, Denies paresthesias and Denies weakness Psychiatric: Psychiatric: Denies anxiety and Denies depression Endocrine: Endocrine: Denies palpitations Hematologic/Lymphatic: Hematologic/Lymphatic: Denies lymphadenopathy PMFSH Past Medical History Medical History Opioid use disorder IV drug abuse Social History Social History Household Members: Family Do you presently have visiting nurse or other home services: No Alcohol intake: never Comment: counts correct Patient Tobacco Use Status: Never used Tobacco Smoked in Last 30 Days: No Second Hand Smoke Exposure: No Use of substances other than those prescribed or required for medical reasons: Yes Substance Use Type: Marijuana Advance Directives: No Advance Directives Information Provided: No service: No Meds Allergies Allergy/AdvReac Type Severity Reaction Status Date / Time No Known Allergies Allergy Verified 11/13/23 07:14 [No Known Allergies*] Home Medications Medication Instructions Recorded Confirmed Last Taken Type methadone 10 mg/mL oral 60 mg PO DAILY 11/13/23 Unknown History concentrate (Methadone Intensol) Physical Exam Vital Signs: Vital Signs: Last Vital Signs Temp 97.6 F 11/13/23 07:11 Pulse 58 11/13/23 10:00 Resp 18 11/13/23 10:00 BP 114/67 11/13/23 10:00 Pulse Ox 94 11/13/23 10:00 O2 Del Method Room Air 11/13/23 10:00 BMI result Body Mass Index 21.9 Const: General: cooperative and no acute distress Nutritional Appearance: well nourished Orientation/consciousness: patient oriented x3 Limitations: no limitations HEENT: Head: Yes normocephalic and Yes atraumatic Ears: hearing grossly normal bilaterally Resp: Effort & Inspection: normal respiratory effort, no audible wheezes, no cough and no respiratory distress Cardio: Jugular venous distension: no JVD GI: Other: Trocar incisions reveal a spit suture in the epigastric incision. The remaining trocar incisions are clean and intact. No evidence of hernia. Abdomen is diffusely distended and tender. No rebound, guarding or rigidity. Inspection: Yes normal to inspection and No Kehr's sign positive Skin: Other: Warm, dry, no rash Neuro: General: patient oriented x3 Extrem: General: Yes no clubbing, cyanosis or edema Results Results Labs: Short CBC 11/13/23 Range/Units 07:19 WBC 9.1 (4.8-10.8) X10*3/uL Hgb 12.6 (12.0-16.0) g/dl Hct 38.8 (37.0-47.0) % Plt Count 521 H D (160-400) X10*3/uL BMP 11/13/23 07:19 Sodium 139 Potassium 5.0 D Chloride 99 Carbon Dioxide 27 BUN 18 H Creatinine 0.90 Calcium 10.2 D Liver Function 11/13/23 Range/Units 07:19 Total Bilirubin 0.4 (0.0-1.0) mg/dL Direct Bilirubin 0.2 (0.0-0.5) mg/dL AST 36 H (5-31) U/L ALT 119 H (0-31) U/L Alkaline Phosphatase 193 H (39-117) U/L Albumin 4.0 (3.5-5.0) g/dL Urine 11/13/23 Range/Units 07:24 Urine Color Dark Yellow Urine Appearance Turbid Urine pH 5.0 (5.0-9.0) Ur Specific [place] >= 1.030 H (1.005-1.025) Urine Protein 100 (2+) H (Neg-Trace) mg/dL Urine Glucose (UA) Negative (Negative) mg/dL Urine Test NEGATIVE (NEGATIVE) Abdomen CT scan report/results: report reviewed and image reviewed Assessment and Plan (1) Acute dilatation of stomach: Status: Acute Plan 28-year-old female patient status post laparoscopic cholecystectomy presenting with marked abdominal distention due to gastric dilatation. Nasogastric tube was placed in the emergency department. Patient will be admitted for further workup. Await the results of the HIDA scan. NPO, recheck labs in a.m.. Quality Stroke Does the patient have a stroke diagnosis?: No VTE Prior VTE?: No VTE Risk Level:: Surgical - low VTE Device Contraindication: N/A - Device Ordered VTE Drug Contraindication: Treatment Not Indicated Procedures Date of Service Date of Service: 11/13/23
[2023-11-13 15:04] VITALS: BMI 22.3
[2023-11-13 15:11] VITALS: BP 112/58; PULSE 53; RESP 18; TEMP 36.1; O2SAT 98
[2023-11-13] MEDS: Dextrose 5 % and Lactated Ring 1,000 ML 125 ML IVCONT ×2 (15:17→23:09)
[2023-11-13] MEDS: Piperacillin Sodium/Tazobactam 3.375 GM in 0.9 % Sodium Chloride 50 ML IV ×2 (16:28→22:14)
--- NOTE | 2023-11-13 16:41 | PC.NURSE ---
Pt requesting increase in pain meds. MD increase PO dilaudid, stop Oxy. Pt req IV for now and start PO tonight. APAP IV with no effect.
[2023-11-13 19:45] VITALS: BP 97/56; PULSE 62; RESP 18; TEMP 36.3; O2SAT 99
[2023-11-14] VITALS (12 sets, daily range): BP systolic 102–134; BP diastolic 49–85; PULSE 40–56; RESP 14–18; TEMP 36.2–37.1; O2SAT 97–100
[2023-11-14] MEDS: Piperacillin Sodium/Tazobactam 3.375 GM in 0.9 % Sodium Chloride 50 ML IV ×4 (03:59→21:24)
[2023-11-14] MEDS: Acetaminophen 1,000 MG/100 ML PIGGYBACK 400 MG IV (04:44)
[2023-11-14 06:44] LABS: Alanine Aminotransferase 65 U/L (0-31); Albumin Level 2.7 g/dL (3.5-5.0); Alkaline Phosphatase 122 U/L (39-117); Aspartate Amino Transferase 22 U/L (5-31); Bilirubin Direct 0.3 mg/dL (0.0-0.5); Bilirubin Total 0.5 mg/dL (0.0-1.0); Total Protein 6.8 g/dL (6.5-8.0)
--- NOTE | 2023-11-14 06:46 | HE.PHANOTE ---
METHADONE CONFIRMATION SHEET PATIENT TAKES 60MG FROM [facility] LAST DOSE 11/09/23
[2023-11-14] MEDS: Dextrose 5 % and Lactated Ring 1,000 ML 125 ML IVCONT ×2 (07:53→21:17)
[2023-11-14] MEDS: methADONE HCl 20 MG/2 ML ORAL.CONC 30 MG PO (09:14)
--- NOTE | 2023-11-14 09:17 | P.CNGI_ITS ---
History of Present Illness Data of Consult Service Date: 11/14/23 Requesting physician: Nolberto Frost Primary Care Provider: Unknown Physician HPI Reason for consult: GOO, bile leak This is a 28-year-old female with past medical history of polysubstance abuse disorder, on methadone, who has history of laparoscopic cholecystectomy for acute calculous cholecystitis 10/22/2023, lost to follow-up, who then returned yesterday for recurrent abdominal pain with nausea and vomiting. Patient has been evaluated by surgery, and workup so far has revealed significantly dilated stomach suggestive of GOO along with a small bile leak noted on HIDA. Patient reports onset of abdominal pain with decreased appetite around 5 days after her surgery. However, she states that since this has been her only abdominal surgery, she was unsure if this is part of the routine clinical course and waited it out at home. Around a week ago, she started noticing purulent drainage at the site of epigastric trocar. Now, for the last few days, she has had severe nausea and vomiting, with inability to keep anything down. Patient also missed her outpatient postop follow-up with the surgeon, and reports that she was not aware that she had one set up. Patient otherwise does not report any fevers, chills, recent NSAID use. She is on methadone, but does not report any recent changes in dose. Reports abstinence from opiate use for the last 6 weeks. Currently, at bedside evaluation, appears comfortable, with nasogastric tube in place. Canister has almost 1000 mL of effluent, with 200cc in the last 2 hours as per markings on the cannister. Review of Systems 2 Review of Systems: Yes all other systems are reviewed and are negative [facility] Past Medical History Medical History Opioid use disorder IV drug abuse Surgical History Surgical History (Updated 11/14/23 @ 09:39 by Soo Spencer) History of cholecystectomy Social History Social History Household Members: Family Housing: House Do you presently have visiting nurse or other home services: No Alcohol intake: never Comment: counts correct Patient Tobacco Use Status: Never used Tobacco Second Hand Smoke Exposure: No Substance Use Type: Marijuana service: No Meds Allergies Allergy/AdvReac Type Severity Reaction Status Date / Time No Known Allergies Allergy Verified 11/13/23 07:14 [No Known Allergies*] Active Medications: Current Medications Hydromorphone HCl (Hydromorphone Hcl 0.5 Mg/0.5 Ml Syringe) 0.5 mg IVPUSH Q3H PRN; Protocol PRN Reason: Pain, Severe (Pain Scale 7-10) Dextrose/Lactated Ringer's (D5lr) 1,000 mls @ 125 mls/hr IVCONT .Q8H [facility] Last Admin: 11/14/23 07:53 Dose: 125 mls/hr Acetaminophen (Ofirmev) 1,000 mg in 100 mls @ 400 mls/hr IV Q6H PRN PRN Reason: Pain, Moderate(Pain Scale 4-6) Last Infusion: 11/14/23 05:04 Dose: Infused Piperacillin Sod/Tazobactam (Sod 3.375 gm/ Sodium Chloride) 50 mls @ 100 mls/hr IV Q6H [facility] Last Infusion: 11/14/23 04:43 Dose: Infused Methadone HCl (Methadone Hcl 20 Mg/2 Ml Oral.Conc) 30 mg PO DAILY [facility] Ondansetron HCl (Ondansetron Hcl 4 Mg/2 Ml Vial) 4 mg IVPUSH QID PRN PRN Reason: Nausea Sodium Chloride (0.9 % Sodium Chloride Flush 3 Ml Syringe) 3 ml IVFLUSH QSHIFT [facility] Last Admin: 11/14/23 00:05 Dose: Not Given Zolpidem Tartrate (Zolpidem Tartrate 5 Mg Tablet) 5 mg PO BEDTIME PRN PRN Reason: Insomnia Home Medications Medication Instructions Recorded Confirmed Last Taken Type methadone 10 mg/mL oral 60 mg PO DAILY 11/13/23 Unknown History concentrate (Methadone Intensol) Physical Exam 2 Vital Signs: Vital Signs: Last Vital Signs Temp 97.5 F 11/14/23 07:07 Pulse 48 L 11/14/23 08:00 Resp 14 11/14/23 07:07 BP 102/68 11/14/23 07:07 Pulse Ox 97 11/14/23 07:07 O2 Del Method Room Air 11/14/23 07:07 BMI result Body Mass Index 22.3 Gen appear: NAD HEENT: nonicteric, NGT in place Chest: CTA CVS: Regular S1/S2 Abd: soft, tender with mild voluntary guarding Ext: no peripheral edema Neuro: A/Ox3, noted to move all extremities spontaneously Psych: interacting appropriately Results Labs 11/13/23 07:19 11/13/23 07:19 Labs: Liver Function 11/14/23 Range/Units 05:51 Total Bilirubin 0.5 (0.0-1.0) mg/dL Direct Bilirubin 0.3 (0.0-0.5) mg/dL AST 22 (5-31) U/L ALT 65 H (0-31) U/L Alkaline Phosphatase 122 H (39-117) U/L Albumin 2.7 L (3.5-5.0) g/dL Assessment and Plan (1) Abdominal pain: Status: Acute (2) Nausea & vomiting: Status: Acute (3) Cystic duct leak: Status: Acute (4) Gastric out let obstruction: Status: Acute (5) Opioid use disorder: Status: Acute Plan Likely developed bile leak within the 1st week postop, based on her history of onset of pain. Since has not healed spontaneously in the last 3 weeks, will recommend ERCP for sphincterotomy+/-stent placement for management. In terms of gastric outlet obstruction, some case reports describing association with bile leak, especially when it has been persistent for more than a few days. Other differentials include biiary panc leading to duodenal inflammation (while the pancreas is hard to visualize due to gastric distention, duodenal sweep and D2 wall appears thickened on CT); PUD, ? large gastric polyp etc. Plan: - Pls keep NPO - NGT to intermittent wall suction - Consider anti-secretory therapy such as PPI to decrease gastric secretions - EGD/ERCP today (will be done by the good Dr Moy) - Further recs to follow in the procedure note Thank you for allowing me to participate in her care. Please do not hesitate to reach out for any questions or concerns. Procedures Date of Service Date of Service: 11/14/23
--- NOTE | 2023-11-14 09:20 | P.PNGS_ITS ---
Subjective Subjective Date of Service: 11/14/23 Interval history: Hospital day 2, gastric outlet obstruction, bile leak. Overall patient feels much improved with no further abdominal pain nausea or vomiting. NG tube remains in place producing clear nonbilious fluid Physical Exam 2 Vital Signs: Vital Signs: Last Vital Signs Temp 97.5 F 11/14/23 07:07 Pulse 48 L 11/14/23 08:00 Resp 14 11/14/23 07:07 BP 102/68 11/14/23 07:07 Pulse Ox 97 11/14/23 07:07 O2 Del Method Room Air 11/14/23 07:07 BMI result Body Mass Index 22.3 Const: General: no acute distress Nutritional Appearance: thin O rientation/consciousness: patient oriented x3 Limitations: no limitations Resp: Effort & Inspection: normal respiratory effort GI: Inspection: Yes normal to inspection Palpation (GI): Soft to palpation, nontender, no guarding and not rigid Neuro: General: patient oriented x3 Extrem: General: No edema Objective Data Active Medications Hydromorphone HCl (Hydromorphone Hcl 0.5 Mg/0.5 Ml Syringe) 0.5 mg IVPUSH Q3H PRN; Protocol PRN Reason: Pain, Severe (Pain Scale 7-10) Dextrose/Lactated Ringer's (D5lr) 1,000 mls @ 125 mls/hr IVCONT .Q8H [facility] Last Admin: 11/14/23 07:53 Dose: 125 mls/hr Documented By: VIRGINIE Acetaminophen (Ofirmev) 1,000 mg in 100 mls @ 400 mls/hr IV Q6H PRN PRN Reason: Pain, Moderate(Pain Scale 4-6) Last Infusion: 11/14/23 05:04 Dose: Infused Documented By: SASCHA Piperacillin Sod/Tazobactam (Sod 3.375 gm/ Sodium Chloride) 50 mls @ 100 mls/hr IV Q6H [facility] Last Admin: 11/14/23 09:14 Dose: 100 mls/hr Documented By: VIRGINIE Methadone HCl (Methadone Hcl 20 Mg/2 Ml Oral.Conc) 30 mg PO DAILY [facility] Last Admin: 11/14/23 09:14 Dose: 30 mg Documented By: VIRGINIE Ondansetron HCl (Ondansetron Hcl 4 Mg/2 Ml Vial) 4 mg IVPUSH QID PRN PRN Reason: Nausea Sodium Chloride (0.9 % Sodium Chloride Flush 3 Ml Syringe) 3 ml IVFLUSH QSHIFT [facility] Last Admin: 11/14/23 09:19 Dose: Not Given Documented By: VIRGINIE Non-Admin Reason: IV Running Zolpidem Tartrate (Zolpidem Tartrate 5 Mg Tablet) 5 mg PO BEDTIME PRN PRN Reason: Insomnia Labs 11/13/23 07:19 11/13/23 07:19 Labs: Laboratory Results - last 24 hr 11/14/23 05:51 Total Bilirubin 0.5 Direct Bilirubin 0.3 AST 22 ALT 65 H Alkaline Phosphatase 122 H Total Protein 6.8 Albumin 2.7 L Procedures Date of Service Date of Service: 11/14/23 Progress Note: A&P Assessment and plan (1) Cystic duct leak: Status: Acute (2) Acute dilatation of stomach: Status: Acute Plan 28-year-old female patient status post laparoscopic cholecystectomy returning with massive gastric dilatation and a small bile leak. Nasogastric tube is in place and functioning well. Overall the patient feels much improved this morning with no further abdominal pain. She was evaluated by Gastroenterology and is awaiting ERCP to evaluate the bile leak. Further management based on ERCP findings. Time Spent With Patient Time: Total time managing care of this patient today ____ minutes. Quality Stroke Does the patient have a stroke diagnosis?: No VTE Prior VTE?: No VTE Risk Level:: Surgical - low VTE Device Contraindication: N/A - Device Ordered VTE Drug Contraindication: Treatment Not Indicated
--- NOTE | 2023-11-14 09:54 | MHC.CM.PN ---
CM MET WITH PT AT BEDSIDE. PT IS INDEPENDENT AND LIVES WITH FAMILY. WILLING TO COMPLETE A HCP. NO PCP, BROCHURE PROVIDED. DP: HOME, NO SERVICES. SISTER WILL TRANSPORT . CM WILL CONTINUE TO FOLLOW FOR ANY CHANGE IN DC PLAN/NEEDS.
--- NOTE | 2023-11-14 14:01 | MHC.SHP ---
Pre-Procedural Eval Section A - 24 Hr Update-Section A only Date of Service: 11/14/23 The patient is an INPATIENT: Yes The patient has been examined within 24 hours of the surgical procedure. The History & Physical has been completed within 30 days and I have reviewed it.: Yes Section B - Complete if H&P > 30 days Chief Complaint: gastric outlet obstruction Allergies: Allergies Allergy/AdvReac Type Severity Reaction Status Date / Time No Known Allergies Allergy Verified 11/13/23 07:14 [No Known Allergies*] Plan Diagnosis/Plan: Unchanged I have reviewed the history and physical and performed a pertinent physical examination on my patient. No changes have occurred unless specified. concern for bile leak --ERCP planned Time Spent With Patient Time: Total time managing care of this patient today ____ minutes.
--- NOTE | 2023-11-14 14:20 | HO.ANESPROP2 ---
[facility] Active Problems Active Problems: All Active Problems (Updated 11/14/23 @ 12:33 by Manuela Khan MD) Opioid use disorder (Acute) Gastric out let obstruction (Acute) Cystic duct leak (Acute) Nausea & vomiting (Acute) Abdominal pain (Acute) Acute dilatation of stomach (Acute) Past Medical History Medical History Opioid use disorder IV drug abuse Family History Family history of problems with anesthesia: No Surgical History Surgical History (Updated 11/14/23 @ 09:39 by Soo Spencer) History of cholecystectomy History of Problems with Anesthesia: No Social History Social History Household Members: Family Housing: House Do you presently have visiting nurse or other home services: No Alcohol intake: never Comment: counts correct Patient Tobacco Use Status: Never used Tobacco Second Hand Smoke Exposure: No Substance Use Type: Marijuana service: No Meds Allergies Allergy/AdvReac Type Severity Reaction Status Date / Time No Known Allergies Allergy Verified 11/13/23 07:14 [No Known Allergies*] Active Medications: Current Medications Hydromorphone HCl (Hydromorphone Hcl 0.5 Mg/0.5 Ml Syringe) 0.5 mg IVPUSH Q3H PRN; Protocol PRN Reason: Pain, Severe (Pain Scale 7-10) Dextrose/Lactated Ringer's (D5lr) 1,000 mls @ 125 mls/hr IVCONT .Q8H [facility] Last Admin: 11/14/23 12:46 Dose: Not Given Acetaminophen (Ofirmev) 1,000 mg in 100 mls @ 400 mls/hr IV Q6H PRN PRN Reason: Pain, Moderate(Pain Scale 4-6) Last Infusion: 11/14/23 05:04 Dose: Infused Piperacillin Sod/Tazobactam (Sod 3.375 gm/ Sodium Chloride) 50 mls @ 100 mls/hr IV Q6H [facility] Last Infusion: 11/14/23 10:22 Dose: Infused Methadone HCl (Methadone Hcl 20 Mg/2 Ml Oral.Conc) 30 mg PO DAILY [facility] Last Admin: 11/14/23 09:14 Dose: 30 mg Ondansetron HCl (Ondansetron Hcl 4 Mg/2 Ml Vial) 4 mg IVPUSH QID PRN PRN Reason: Nausea Pantoprazole Sodium (Pantoprazole Sodium 40 Mg/10 Ml Vial) 40 mg IVPUSH BID@0630,1630 [facility] Sodium Chloride (0.9 % Sodium Chloride Flush 3 Ml Syringe) 3 ml IVFLUSH QSHIFT [facility] Last Admin: 11/14/23 09:19 Dose: Not Given Zolpidem Tartrate (Zolpidem Tartrate 5 Mg Tablet) 5 mg PO BEDTIME PRN PRN Reason: Insomnia Home Medications Medication Instructions Recorded Confirmed Last Taken Type methadone 10 mg/mL oral 60 mg PO DAILY 11/13/23 Unknown History concentrate (Methadone Intensol) Exam Height,Weight and Vital Signs: Height 5 ft 4 in Weight 59 kg Last Vital Signs Temp 97.5 F 11/14/23 07:07 Pulse 50 11/14/23 11:37 Resp 14 11/14/23 07:07 BP 112/56 L 11/14/23 11:37 Pulse Ox 97 11/14/23 07:07 O2 Del Method Room Air 11/14/23 07:07 Pertinent Lab Results Pertinent Lab Results: Laboratory Tests 11/13/23 11/13/23 11/14/23 07:19 07:24 05:51 WBC 9.1 RBC 4.75 Hgb 12.6 Hct 38.8 MCV 81.7 MCH 26.5 L MCHC 32.5 RDW 12.9 Plt Count 521 H D MPV 9.7 Immature Gran % (Auto) 0.2 Neut % (Auto) 68.8 Lymph % (Auto) 24.5 Wirt % (Auto) 5.2 Eos % (Auto) 1.0 Baso % (Auto) 0.3 Lymph # (Auto) 2.2 Wirt # (Auto) 0.5 Eos # (Auto) 0.1 Baso # (Auto) 0.0 Abs Immat Gran (auto) 0.02 Absolute Neuts (auto) 6.3 Absolute Nucleated RBC 0.000 Nucleated RBC % (auto) 0.0 Sodium 139 Potassium 5.0 D Chloride 99 Carbon Dioxide 27 Anion Gap 18 BUN 18 H Creatinine 0.90 Estim Creat Clear Calc 81.0 Estimated GFR > 60 Random Glucose 116 H Calcium 10.2 D Magnesium 2.0 Total Bilirubin 0.4 0.5 Direct Bilirubin 0.2 0.3 AST 36 H 22 ALT 119 H 65 H Alkaline Phosphatase 193 H 122 H Total Protein 10.6 H 6.8 Albumin 4.0 2.7 L Lipase 14 Urine Color Dark Yellow Urine Appearance Turbid Urine pH 5.0 Ur Specific Emmons >= 1.030 H Urine Protein 100 (2+) H Urine Glucose (UA) Negative Urine Ketones Trace Urine Blood Large (3+) H Urine Nitrite Negative Ur Leukocyte Esterase Moderate (2+) H Urine RBC 11-20 H Urine WBC >50 H Ur Squamous Epith Cells >20 Urine Bacteria 4+ Hyaline Casts >20 Urine Test NEGATIVE COVID-19 (SÁNCHEZ) Negative COVID-19 Clin Com See Note Influenza Type A (GIOVANI) Negative Influenza Type B (GIOVANI) Negative Influenza A & B Note See Note Airway Mallampati Class: II TM Dist: >3cm Neck ROM: Full Heart: rrr Lungs: cta Assessment and Plan Assessment Anesthesia Assessment: Anesthesia Plan Discussed and Chart Reviewed Final Anesthetic Review Family History of Problems with Anesthesia: No History of Problems with Anesthesia: No NPO: Yes ASA Class: II Final Preanesthetic Review: No Changes in Pt Med Stat, Meds/Allgs Chart Reviewed and Consent Obtained/Reviewed Patient Risk: Intermediate Procedure Risk: Intermediate Anesthetic Plan Anesthetic Plan: GA Disposition: Standard PACU
--- NOTE | 2023-11-14 16:09 | W.PM.OPN ---
Operative Note Operative Note Date of Service: 11/14/23 Narrative: Description: Endoscopic retrograde cholangiopancreatography (ERCP) PROCEDURE: 1/ EGD with pyloric wire guided balloon dilation 2/ Endoscopic retrograde cholangiopancreatography with sphincterotomy, balloon dilation and stent placement, intra op cholangiogram INDICATION FOR THE PROCEDURE: Patient with a history of cholecystectomy and concern for bile leak on HIDA and CT imaging. MEDICATIONS: General anesthesia, rectal indomethacin 100 mg, The risks of the procedure were made aware to the patient and consisted of medication reaction, bleeding, perforation, aspiration, and post ERCP pancreatitis. DESCRIPTION OF PROCEDURE: After informed consent and appropriate sedation, the duodenoscope was inserted into the oropharynx, down the esophagus, and into the stomach. The scope was then advanced through the stomach. I was unable to advance the scope due to abnormal pyloric appearance and what appeared to be extrinsic compression. I swapped to an upper scope and using a wire dilated the pylorus to 19 mm. I also placed a biliary wire into the second part of the duodenum and withdrew the scope leaving the wire in situ. I then switched back to the ERCP scope and using the wire as a guide was able to manipulate the ERCP scope into the duodenum and achieved an excellent position. The ampulla was noted and the bile duct was cannulated on the first pass. A cholangiogram was performed and there was a possibility of a leak in the right hepatic duct ? duct of luschka. A sphincterotomy was performed and then the papilla was dilated to 8 mm using a hurricaine balloon. After that a 8.5 Fr x 9 cm stent was placed with good drainage noted. There was some minor oozing which had ceased by the end of the procedure. The stomach was then decompressed and the endoscope was withdrawn. FINDINGS: 1. gastric outlet obstruction, probably external from pancreas 2. Possible bile elak s/p stent placement RECOMMENDATIONS: 1. NPO except ice chips for next 4-6 hrs then clears as tolerated, can advance diet tomorrow if feels well but would start with fluids 2. MRI with contrast to eval pancreas in more detail
[2023-11-14] MEDS: 0.9 % Sodium Chloride Flush 3 ML SYRINGE IVFLUSH (16:38)
[2023-11-14] MEDS: Pantoprazole Sodium 40 MG/10 ML VIAL IVPUSH (17:24)
[2023-11-15] MEDS: Acetaminophen 1,000 MG/100 ML PIGGYBACK 400 MG IV (01:30)
[2023-11-15 04:00] VITALS: BP 129/75; PULSE 68; RESP 16; TEMP 36.4; O2SAT 100
[2023-11-15] MEDS: Piperacillin Sodium/Tazobactam 3.375 GM in 0.9 % Sodium Chloride 50 ML IV ×4 (05:37→21:41)
[2023-11-15] MEDS: Dextrose 5 % and Lactated Ring 1,000 ML 125 ML IVCONT (05:37)
[2023-11-15] MEDS: Pantoprazole Sodium 40 MG/10 ML VIAL IVPUSH ×2 (05:37→16:45)
[2023-11-15 07:15] VITALS: BP 106/64; PULSE 53; RESP 16; TEMP 36.7; O2SAT 100
--- NOTE | 2023-11-15 07:43 | P.PNGS_ITS ---
Subjective Subjective Date of Service: 11/15/23 Interval history: Overall Myranda feels much improved today with decreased abdominal pain. She reports feeling hungry 1st time. Reports having a bowel movement and passing urine. Reviewed findings of she the EGD and ERCP. MRI requested. Physical Exam 2 Vital Signs: Vital Signs: Last Vital Signs Temp 98.0 F 11/15/23 07:15 Pulse 53 11/15/23 07:15 Resp 16 11/15/23 07:15 BP 106/64 11/15/23 07:15 Pulse Ox 100 11/15/23 07:15 O2 Del Method Room Air 11/15/23 07:15 BMI result Body Mass Index 22.3 Const: General: comfortable Nutritional Appearance: thin O rientation/consciousness: patient oriented x3 Limitations: no limitations Resp: Effort & Inspection: normal respiratory effort, no audible wheezes, no cough and no respiratory distress GI: Inspection: Yes normal to inspection Palpation (GI): Soft to palpation, nontender, no guarding and not rigid Percussion: Yes normal to percussion Skin: Other: Warm, dry, no rash Neuro: General: patient oriented x3 Extrem: General: No edema Objective Data Active Medications Fentanyl (Fentanyl Citrate/Pf 100 Mcg/2 Ml Vial) 50 mcg IVPUSH Q5M PRN; Protocol PRN Reason: Pain, Severe (Pain Scale 7-10) Hydromorphone HCl (Hydromorphone Hcl 0.5 Mg/0.5 Ml Syringe) 0.5 mg IVPUSH Q3H PRN; Protocol PRN Reason: Pain, Severe (Pain Scale 7-10) Dextrose/Lactated Ringer's (D5lr) 1,000 mls @ 125 mls/hr IVCONT .Q8H [facility] Last Admin: 11/15/23 05:37 Dose: 125 mls/hr Documented By: TAMEKA Acetaminophen (Ofirmev) 1,000 mg in 100 mls @ 400 mls/hr IV Q6H PRN PRN Reason: Pain, Moderate(Pain Scale 4-6) Last Infusion: 11/15/23 01:55 Dose: Infused Documented By: TAMEKA Piperacillin Sod/Tazobactam (Sod 3.375 gm/ Sodium Chloride) 50 mls @ 100 mls/hr IV Q6H [facility] Last Infusion: 11/15/23 06:37 Dose: Infused Documented By: TAMEKA Methadone HCl (Methadone Hcl 20 Mg/2 Ml Oral.Conc) 30 mg PO DAILY [facility] Last Admin: 11/14/23 09:14 Dose: 30 mg Documented By: VIRGINIE Ondansetron HCl (Ondansetron Hcl 4 Mg/2 Ml Vial) 4 mg IVPUSH QID PRN PRN Reason: Nausea Ondansetron HCl (Ondansetron Hcl 4 Mg/2 Ml Vial) 4 mg IVPUSH ONCE PRN PRN Reason: Nausea and Vomiting Pantoprazole Sodium (Pantoprazole Sodium 40 Mg/10 Ml Vial) 40 mg IVPUSH BID@0630,1630 [facility] Last Admin: 11/15/23 05:37 Dose: 40 mg Documented By: TAMEKA Sodium Chloride (0.9 % Sodium Chloride Flush 3 Ml Syringe) 3 ml IVFLUSH QSHIFT [facility] Last Admin: 11/14/23 22:35 Dose: Not Given Documented By: TAMEKA Non-Admin Reason: IV Running Zolpidem Tartrate (Zolpidem Tartrate 5 Mg Tablet) 5 mg PO BEDTIME PRN PRN Reason: Insomnia Labs 11/13/23 07:19 11/13/23 07:19 Microbiology Microbiology Results: Microbiology 11/13/23 Unknown Urine Culture - Final Urine clean catch - Urine burton top Procedures Date of Service Date of Service: 11/15/23 Progress Note: A&P Assessment and plan (1) Gastric out let obstruction: Status: Acute (2) Cystic duct leak: Status: Acute Plan Patient reports feeling much improved this morning, denies abdominal pain. Reports feeling hungry. Reviewed the findings of EGD and ERCP. MR of the abdomen is been requested. Begin clear liquids after MR. Recheck laboratories and UA in morning. Time Spent With Patient Time: Total time managing care of this patient today ____ minutes. Quality Stroke Does the patient have a stroke diagnosis?: No VTE Prior VTE?: No VTE Risk Level:: Surgical - low VTE Device Contraindication: N/A - Device Ordered VTE Drug Contraindication: Treatment Not Indicated
[2023-11-15] MEDS: methADONE HCl 20 MG/2 ML ORAL.CONC 30 MG PO (09:04)
--- NOTE | 2023-11-15 11:58 | HO.POSTANES ---
Post Anesthesia Evaluation Post Anesthesia Evaluation Date of Service: 11/15/23 Vital Signs: Vital Signs Temp Pulse Resp BP Pulse Ox O2 Del Method 11/15/23 07:15 98.0 F 53 16 106/64 100 Room Air 11/15/23 04:00 97.6 F 68 16 129/75 100 Room Air Anesthesia: General Endotracheal-GETA Mental Status: Awake Pain Control: Satisfactory Nausea/Vomiting: None Hydration: Adequate Anesthesia-Related Issues: No Anes. Related Issues
[2023-11-15 12:44] LABS: Appearance Urine Clear; Color Urine Yellow; Glucose Urine UA Negative (Negative); Leukocyte Esterase Urine Trace (Negative); Nitrite Urine Negative (Negative); Specific Gravity - Urine <= 1.005 (1.005-1.025); UMIC TRIGGER UA YES; Urine Blood Negative (Negative); Urine Ketones Negative (Negative); Urine Protein Negative (Neg-Trace)
[2023-11-15] MEDS: gadobutroL 7.5 ML VIAL IVPUSH (13:15)
[2023-11-15 13:25] LABS: Bacteria Urine None Seen (None Seen); Hyaline Casts Urine 0-2 /LPF (0-2); RBC Urine 0-2 /HPF (0-2); WBC Urine 0-5 /HPF (0-5)
[2023-11-15 14:55] VITALS: BP 134/94; PULSE 51; RESP 19; TEMP 36.6; O2SAT 96
[2023-11-15 18:58] VITALS: BP 135/95; PULSE 66; RESP 18; TEMP 36.5; O2SAT 95
[2023-11-16] MEDS: 0.9 % Sodium Chloride Flush 3 ML SYRINGE IVFLUSH ×2 (00:13→09:10)
[2023-11-16 04:00] VITALS: BP 137/97; PULSE 68; RESP 18; TEMP 36.4; O2SAT 93
[2023-11-16] MEDS: Piperacillin Sodium/Tazobactam 3.375 GM in 0.9 % Sodium Chloride 50 ML IV (04:05)
[2023-11-16 05:39] LABS: Hemoglobin 10.9 g/dl (12.0-16.0); Mean Corpuscular Hemoglobin 26.8 pg (27.0-33.0); Mean Corpuscular Volume 81.3 fL (80.0-98.0); Mean Platelet Volume 9.8 fL (9.4-12.3); Platelet Count 375 X10*3/uL (160-400); Red Blood Count 4.06 X10*6/uL (4.20-5.50); Red Cell Distribution Width 12.7 % (11.0-16.0)
[2023-11-16 05:50] LABS: Anion Gap 12 (12-20); Blood Urea Nitrogen 5 mg/dL (9-16); Calcium 8.4 mg/dL (8.4-10.2); Carbon Dioxide 28 mmol/L (22-29); Chloride 106 mmol/L (96-108); Creatinine Clr Calc Pharmacy 87.9; Estimated Glomerular Filt Rate > 60; Glucose Random 67 mg/dL (60-115); Potassium 3.3 mmol/L (3.3-5.1); Sodium 143 mmol/L (135-145)
[2023-11-16] MEDS: Pantoprazole Sodium 40 MG/10 ML VIAL IVPUSH (06:05)
[2023-11-16 07:00] LABS: Alanine Aminotransferase 53 U/L (0-31); Albumin Level 3.1 g/dL (3.5-5.0); Alkaline Phosphatase 118 U/L (39-117); Aspartate Amino Transferase 20 U/L (5-31); Bilirubin Direct < 0.2 mg/dL (0.0-0.5); Bilirubin Total 0.2 mg/dL (0.0-1.0); Total Protein 7.6 g/dL (6.5-8.0)
[2023-11-16 07:23] VITALS: BP 117/79; PULSE 51; RESP 16; TEMP 36.8; O2SAT 99
--- NOTE | 2023-11-16 08:28 | PM.PNGS ---
Subjective Subjective Date of Service: 11/16/23 Interval history: Patient feels very well with no abdominal pain, distention, nausea or vomiting. She was able to tolerate a regular diet yesterday without increase in pain, nausea or vomiting. She feels ready for discharge to home. Physical Exam Vital Signs: Vital Signs: Last Vital Signs Temp 98.2 F 11/16/23 07:23 Pulse 51 11/16/23 07:23 Resp 16 11/16/23 07:23 BP 117/79 11/16/23 07:23 Pulse Ox 99 11/16/23 07:23 O2 Del Method Room Air 11/16/23 07:23 BMI result Body Mass Index 22.3 Const: General: no acute distress Nutritional Appearance: well nourished Orientation/consciousness: patient oriented x3 Resp: Effort & Inspection: normal respiratory effort GI: Inspection: Yes normal to inspection Palpation (GI): Soft to palpation, nontender, no guarding and not rigid Percussion: Yes normal to percussion Auscultation: normal bowel sounds Neuro: General: patient oriented x3 Extrem: General: No edema Objective Data Active Medications Hydromorphone HCl (Hydromorphone Hcl 0.5 Mg/0.5 Ml Syringe) 0.5 mg IVPUSH Q3H PRN; Protocol PRN Reason: Pain, Severe (Pain Scale 7-10) Piperacillin Sod/Tazobactam (Sod 3.375 gm/ Sodium Chloride) 50 mls @ 100 mls/hr IV Q6H [facility] Last Infusion: 11/16/23 04:39 Dose: Infused Documented By: ARTURO Methadone HCl (Methadone Hcl 20 Mg/2 Ml Oral.Conc) 30 mg PO DAILY [facility] Last Admin: 11/15/23 09:04 Dose: 30 mg Documented By: VIRGINIE Ondansetron HCl (Ondansetron Hcl 4 Mg/2 Ml Vial) 4 mg IVPUSH QID PRN PRN Reason: Nausea Pantoprazole Sodium (Pantoprazole Sodium 40 Mg/10 Ml Vial) 40 mg IVPUSH BID@0630,1630 [facility] Last Admin: 11/16/23 06:05 Dose: 40 mg Documented By: KOKI Sodium Chloride (0.9 % Sodium Chloride Flush 3 Ml Syringe) 3 ml IVFLUSH QSHIFT [facility] Last Admin: 11/16/23 00:13 Dose: 3 ml Documented By: KOKI Zolpidem Tartrate (Zolpidem Tartrate 5 Mg Tablet) 5 mg PO BEDTIME PRN PRN Reason: Insomnia Labs 11/16/23 05:13 11/16/23 05:13 Labs: Laboratory Results - last 24 hr 11/15/23 11/16/23 12:13 05:13 MCV 81.3 MCH 26.8 L MCHC 33.0 RDW 12.7 Plt Count 375 D MPV 9.8 Absolute Nucleated RBC 0.000 Nucleated RBC % (auto) 0.0 Anion Gap 12 Estim Creat Clear Calc 87.9 Estimated GFR > 60 Random Glucose 67 Calcium 8.4 D Total Bilirubin 0.2 Direct Bilirubin < 0.2 AST 20 ALT 53 H Alkaline Phosphatase 118 H Total Protein 7.6 Albumin 3.1 L Urine Color Yellow Urine Appearance Clear Urine pH 8.0 Ur Specific [place] <= 1.005 Urine Protein Negative Urine Glucose (UA) Negative Urine Ketones Negative Urine Blood Negative Urine Nitrite Negative Ur Leukocyte Esterase Trace H Urine RBC 0-2 Urine WBC 0-5 Ur Squamous Epith Cells 3-5 Urine Bacteria None Seen Hyaline Casts 0-2 Procedures Date of Service Date of Service: 11/16/23 Progress Note: A&P Assessment and plan (1) Opioid use disorder: Status: Acute Assessment and Plan: Continue methadone at 30mg/day. Follow-up with outpatient clinic. (2) Gastric out let obstruction: Status: Acute Assessment and Plan: Gastric outlet obstruction improved after endoscopic dilatation, awaiting MR results. (3) Cystic duct leak: Status: Acute Assessment and Plan: Status post ERCP with stent placement. She will follow-up with Dr. Moy for ERCP and stent removal in approximately 8 weeks. (4) Nausea & vomiting: Status: Acute Assessment and Plan: Resolved (5) Abdominal pain: Status: Acute Assessment and Plan: Resolved Plan Discharge to home and follow-up in office in approximately 1 week. Follow-up with Dr. Moy for stent removal. Patient encouraged to call for increased abdominal pain, nausea or vomiting or any new symptoms. Time Spent With Patient Time: Total time managing care of this patient today ____ minutes. Quality Stroke Does the patient have a stroke diagnosis?: No VTE Prior VTE?: No VTE Risk Level:: Surgical - low VTE Device Contraindication: N/A - Device Ordered VTE Drug Contraindication: Treatment Not Indicated
--- NOTE | 2023-11-16 08:37 | PM.GIPN ---
Subjective Subjective Date of Service: 11/16/23 Interval History: Doing well after ERCP and pyloric dilation no abdominal pain no nausea passing stool and gas eating PO diet Critical Care Time (minutes): 0 Physical Exam Vital Signs: Vital Signs: Last Vital Signs Temp 98.2 F 11/16/23 07:23 Pulse 51 11/16/23 07:23 Resp 16 11/16/23 07:23 BP 117/79 11/16/23 07:23 Pulse Ox 99 11/16/23 07:23 O2 Del Method Room Air 11/16/23 07:23 BMI result Body Mass Index 22.3 EXAM: GENERAL: The patient is well developed and nontoxic. VITAL SIGNS:see workflow HEENT: Nonicteric sclerae, PERRLA, EOMI. Oropharynx clear. Moist mucous membranes. Conjunctivae appear well perfused. No thyroid mass. CHEST: Chest wall is nontender. HEART: Regular rate and rhythm without murmurs. LUNGS: Clear to auscultation bilaterally. ABDOMEN: Soft, positive bowel sounds, nontender, no organomegaly.no flank tenderness SKIN: No rash, no excessive bruising, petechiae, or purpura. NEUROLOGIC: Cranial nerves II-XII intact without motor/sensory deficit. Psych: Appearance: grossly normal Objective Data Labs 11/16/23 05:13 11/16/23 05:13 Labs: Laboratory Results - last 24 hr 11/15/23 11/16/23 12:13 05:13 WBC 8.0 RBC 4.06 L Hgb 10.9 L Hct 33.0 L MCV 81.3 MCH 26.8 L MCHC 33.0 RDW 12.7 Plt Count 375 D MPV 9.8 Absolute Nucleated RBC 0.000 Nucleated RBC % (auto) 0.0 Sodium 143 Potassium 3.3 D Chloride 106 Carbon Dioxide 28 Anion Gap 12 BUN 5 L Creatinine 0.83 Estim Creat Clear Calc 87.9 Estimated GFR > 60 Random Glucose 67 Calcium 8.4 D Total Bilirubin 0.2 Direct Bilirubin < 0.2 AST 20 ALT 53 H Alkaline Phosphatase 118 H Total Protein 7.6 Albumin 3.1 L Urine Color Yellow Urine Appearance Clear Urine pH 8.0 Ur Specific [place] <= 1.005 Urine Protein Negative Urine Glucose (UA) Negative Urine Ketones Negative Urine Blood Negative Urine Nitrite Negative Ur Leukocyte Esterase Trace H Urine RBC 0-2 Urine WBC 0-5 Ur Squamous Epith Cells 3-5 Urine Bacteria None Seen Hyaline Casts 0-2 Microbiology Microbiology Results: Microbiology 11/13/23 Unknown Urine clean catch - Urine bur[place] top Urine Culture - Final Procedures Date of Service Date of Service: 11/16/23 Progress Note: A&P Assessment and plan (1) Gastric out let obstruction: Status: Acute (2) Cystic duct leak: Status: Acute Plan 1/ 28 yr old lady s/p cholecystectomy with post op pain now s/p ERCP with stent after concern for bile leak, 2/ Gastric outlet obstruction possibly from pancreatitis or medication, acute gastroparesis, better PLAN: 1/ Advance diet 2/ mobilize 3/ remove stent in 2 months or so, advised to come to ED [facility] if any jaundice, chills, fever in case of stent occlusion 4/ recommend sending her home on PPI and I advised her to avoid excessive use of NSAIDs, can use tylenol within the recommended limits for pain if needed or the occasional excedrin Time Spent With Patient Time: Total time managing care of this patient today ____ minutes. Quality Stroke Does the patient have a stroke diagnosis?: No VTE Prior VTE?: No VTE Risk Level:: Surgical - low VTE Device Contraindication: N/A - Device Ordered VTE Drug Contraindication: Treatment Not Indicated
--- NOTE | 2023-11-16 08:45 | MHC.CM.PN ---
EMR reviewed. Patient medically cleared for dc home self care. RN will provide last dose letter. Patient will take shuttle home.
[2023-11-16] MEDS: methADONE HCl 20 MG/2 ML ORAL.CONC 30 MG PO (09:08)
--- NOTE | 2023-11-21 13:41 | P.DS_ITS ---
DS: Providers Provider Date of Service: 11/16/23 Date of admission: 11/13/23 12:19 Date of discharge: 11/16/23 Primary care physician: Unknown Physician Attending physician on admission: Nolberto Frost Consults: 11/13/23 15:10 Consult to Gastroenterology Routine Consulting Provider: Manuela Khan Reason for consultation: Gastric dilation, small bile leak after Lap Della Attending physician on discharge: Nolberto Frost DS: Diagnosis Discharge Diagnosis (1) Gastric out let obstruction: Status: Acute (2) Cystic duct leak: Status: Acute DS: Summary Hospital Course Hospital Course: HPI AT ADMISSION: Myranda Peña is a 28 year old female with a previous history of polysubstance abuse presenting to the emergency department with complaints of abdominal pain, nausea and vomiting times 14 days. Patient is status post laparoscopic cholecystectomy on 10/22/2023 with a findings of acute cholecystitis due to cholelithiasis. Patient was subsequently discharged home on postoperative day 1. The patient reports that for the past 14 days she has been unable to tolerate any solid food but is only able to tolerate clear liquids. She has not return for a postoperative visit to the office. She denies fever, chills, diarrhea or constipation. She does have nausea and vomiting. Workup in the emergency department revealed normal WBC however transaminases were mildly elevated. A CT abdomen and pelvis was significant for a massively distended stomach and a small collection of fluid at the gallbladder fossa. Findings were suggestive of gastroparesis verses gastric outlet obstruction and possible bile leak. Nasogastric tube was placed in the emergency department. HOSPITAL COURSE: She is being admitted to the surgical service for further management. HIDA scan has been ordered and is pending at the time of this dictation. GI consult was obtained who recommended ERCP for sphincterotomy, possible stent placement for management. On 11/14/23, EGD with pyloric wire guided balloon dilation for gastric outlet obstruction likely secondary to her pancreas/meds and Endoscopic retrograde cholangiopancreatography with sphincterotomy, balloon dilation and stent placement, intra op cholangiogram was performed by Dr. Moy without immediate complications. Patient tolerated p rocedure well. MRI abdomen with contrast was recommended to further evaluate the pancreas. Her NGT was removed following this as she had little output. MRCP showed no focal pancreatic lesion. Her diet was advanced to clear liquids and then solids following this. Her abdominal pain improved and resolved. She was tolerating a solid diet without nausea or vomiting. Her vitals were stable and abd was benign. She felt well and ready for discharge to home. She was discharged to home on 11/16/23. She was discharged on Methadone 30mg PO daily and Omeprazole 20mg PO daily. She is to follow up in the office with Dr. Frost in [address] Moy in 6-8 weeks for stent removal. Status at Discharge Functional status at discharge: independent ambulation Overall status at discharge: patient is progressing back to baseline Time Attestation Discharge coordination time: Less than 30 minutes Quality: Safe Use of Opioids Does Pt have an Active Cancer Diagnosis on the Problem List?: No Quality: Stroke Does the patient have a stroke diagnosis?: No Physical Exam Vital Signs: Vital Signs: Last Vital Signs Temp 98.2 F 11/16/23 07:23 Pulse 51 11/16/23 07:23 Resp 16 11/16/23 07:23 BP 117/79 11/16/23 07:23 Pulse Ox 99 11/16/23 07:23 O2 Del Method Room Air 11/16/23 07:23 BMI result Body Mass Index 22.3 Resp: Effort & Inspection: normal respiratory effort GI: Inspection: No distended Palpation (GI): Soft to palpation, nontender, no guarding and not rigid Skin: General skin exam: no rashes or lesions noted and no jaundice DS: Data Data Completed and Pending Completed studies during hospitalization [Text1]: Procedures Dilation of Common Bile Duct with Intraluminal Device, Via Natural or Artificial Opening Endoscopic (11/13/23) Dilation of Stomach, Pylorus, Via Natural or Artificial Opening Endoscopic (11/13/23) Fluoroscopy of Bile Ducts using Low Osmolar Contrast (11/13/23) Resection of Gallbladder, Percutaneous Endoscopic Approach (10/19/23) Discharge Plan Discharge Anticipated Discharge Date/Time: 11/16/23 08:18 Patient Disposition: Home, Self-Care Discharge Diagnosis: Gastric outlet obstruction, Bile leak Referrals: Yaneth Menjivar FNP [Nurse Practitioner] - 02/19/24 3:40 pm (You have a new patient appointment schedule. If you can not make this appointment please call the office to reschedule. ) Kvng Moy MD [Physician] - 3 Weeks Nolberto Frost MD [Physician] - 1 Week PhysicianYang [Primary Care Provider] - 11/30/23 11:20 am (You have a foll ow visit schedule with Yaneth Menjivar at the [facility]. [address] [place] [address], if you need to reschedule call the office [phone]) Discharge Medications: New omeprazole 20 mg capsule,delayed release(DR/EC) 20 mg PO DAILY Qty: 30 0RF methadone [Methadose] 10 mg/mL Concentrate 30 mg PO DAILY Qty: 0 0RF Rx Instructions: Partial Fill upon patient request. Discontinued methadone [Methadone Intensol] 10 mg/mL Concentrate 60 mg PO DAILY Discharge Orders: Discharge Order (Routine); Ordered 11/16/23 Ordered By: Nolberto Frost Diet: Advance to usual diet Activity on Discharge: As tolerated Stand Alone Forms: Patient Portal Discharge page Care Plan Goals: Return to her normal diet and activity. Health Concerns: Nausea, vomiting, abdominal pain Plan of Treatment: Nasogastric tube decompression, ERCP, stent placement Assessment: Small bile leak following cholecystectomy Gastric outlet obstruction requiring dilatation Discharge Date/Time: 11/16/23 09:45
== END 2023-11-16 09:45 | disposition home or self-care (01) | DRG 254 ==
LOC: HO.ED 10:27 → HO.EDOVER 12:28 → HO.S3 13:41
PROVIDERS: Internal Medicine Gastroenterology; Physician Assistant; Admitting Provider Surgery; Emergency Provider Emergency Medicine Emergency Medical Services; Visit Provider Surgery
PROC: 0F798DZ Dilation of Common Bile Duct with Intraluminal Device, Via Natural or Artificial Opening Endoscopic (ICD-10-PCS; CPT 43260; principal; 2023-11-14 16:10)
DX: K31.1 Adult hypertrophic pyloric stenosis (principal); F11.20 Opioid dependence, uncomplicated; K91.89 Other postprocedural complications and disorders of digestive system; F19.10 Other psychoactive substance abuse, uncomplicated; Z20.822 Contact with and (suspected) exposure to COVID-19; Z79.899 Other long term (current) drug therapy
CPT/HCPCS: 36415; 71045; 74177; 74183; 78226; 80048; 80076; 81001; 81025; 83690; 83735; 85025; 85027; 87086; 87502; 87635; 99285; A9537; A9585; C1726; C1769; C2617; C9113; J0131; J1100; J2060; J2250; J2405; J2543; J2704; J2765; J3010; Q9967

== ENCOUNTER → 2023-11-13 12:19 | Outpatient (BNV) | payer MEDICAID, SELFPAY | PROVIDERS: Admitting Provider Surgery; Emergency Provider Emergency Medicine Emergency Medical Services; Visit Provider Surgery | DX: K31.1 Adult hypertrophic pyloric stenosis (principal); K82.8 Other specified diseases of gallbladder | CPT/HCPCS: 99024; 99212 ==

== ENCOUNTER → 2023-11-13 12:19 | Outpatient (BNV) | payer MEDICAID, SELFPAY | PROVIDERS: Admitting Provider Surgery; Emergency Provider Emergency Medicine Emergency Medical Services; Visit Provider Internal Medicine | DX: K82.8 Other specified diseases of gallbladder (principal); K31.1 Adult hypertrophic pyloric stenosis; R11.2 Nausea with vomiting, unspecified; F11.90 Opioid use, unspecified, uncomplicated | CPT/HCPCS: 43274; 99222; 99232 ==

== ENCOUNTER 2023-12-01 16:54 | Emergency (ER) | payer MEDICAID, SELFPAY ==
[2023-12-01 17:10] VITALS: BP 150/90; BP 152/105; PULSE 109; PULSE 120; RESP 22; TEMP 38; O2SAT 98; BMI 22.3
--- NOTE | 2023-12-01 17:49 | HE.PHANOTE ---
METHADONE patient recieves methadone from [facility], , last doses 11/30 @711 am at 30 mg
--- NOTE | 2023-12-01 17:55 | ED_ITS ---
HPI - General Adult General Chief complaint: Psychiatric Symptoms Stated complaint: CRISIS,NO SLEPT IN 8 DAYS, USED COCAINE Time Seen by Provider: 12/01/23 17:08 Source: patient Mode of arrival: ambulatory Limitations: no limitations History of Present Illness HPI narrative: 28-year-old female history of heroin cocaine abuse and depression presents to ED for concerns about being expossed to HIV and also having lesions/sores on her vagina. The patient last had sex with her boyfriend 1 week ago and since then states having painful sores on her genitals. Patient thinks her boyfriend has HIV. As per nurse patient was brought in by EMS for evaluation. Guillermo saw her and was concerned that she made harmful statements about harming herself. Patient denies any harmful statements. Patient admits to history crack cocaine heroin and would like detox. Related Data Previous Rx's Medication Instructions Recorded methadone 10 mg/mL oral 30 mg (3 mL) PO DAILY #0 mL 11/16/23 concentrate (Methadose) Allergies Allergy/AdvReac Type Severity Reaction Status Date / Time No Known Allergies Allergy Verified 11/13/23 07:14 [No Known Allergies*] Review of Systems 2 Review of Systems: Painful vaginal lesions. Unprotected sex 1 week ago Yes all other systems are reviewed and are negative PMFSH Past Medical History Medical History Gastric out let obstruction Cystic duct leak Opioid use disorder IV drug abuse Surgical History (Updated 11/14/23 @ 09:39 by Soo Spencer) History of cholecystectomy Social History Social History Household Members: Family Housing: House Do you presently have visiting nurse or other home services: No Alcohol intake: never Comment: counts correct Patient Tobacco Use Status: Never used Tobacco Second Hand Smoke Exposure: No Substance Use Type: Marijuana Advance Directives: Yes Advance Directives on File: Yes Advance Directives Date on File: 11/20/23 service: No Physical Exam ED Vital Signs: Vital Signs - 24 hr 12/01/23 17:10 12/01/23 19:53 12/02/23 00:34 Temperature 100.4 F 98.0 F 97.9 F Pulse Rate 109 H 91 83 Respiratory Rate 22 H 18 18 Blood Pressure 152/105 H 111/66 102/76 Pulse Oximetry 98 95 97 Oxygen Delivery Method Room Air Room Air Room Air BMI result Body Mass Index 22.3 Const General: cooperative, healthy appearing, comfortable, no acute distress, well developed, alert and awake Orientation/consciousness: oriented to person, oriented to place, oriented to time and patient oriented x3 HENKY Head: Yes normal to inspection, Yes No palpable skull fracture present, Yes normocephalic, Yes atraumatic and No abrasion Eyes General: appearance normal, both eyes and all related structures Neck Neck: Yes normal visual inspection, Yes full ROM, Yes no lymphadenopathy, Yes no meningeal signs, Yes trachea midline, Yes supple, No anterior neck swelling and No tender Chest Chest palpation & inspection: normal inspection of the chest and normal palpation of entire chest wall Resp Effort & Inspection: normal respiratory effort and able to speak in complete sentences Auscultation: clear to auscultation bilaterally Cardio Jugular venous distension: no JVD Heart sounds: S1 normal heart sound present and S2 normal heart sound present GI Inspection: Yes normal to inspection Palpation (GI): Soft to palpation, not firm, nontender, no guarding and not rigid General: Yes no CVA tenderness Speculum Exam - Vagina: abnormal vaginal discharge white Speculum Exam - Cervix: normal appearance of the cervix Bimanual exam- vagina & uterus: normal bimanual exam Bimanual Exam- Adnexa, other: normal adnexae Female genitals images: 2 1. lesion. non vesciluar or scaly. slightly erythamtous. No abscess or fluctuance. No mass on palpation. Not suspecting Bartholin cyst or abscess Back/Spine/Pelvis Back: no CVA tenderness and No back tenderness Skin General skin exam: no rashes or lesions noted, elasticity normal and turgor normal Neuro General: oriented to person, oriented to place, oriented to time, patient oriented x3, gait normal, tone normal, moves all extremities, Normal light touch and pain sensation, no meningeal signs, no focal motor deficits, CN's II-XI intact bilaterally and normal sensation to monofilament Extrem General: Yes normal to inspection and Yes full ROM Psych Appearance: grossly normal, well kempt and not disheveled Medications Administered Discontinued Medications Generic Name Dose Route Start Last Admin Trade Name Freq PRN Reason Stop Dose Admin Ceftriaxone Sodium 500 mg/ 0 mg 12/01/23 19:35 12/01/23 21:01 Lidocaine HCl 1 ml IM 12/01/23 19:36 1 kit ONCE ONE Administration Diphenhydramine HCl 50 mg 12/01/23 22:01 12/01/23 22:03 Diphenhydramine Hcl 25 Mg Capsule PO 12/01/23 22:02 50 mg ONCE ONE Administration Doxycycline Monohydrate 100 mg 12/01/23 19:35 12/01/23 22:03 Doxycycline Monohydrate 100 Mg Capsule PO 12/01/23 19:36 100 mg ONCE ONE Administration Penicillin G Benzathine 2,400,000 unit 12/01/23 19:38 12/01/23 21:02 Penicillin G Benzathine 2,400,000 Unit/4 Ml Syringe IM 12/01/23 19:39 2,400,000 unit ONCE ONE Administration Medical Decision Making Medical Decision Making [facility] Narrative: 28-year-old female history of depression and drug abuse presents to ED concern for exposure to STIs and EMS brought her due to passing by hearing hurting self harmful statements to herself. Labs ordered. Will do pelvic exam. Care team consult placed 1:28am. Patient given emperic treatment for STIs. Patient informed HIV testing not done in the ED she should follow up with [facility] for lab results. Swabs pending. Differential Diagnosis Differential Diagnoses: The differential diagnosis associated with the presentation includes (STIs. Depression, SI) Admission/Observation Consideration of admission/observation: Escalation of care including admission/observation considered Consult Healthcare Provider Management of the patient was discussed with: Kiln Puller (Care team) Lab Data [facility] Lab Attestation statement: I reviewed the patient's lab results. 12/01/23 18:15 12/01/23 18:15 Labs: Lab Results 12/01/23 12/01/23 Range/Units 18:15 19:41 WBC 11.7 H (4.8-10.8) X10*3/uL RBC 4.15 L (4.20-5.50) X10*6/uL Hgb 11.1 L (12.0-16.0) g/dl Hct 33.9 L (37.0-47.0) % MCV 81.7 (80.0-98.0) fL MCH 26.7 L (27.0-33.0) pg MCHC 32.7 (31.0-35.0) g/dl RDW 14.7 (11.0-16.0) % Plt Count 326 (160-400) X10*3/uL MPV 9.7 (9.4-12.3) fL Immature Gran % (Auto) 0.7 H (0.0-0.4) % Neut % (Auto) 70.1 (45-73) % Lymph % (Auto) 20.9 (20-40) % [place] % (Auto) 5.3 (2-11) % Eos % (Auto) 2.6 (0-4) % Baso % (Auto) 0.4 (0-2) % Lymph # (Auto) 2.4 (1.2-4.9) X10*3/uL [place] # (Auto) 0.6 (0.1-1.2) X10*3/uL Eos # (Auto) 0.3 (0.0-0.4) X10*3/uL Baso # (Auto) 0.1 (0.0-0.2) X10*3/uL Abs Immat Gran (auto) 0.08 H (0.00-0.03) X10*3/uL Absolute Neuts (auto) 8.2 (2.0-8.3) x10*3/uL Absolute Nucleated RBC 0.000 (0.0-0.012) X10*3/uL Nucleated RBC % (auto) 0.0 (0.0-0.2) /100WBC Sodium 139 (135-145) mmol/L Potassium 4.6 D (3.3-5.1) mmol/L Chloride 104 (96-108) mmol/L Carbon Dioxide 27 (22-29) mmol/L Anion Gap 13 (12-20) BUN 13 (9-16) mg/dL Creatinine 0.84 (0.5-1.4) mg/dL Estim Creat Clear Calc 86.9 Estimated GFR > 60 Random Glucose 90 (60-115) mg/dL Calcium 9.0 D (8.4-10.2) mg/dL Total Bilirubin 0.7 (0.0-1.0) mg/dL AST 78 H (5-31) U/L ALT 41 H (0-31) U/L Alkaline Phosphatase 119 H (39-117) U/L Total Protein 8.1 H (6.5-8.0) g/dL Albumin 3.8 (3.5-5.0) g/dL Beta HCG, Quant < 2 mIU/mL Urine Color Dark Yellow Urine Appearance Cloudy Urine pH 6.0 (5.0-9.0) Ur Specific [place] >= 1.030 H (1.005-1.025) Urine Protein 30 (1+) H (Neg-Trace) mg/dL Urine Glucose (UA) Negative (Negative) mg/dL Urine Ketones Trace (Negative) mg/dL Urine Blood Large (3+) H (Negative) Urine Nitrite Negative (Negative) Ur Leukocyte Esterase Trace H (Negative) Urine RBC >20 H (0-2) /HPF Urine WBC 0-5 (0-5) /HPF Ur Squamous Epith Cells 6-10 (0-2) /HPF Urine Bacteria 2+ (None Seen) Hyaline Casts 0-2 (0-2) /LPF Urine Test NEGATIVE (NEGATIVE) Urine Opiates Screen POSITIVE H (Not Detect) Urine Fentanyl Screen POSITIVE H (Not Detect) Ur Barbiturates Screen Not Detected (Not Detect) Ur Phencyclidine Scrn Not Detected (Not Detect) Ur Amphetamines Screen Not Detected (Not Detect) U Benzodiazepines Scrn Not Detected (Not Detect) Urine Cocaine Screen POSITIVE H (Not Detect) U Marijuana (THC) Screen POSITIVE H (Not Detect) Ethyl Alcohol < 10 mg/dL COVID-19 ([place]) Negative (Negative) COVID-19 Clin Com See Note Independent Historian Clinical information obtained from an independent historian. History obtained from or confirmed by: EMS and Other (patient) External Record Review External record reviewed: Other (Prior Visits) Discharge Plan Discharge Clinical Impression: Depression, Polysubstance (excluding opioids) dependence Patient Disposition: Still a Patient Prescriptions: No Action methadone [Methadose] 10 mg/mL Concentrate 30 mg PO DAILY Qty: 0 0RF Patient Comments: Verified by Camille Jordan RN called [facility] after hours [phone] Rx Instructions: Partial Fill upon patient request.
[2023-12-01 18:20] LABS: MANUAL DIFF FLAG NO
[2023-12-01 18:23] LABS: Appearance Urine Cloudy; Color Urine Dark Yellow; Glucose Urine UA Negative (Negative); Leukocyte Esterase Urine Trace (Negative); Nitrite Urine Negative (Negative); Specific Gravity - Urine >= 1.030 (1.005-1.025); UMIC TRIGGER UACC YES; Urine Blood Large (3+) (Negative); Urine Ketones Trace mg/dL (Negative); Urine Protein 30 (1+) mg/dL (Neg-Trace)
[2023-12-01 18:35] LABS: Bacteria Urine 2+ (None Seen); Hyaline Casts Urine 0-2 /LPF (0-2); RBC Urine >20 /HPF (0-2); WBC Urine 0-5 /HPF (0-5)
[2023-12-01 18:36] LABS: Amphetamine Screen Urine Not Detected (Not Detect); Barbiturates, Urine Not Detected (Not Detect); Benzodiazepines Screen Urine Not Detected (Not Detect); Cannabinoid Screen Urine POSITIVE (Not Detect); Cocaine Screen Urine POSITIVE (Not Detect); Fentanyl, urine POSITIVE (Not Detect); Opiate Screen Urine POSITIVE (Not Detect); Phencyclidine Screen Urine Not Detected (Not Detect)
[2023-12-01 18:39] LABS: Ethanol < 10 mg/dL
[2023-12-01 18:41] LABS: Basophils Absolute Auto 0.1 X10*3/uL (0.0-0.2); Basophils Percent Auto 0.4 % (0-2); Eosinophils Absolute Auto 0.3 X10*3/uL (0.0-0.4); Eosinophils Percent Auto 2.6 % (0-4); Hematocrit 33.9 % (37.0-47.0); Hemoglobin 11.1 g/dl (12.0-16.0); Imm Gran Abs Auto 0.08 X10*3/uL (0.00-0.03); Imm Gran Pct Auto 0.7 % (0.0-0.4); Lymphocytes Absolute Auto 2.4 X10*3/uL (1.2-4.9); Lymphocytes Percent Auto 20.9 % (20-40); Mean Corpuscular HGB Conc 32.7 g/dl (31.0-35.0); Mean Corpuscular Hemoglobin 26.7 pg (27.0-33.0); Mean Corpuscular Volume 81.7 fL (80.0-98.0); Mean Platelet Volume 9.7 fL (9.4-12.3); Monocytes Absolute Auto 0.6 X10*3/uL (0.1-1.2); Monocytes Percent Auto 5.3 % (2-11); Neutrophils Absolute Auto 8.2 x10*3/uL (2.0-8.3); Neutrophils Percent Auto 70.1 % (45-73); Platelet Count 326 X10*3/uL (160-400); Red Blood Count 4.15 X10*6/uL (4.20-5.50); Red Cell Distribution Width 14.7 % (11.0-16.0); White Blood Count 11.7 X10*3/uL (4.8-10.8)
[2023-12-01 18:46] LABS: Alanine Aminotransferase 41 U/L (0-31); Albumin Level 3.8 g/dL (3.5-5.0); Alkaline Phosphatase 119 U/L (39-117); Anion Gap 13 (12-20); Aspartate Amino Transferase 78 U/L (5-31); Bilirubin Total 0.7 mg/dL (0.0-1.0); Blood Urea Nitrogen 13 mg/dL (9-16); Carbon Dioxide 27 mmol/L (22-29); Chloride 104 mmol/L (96-108); Creatinine Clr Calc Pharmacy 86.9; Estimated Glomerular Filt Rate > 60; Glucose Random 90 mg/dL (60-115); Potassium 4.6 mmol/L (3.3-5.1); Sodium 139 mmol/L (135-145); Total Protein 8.1 g/dL (6.5-8.0)
[2023-12-01 18:52] LABS: HCG Quantitative < 2 mIU/mL
--- NOTE | 2023-12-01 19:17 | PC.NURSE ---
patient appeared to remain at rest upon t/w's arrival to unit, reality based thought process, maintains safe behavior.
--- NOTE | 2023-12-01 19:18 | PC.NURSE ---
patient taken to [facility] for pelvic exam by provider.
[2023-12-01 19:53] VITALS: BP 111/66; PULSE 91; RESP 18; TEMP 36.7; O2SAT 95
[2023-12-01 20:06] LABS: IDNOW Serial# 08D9AD1C
[2023-12-01 20:07] LABS: COVID-19 Test Negative (Negative)
[2023-12-01] MEDS: cefTRIAXone sodium 500 MG, Lidocaine HCl 1 % MPF 1 ML IM (21:01)
[2023-12-01] MEDS: Penicillin G Benzathine 2,400,000 UNIT/4 ML SYRINGE 2400000 UNIT IM (21:02)
[2023-12-01 21:26] LABS: UPreg QC Valid YES; Urine Pregnancy NEGATIVE (NEGATIVE)
[2023-12-01] MEDS: Doxycycline Monohydrate 100 MG CAPSULE PO (22:03)
[2023-12-01] MEDS: diphenhydrAMINE HCL 25 MG CAPSULE 50 MG PO (22:03)
[2023-12-02 00:34] VITALS: BP 102/76; PULSE 83; RESP 18; TEMP 36.6; O2SAT 97
--- NOTE | 2023-12-02 08:52 | MHC.RECOVRN ---
Addendum entered by Acacia Henderson 12/02/23 09:15: Currently being reviewed by [facility]. Original Note: Met with pt in [facility] after cleared by CARE Team. Pt denies SI/HI/AH/VH. Pt had presented to the ED [place], concerns of HIV, and cocaine use. Pt laying in bed, asleep, wakes to voice. Pt reports using heroin/fentanyl, 1 bundle daily, IN, as well as cocaine, 10 capsules daily, IN. Pt is interested in [facility]. T/w will send referral. Pt denies other questions or concerns.
[2023-12-02 09:30] LABS: CT PCR NOT DETECTED (Not Detect.); NG PCR NOT DETECTED (Not Detect.)
[2023-12-02 09:38] LABS: CT PCR NOT DETECTED (Not Detect.); NG PCR NOT DETECTED (Not Detect.)
--- NOTE | 2023-12-02 10:01 | PC.NURSE ---
pt is awake and alert, pt is speaking in clear and even tones and interacting appropriatly with staff. pt has been evaluated by care team and her status is a voluntary hold for detox. pt is requesting methadone, a verification form is completed but there is no order in nov. pharmacy has been contacted.
[2023-12-02] MEDS: methADONE HCl 20 MG/2 ML ORAL.CONC 30 MG PO (10:39)
--- NOTE | 2023-12-02 11:44 | PC.NURSE ---
[facility] called to do intake on this patient.
--- NOTE | 2023-12-02 13:54 | MHC.RECOVRN ---
Pt accepted to [facility]. Pt to be transported via [facility]. Provider and RN aware.
[2023-12-02 15:29] LABS: BV Int Neg Control Negative (Negative); BV Int Pos Control Positive (Positive)
[2023-12-03 09:08] LABS: Syphilis Screen Nonreactive (Nonreactive)
== END 2023-12-02 14:20 | disposition other institution (70) ==
PROVIDERS: Physician Assistant; Emergency Provider Emergency Medicine
DX: F32.A Depression, unspecified (principal); F19.20 Other psychoactive substance dependence, uncomplicated; N76.5 Ulceration of vagina; Z11.52 Encounter for screening for COVID-19; Z72.89 Other problems related to lifestyle
CPT/HCPCS: 0353U; 36415; 80053; 80307; 81001; 81025; 84702; 85025; 86780; 87255; 87480; 87510; 87635; 87660; 96372; 99284; J0561; J0696

== ENCOUNTER 2024-01-19 23:24 | Emergency (ER) | payer MEDICAID, SELFPAY ==
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
[2024-01-19 23:34] VITALS: BP 174/110; PULSE 99; O2SAT 99; BMI 24.9
[2024-01-19 23:39] VITALS: BP 125/84; PULSE 91; RESP 17; TEMP 36.7; O2SAT 97
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
[2024-01-20 01:54] VITALS: BP 106/76; PULSE 56; RESP 16; TEMP 36.3; O2SAT 98
[2024-01-20 02:41] VITALS: BP 106/76; PULSE 56; RESP 16; TEMP 36.6; O2SAT 98
== END 2024-01-20 02:43 | disposition home or self-care (01) ==
PROVIDERS: Emergency Provider Emergency Medicine
DX: S01.81XA Laceration without foreign body of other part of head, initial encounter (principal); R51.9 Headache, unspecified; M54.2 Cervicalgia; Y29.XXXA Contact with blunt object, undetermined intent, initial encounter; Y93.9 Activity, unspecified; Y92.9 Unspecified place or not applicable; Y99.8 Other external cause status
CPT/HCPCS: 12011; 70450; 72125; 99284

== ENCOUNTER 2024-03-08 18:25 | Emergency (ER) | payer MEDICAID, SELFPAY ==
[2024-03-08 19:14] VITALS: BP 100/51; PULSE 82; RESP 20; TEMP 37.1; O2SAT 98; BMI 24.0
--- NOTE | 2024-03-08 19:14 | ED_ITS ---
HPI - General Adult General Chief complaint: General Medical Stated complaint: missed dose of methadone Time Seen by Provider: 03/08/24 19:14 Source: patient Mode of arrival: ambulatory Limitations: no limitations History of Present Illness ED Provider: Halima Arevalo PA-C HPI narrative: 28 yo female with history of opioid use disorder presents to the ER for a dose of her methadone. She goes to [facility] in [place]. Patient recently got out of rehab. She denies any recent use. She did not realize that the clinic was only up until 10:00 o'clock on Sunday. She has been clean for months. complaint: methadone dose Associated symptoms: denies other symptoms Treatments prior to arrival: none Related Data Previous Rx's ?Medication ?Instructions ?Recorded methadone 10 mg/mL oral 30 mg (3 mL) PO DAILY #0 mL 11/16/23 concentrate (Methadose) Allergies Allergy/AdvReac Type Severity Reaction Status Date / Time No Known Allergies Allergy Verified 03/08/24 19:16 [No Known Allergies*] Review of Systems Review of Systems: Yes all other systems are reviewed and are negative PMFSH Past Medical History Medical History Gastric out let obstruction Cystic duct leak Opioid use disorder IV drug abuse Surgical History History of ERCP History of cholecystectomy Social History Social History Household Members: Family Housing: House Do you presently have visiting nurse or other home services: No Alcohol intake: never Comment: counts correct Patient Tobacco Use Status: Never used Tobacco Second Hand Smoke Exposure: No Substance Use Type: Marijuana Advance Directives Date on File: 11/20/23 service: No Physical Exam ED Vital Signs: Vital Signs - 24 hr 03/08/24 19:14 Temperature 98.8 F Pulse Rate 82 Respiratory Rate 20 Blood Pressure 100/51 L Pulse Oximetry 98 Oxygen Delivery Method Room Air BMI result Body Mass Index 24.0 Appearance: Alert. Oriented X3. No acute distress. HEENT: normal inspection CVS: Normal heart rate and rhythm. Pulses normal. Respiratory: No respiratory distress. Skin: Skin warm and dry. Normal skin color. Normal skin turgor. No rashes. Extremities: normal inspection, no track perez Neuro: Oriented X 3. No motor deficit. No sensory deficit. Medical Decision Making Medical Decision Making MDM Narrative: called and spoke with nurse at [facility] - dose of 90mg methadone confirmed. She reports a slight runny nose, otherwise no acute symptoms of opioid withdrawal. She appears well. Ordered 90 mg of methadone here. Clinic updated that she is dose here. Stable for discharge. Differential Diagnosis Differential Diagnoses: The differential diagnosis associated with the presentation includes opioid use disorder, polysubstance abuse, opioid withdrawal External Record Review External record reviewed: Outpatient record and Prior outpatient labs Prescription Management I considered prescription management with: Other (Methadone) Chronic Conditions Patient?s care impacted by: Other (Opioid use disorder) Critical Care Time Critical Care Time Critical Care Time: No Discharge Plan Discharge Clinical Impression: Opioid use disorder Patient Disposition: Home, Self-Care Instructions: Opioid Use Disorder (ED) Additional Instructions: You were given 90 mg of methadone today. Follow-up with your clinic tomorrow morning for your next dose. Prescriptions: No Action methadone [Methadose] 10 mg/mL Concentrate 30 mg PO DAILY Qty: 0 0RF Patient Comments: Verified by Camille Jordan RN called [facility] after hours [phone] Rx Instructions: Partial Fill upon patient request. Print Language: Danish
--- NOTE | 2024-03-08 19:30 | HE.PHANOTE ---
RE: methadone Last dose with [facility] 90mg on 03/07/24
[2024-03-08] MEDS: methADONE HCl 20 MG/2 ML ORAL.CONC 90 MG PO (19:53)
[2024-03-08 19:56] VITALS: BP 100/51; PULSE 82; RESP 20; TEMP 37.1; O2SAT 98
== END 2024-03-08 19:58 | disposition home or self-care (01) ==
LOC: HO.ED 19:46
PROVIDERS: Emergency Provider Student in an Organized Health Care Education/Training Program
DX: F11.20 Opioid dependence, uncomplicated (principal)
CPT/HCPCS: 99282

== ENCOUNTER 2024-05-15 14:21 | Emergency (ER) | payer MEDICAID, SELFPAY ==
[2024-05-15 15:10] VITALS: BP 123/83; PULSE 82; RESP 16; TEMP 36.3; O2SAT 99; BMI 24.6
--- NOTE | 2024-05-15 15:10 | ED.GENADULT ---
HPI - General Adult General Chief complaint: General Medical Stated complaint: methadone dose Time Seen by Provider: 05/15/24 15:11 Source: patient and old records reviewed Mode of arrival: ambulatory Limitations: no limitations History of Present Illness ED Provider: Halima Arevalo PA-C HPI narrative: 28 yo female with history of opioid use disorder on methadone maintenance who presents to the ER for evaluation after she missed her methadone dose this morning. She reports increased anxiety, irritability, and fatigue. She was unable to get to the clinic on time today. She denies any IVDA in the last 2 months. She is dedicated to sobriety. She is hoping to get a dose today. She goes to [facility] clinic on [address] and last got a dose yesterday morning, 80mg. complaint: methadone dose Onset (ago): day(s) (1) Exacerbating factors: none Associated symptoms: denies other symptoms Treatments prior to arrival: none Related Data Previous Rx's ?Medication ?Instructions ?Recorded methadone 10 mg/mL oral 30 mg (3 mL) PO DAILY #0 mL 11/16/23 concentrate (Methadose) Allergies Allergy/AdvReac Type Severity Reaction Status Date / Time No Known Allergies Allergy Verified 05/15/24 15:10 [No Known Allergies*] Review of Systems Review of Systems: Yes all other systems are reviewed and are negative PMFSH Past Medical History Medical History Gastric out let obstruction Cystic duct leak Opioid use disorder IV drug abuse Surgical History History of ERCP History of cholecystectomy Social History Social History Household Members: Family Housing: House Do you presently have visiting nurse or other home services: No Alcohol intake: never Comment: counts correct Patient Tobacco Use Status: Never used Tobacco Second Hand Smoke Exposure: No Substance Use Type: Marijuana Advance Directives Date on File: 11/20/23 service: No Physical Exam ED Vital Signs: Vital Signs - 24 hr 05/15/24 15:10 Temperature 97.4 F Pulse Rate 82 Respiratory Rate 16 Blood Pressure 123/83 Pulse Oximetry 99 Oxygen Delivery Method Room Air BMI result Body Mass Index 24.6 Appearance: Alert. Oriented X3. No acute distress. Mildly diaphoretic HEENT: normal external inspection Neck: Normal inspection. CVS: Normal heart rate and rhythm. Pulses normal. Respiratory: No respiratory distress. Breath sounds normal. Skin: Skin warm and dry. Normal skin color. Normal skin turgor. No rashes. Extremities: No lower extremity edema. No joint swelling. Neuro/psych: Oriented X 3. grossly normal, nonfocal Medical Decision Making Medical Decision Making MDM Narrative: 28 yo female presenting for methadone dosing after missing dose today. mild opiate withdrawal symptoms. dose confirmed with [facility] clinic. 80 mg given at 15:45 she will follow up with clinic tomorrow stable for d/c home Differential Diagnosis Differential Diagnoses: The differential diagnosis associated with the presentation includes opiate withdrawal, opiate dependence, polysubstance abuse, etoh withdrawal External Record Review External record reviewed: Outpatient record and Prior outpatient labs Prescription Management I considered prescription management with: Other (methadone) Social Determinants Patient?s care significantly limited by Social Determinants of Health including: Problems related to primary support group and Other Social Determinant of Health Critical Care Time Critical Care Time Critical Care Time: No Discharge Plan Discharge Clinical Impression: Opioid use disorder Patient Disposition: Home, Self-Care Instructions: Opioid Use Disorder (ED) Additional Instructions: you were given 80 mg of methadone today (05/15) at 15:40 follow up with your clinic tomorrow If you develop new or worsening symptoms call 911 or come back to the ER for further evaluation. Prescriptions: No Action methadone [Methadose] 10 mg/mL Concentrate 30 mg PO DAILY Qty: 0 0RF Patient Comments: Verified by Camille Jordan RN called [facility] after hours [phone] Rx Instructions: Partial Fill upon patient request. Print Language: Japanese
--- NOTE | 2024-05-15 15:30 | HE.PHANOTE ---
METHADONE CONFIRMATION FORM LAST DOSE 80MG FROM [facility] ON 05/14/2024
[2024-05-15] MEDS: methADONE HCl 20 MG/2 ML ORAL.CONC 80 MG PO (15:42)
[2024-05-15 15:51] VITALS: BP 116/84; PULSE 88; RESP 16; TEMP 36.5; O2SAT 96
== END 2024-05-15 15:53 | disposition home or self-care (01) ==
LOC: HO.ED 15:49
PROVIDERS: Emergency Provider Emergency Medicine Emergency Medical Services
DX: F11.10 Opioid abuse, uncomplicated (principal); F41.9 Anxiety disorder, unspecified; R53.83 Other fatigue
CPT/HCPCS: 99282; 99283

== ENCOUNTER 2024-05-26 17:46 | Outpatient (REF) | payer MEDICAID, SELFPAY ==
[2024-05-27 05:45] LABS: CT PCR NOT DETECTED (Not Detect.); NG PCR NOT DETECTED (Not Detect.)
== END 2024-05-26 17:47 | disposition home or self-care (01) ==
LOC: HO.HHCLNP 17:46
PROVIDERS: Visit Provider Nurse Practitioner Family
DX: N89.8 Other specified noninflammatory disorders of vagina (principal)
CPT/HCPCS: 87086; 87088; 87186; 87491; 87591

== ENCOUNTER 2024-06-06 14:15 | Emergency (ER) | payer MEDICAID, SELFPAY ==
[2024-06-06 14:24] VITALS: BP 111/69; PULSE 69; RESP 18; TEMP 37.1; O2SAT 97; BMI 30.9
--- NOTE | 2024-06-06 14:31 | ED.GENADULT ---
HPI - General Adult General Chief complaint: General Medical Stated complaint: Missed Methodone Dosage Time Seen by Provider: 06/06/24 14:32 Source: patient Mode of arrival: ambulatory Limitations: no limitations History of Present Illness ED Provider: Tyra Laurent PA-C HPI narrative: Patient is a 28 year old assigned female at with a history of methadone use presenting to the emergency department today for her methadone dose. Patient states that she missed her methadone dose and needs it. Patient states that it is 105mg. Patient denies any dizziness, lightheadedness, abdominal pain, nausea, vomiting, fever, chills, blurry vision, double vision, loss of vision, chest pain, difficulty breathing, shortness of breath, back pain, night sweats, pain with urination, increased urinary frequency, increased urinary urgency, blood in her urine or stool, syncope or a near syncopal episode, recent trauma or falls, bowel incontinence, bladder incontinence, or any other complaints at this time. Relieving factors: none Exacerbating factors: none Associated symptoms: denies other symptoms Treatments prior to arrival: none Related Data Previous Rx's ?Medication ?Instructions ?Recorded methadone 10 mg/mL oral 30 mg (3 mL) PO DAILY #0 mL 11/16/23 concentrate (Methadose) Allergies Allergy/AdvReac Type Severity Reaction Status Date / Time No Known Allergies Allergy Verified 06/06/24 14:27 [No Known Allergies*] Review of Systems Constitutional: Constitutional: Reports no additional constitutional complaints, Denies chills, Denies fever(s) and Denies night sweats Eyes: Eyes: Reports no additional eye complaints, Denies blurry vision, Denies change in vision, Denies diplopia, Denies eye discharge, Denies loss of vision and Denies eye pain ENT: Denies dizziness Cardiovascular: Cardiovascular: Reports no additional cardiovascular complaints, Denies chest pain, Denies lightheadedness, Denies Loss of Consciousness and Denies dyspnea Respiratory: Respiratory: Reports no additional respiratory complaints and Denies dyspnea Gastrointestinal: Gastrointestinal: Reports no additional gastrointestinal complaints, Denies abdominal pain, Denies melena, Denies hematochezia, Denies change in bowel habits and Denies change in stool character Genitourinary: Genitourinary: Denies hematuria, Denies urinary frequency, Denies dysuria, Denies urinary incontinence, Denies urinary hesitancy and Denies urinary urgency Musculoskeletal: Musculoskeletal: Reports no additional musculoskeletal complaints, Denies numbness and Denies tingling Neurologic: Denies dizziness, Denies loss of vision, Denies numbness and Denies tingling Psychiatric: Psychiatric: Reports no additional psychiatric complaints Endocrine: Endocrine: Reports no additional endocrine complaints Hematologic/Lymphatic: Hematologic/Lymphatic: Reports no additional hematologic/lymphatic complaints Allergic/Immunologic: Allergic/Immunologic: Reports no additional allergic/immunologic complaints [facility] Past Medical History Attestation statement: The following information was validated with the patient. Source: old records reviewed and nursing notes reviewed Medical History Gastric out let obstruction Cystic duct leak Opioid use disorder IV drug abuse Surgical History History of ERCP History of cholecystectomy Social History Social History Household Members: Family Housing: House Do you presently have visiting nurse or other home services: No Alcohol intake: never Comment: counts correct Patient Tobacco Use Status: Never used Tobacco Second Hand Smoke Exposure: No Substance Use Type: Marijuana Advance Directives: Yes Advance Directives on File: Yes Advance Directives Date on File: 11/20/23 Do you have a plan to hurt others: No Plan service: No Physical Exam ED Vital Signs: Vital Signs - 24 hr 06/06/24 14:24 Temperature 98.7 F Pulse Rate 69 Respiratory Rate 18 Blood Pressure 111/69 Pulse Oximetry 97 Oxygen Delivery Method Room Air BMI result Body Mass Index 30.9 Const General: cooperative, no acute distress, alert and awake Nutritional Appearance: well nourished Orientation/consciousness: patient oriented x3 Limitations: no limitations [facility] Head: Yes normal to inspection and Yes atraumatic Ears: hearing grossly normal bilaterally and external ears normal General nose exam: Normal external nose present, no nasal discharge noted and no epistaxis Face and sinus: Yes normal facial exam, No abrasion and No laceration Mouth: Normal oral and palatal mucosa present, no drooling and no muffled voice Eyes General: appearance normal, both eyes and all related structures Periorbital: periorbital findings normal Eyelids: Yes eyelids normal Conjunctivae: conjunctivae normal Pupils: Equal, round and reactive pupils present EOM: EOMs intact bilaterally Neck Neck: Yes normal visual inspection, Yes full ROM and Yes no lymphadenopathy Chest Chest palpation & inspection: normal inspection of the chest Resp Effort & Inspection: normal respiratory effort and able to speak in complete sentences GI Inspection: Yes normal to inspection Neuro General: patient oriented x3 and moves all extremities Cranial nerves: Yes Equal, round and reactive pupils present Cognition (Neuro): normal cognition Extrem General: Yes normal to inspection, Yes full ROM and Yes capillary refill normal Psych Appearance: grossly normal Mental Status: mental status grossly normal Affect: normal affect Attitude: cooperative Thought process: Normal thought process present Thought content: Normal thought content present Insight: Good insight present (Psych) Medications Administered Discontinued Medications Generic Name Dose Route Start Last Admin Trade Name Pat PRN Reason Stop Dose Admin Methadone HCl 105 mg 06/06/24 14:31 06/06/24 15:12 Methadone Hcl 20 Mg/2 Ml Oral.Conc PO 06/06/24 14:32 105 mg ONCE ONE Administration Medical Decision Making Medical Decision Making MDM Narrative: Patient is a 28 year old assigned female at with a history of methadone use presenting to the emergency department today requesting her methadone dose. Patient's physical exam was unremarkable. I explained my physical exam findings to the patient. I answered all questions asked by the patient. Patient received her dose of methadone. I stressed the importance of the patient taking her medication as directed (either prescribed or as the over the counter packaging recommends). I stressed the importance of the patient following up with her primary care provider. I stressed the importance of the patient returning to the emergency department immediately if her symptoms were to worsen or if she were to develop any dizziness, shortness of breath, difficulty breathing, chest pain, blurry vision, loss of vision, nausea, vomiting, abdominal pain, fever, chills, back pain, or any other complaints. Patient verbalized agreement and understanding with this treatment plan and discharge. Differential Diagnosis Differential Diagnoses: The differential diagnosis associated with the presentation includes Methadone dose Admission/Observation Consideration of admission/observation: Escalation of care including admission/observation considered Patient would have been admitted to the hospital had her clinical presentation warranted hospital admission. Discharge Plan Discharge Clinical Impression: Methadone use Patient Disposition: Home, Self-Care Additional Instructions: Follow up with your primary care provider. Return to the emergency department immediately if your symptoms worsen or if you develop any dizziness, shortness of breath, difficulty breathing, chest pain, blurry vision, loss of vision, nausea, vomiting, abdominal pain, fever, chills, back pain, or any other complaints. Prescriptions: No Action methadone [Methadose] 10 mg/mL Concentrate 30 mg PO DAILY Qty: 0 0RF Patient Comments: Verified by Camille Jordan RN called [facility] after hours [phone] Rx Instructions: Partial Fill upon patient request. Referrals: Cherrie Douglas SIDE HEMMER [Primary Care Provider] - Print Language: Latvian
--- NOTE | 2024-06-06 14:54 | HE.PHANOTE ---
Methadone confirmation form received Patient takes 105mg from [facility] . Last dose 06/05/24
[2024-06-06] MEDS: methADONE HCl 20 MG/2 ML ORAL.CONC 105 MG PO (15:12)
[2024-06-06 15:59] VITALS: BP 00/00; PULSE 0; RESP 0; TEMP -17.7; TEMP 0; O2SAT 0
== END 2024-06-06 16:00 | disposition home or self-care (01) ==
PROVIDERS: Emergency Provider Emergency Medicine Emergency Medical Services; PCP Nurse Practitioner Family
DX: F11.20 Opioid dependence, uncomplicated (principal)
CPT/HCPCS: 99282; 99283

== ENCOUNTER 2024-06-27 17:51 | Outpatient (REF) | payer MEDICAID, SELFPAY ==
[2024-06-28 06:04] LABS: CT PCR NOT DETECTED (Not Detect.); NG PCR NOT DETECTED (Not Detect.)
== END 2024-06-27 17:52 | disposition home or self-care (01) ==
LOC: HO.HHCLNP 17:51
PROVIDERS: Visit Provider Nurse Practitioner Family
DX: R30.0 Dysuria (principal)
CPT/HCPCS: 87086; 87491; 87591

== ENCOUNTER 2024-07-18 18:27 | Emergency (ER) | payer MEDICAID, SELFPAY ==
--- NOTE | ~2024-07-18 | CT_ITS ---
EXAMINATION: CT ABDOMEN AND PELVIS WITHOUT CONTRAST CLINICAL INFORMATION: Right flank pain. History of stones COMPARISON: Abdominal MRI November 15, 2023 TECHNIQUE: Multidetector volumetric imaging was performed from the superior aspect of the liver through the pubic symphysis. Sagittal and coronal reformatted images were obtained on the technologist's workstation. This CT examination was performed using dose optimization techniques as appropriate, variously including the following: *Automated exposure control *Adjustment of mA and/or kV according to patient size (this includes techniques or standardized protocols for targeted exams where dose is matched to indication/reason for exam; i.e. extremities or head) *Use of iterative reconstruction technique DLP: 511 mGy-cm FINDINGS: LUNG BASES: The visualized lung bases are unremarkable. LIVER, GALLBLADDER, AND BILIARY TREE: The liver is normal in size, shape, and attenuation. No focal hepatic lesion or biliary ductal dilatation is present. The gallbladder is surgically absent. Internal biliary stent in place. PANCREAS: Unremarkable. SPLEEN: Unremarkable. ADRENAL GLANDS: Unremarkable. KIDNEYS AND URETERS: The kidneys are normal in size. Punctate stone in the right lower pole. No hydronephrosis. BLADDER: Unremarkable. GASTROINTESTINAL TRACT: Large stool burden. Otherwise the visualized large and small bowel are normal in caliber. ABDOMINAL WALL: No significant hernia is appreciated. LYMPH NODES: Normal. VASCULAR: Unremarkable. PELVIC VISCERA: Unremarkable. OSSEOUS STRUCTURES: Unremarkable. CT/CT abdomen pelvis wo IV con IMPRESSION: Punctate stone in the right lower pole. No hydronephrosis. Fleischner guidelines were followed. Electronically signed by: Rojas Medina MD 07/18/2024 08:58 PM EDT
--- NOTE | 2024-07-18 18:32 | ED_ITS ---
HPI - General Adult General Chief complaint: Abdominal Pain Stated complaint: vomiting, R side pain hx of kidney stones Time Seen by Provider: 07/18/24 20:36 Source: patient, RN notes reviewed and old records reviewed Mode of arrival: ambulatory Limitations: no limitations History of Present Illness ED Provider: Melyssa HERNANDEZ narrative: 28-year-old female past medical history significant for opiate use disorder presents for evaluation of right-sided abdominal pain that radiates to the back. The pain started 3 days ago. She reports associated nausea and vomiting. She also endorses urinary frequency and burning with urination. The patient reports a cholecystectomy about 8 months ago She denies any sick contacts. Denies any other abdominal surgeries other than the cholecystectomy. Denies any vaginal bleeding or discharge Her pain is a 04/09, constant Related Data Previous Rx's ?Medication ?Instructions ?Recorded methadone 10 mg/mL oral 30 mg (3 mL) PO DAILY #0 mL 11/16/23 concentrate (Methadose) cefuroxime axetil 250 mg tablet 250 mg PO Q12H #14 tabs 07/18/24 phenazopyridine 200 mg tablet 200 mg PO TID PRN pain 6 doses #6 07/18/24 (Pyridium) tabs Allergies Allergy/AdvReac Type Severity Reaction Status Date / Time No Known Allergies Allergy Verified 07/18/24 18:36 [No Known Allergies*] Review of Systems 2 Constitutional: Constitutional: Denies body ache(s), Denies chills, Denies fever(s) and Denies frequent falls Eyes: Eyes: Denies blurry vision ENT: Denies vertigo and Denies dizziness Cardiovascular: Cardiovascular: Denies chest pain and Denies dyspnea Respiratory: Respiratory: Denies cough and Denies dyspnea Gastrointestinal: Gastrointestinal: Reports abdominal pain, Denies diarrhea, Denies loose stools, Reports nausea and Reports vomiting Genitourinary: Genitourinary: Reports dysuria and Reports flank pain Musculoskeletal: Musculoskeletal: Reports back pain Integumentary/Breasts: Skin/Breast: Denies rash Neurologic: Denies vertigo, Denies dizziness and Denies frequent falls PMF Past Medical History Medical History Gastric out let obstruction Cystic duct leak Opioid use disorder IV drug abuse Surgical History History of ERCP History of cholecystectomy Social History Social History Household Members: Family Housing: House Do you presently have visiting nurse or other home services: No Alcohol intake: never Comment: counts correct Patient Tobacco Use Status: Never used Tobacco Smoked in Last 30 Days: No Second Hand Smoke Exposure: No Use of substances other than those prescribed or required for medical reasons: No Substance Use Type: Marijuana Advance Directives: Yes Advance Directives on File: Yes Advance Directives Date on File: 11/20/23 Do you have a plan to hurt others: No Plan Patient : No service: No Physical Exam ED Vital Signs: Vital Signs - 24 hr 07/18/24 18:33 07/18/24 20:23 Temperature 98.2 F 98.9 F Pulse Rate 78 65 Respiratory Rate 18 18 Blood Pressure 109/70 114/80 Pulse Oximetry 98 99 Oxygen Delivery Method Room Air Room Air BMI result Body Mass Index 31.3 Const General: healthy appearing, comfortable, no acute distress, alert and awake Nutritional Appearance: well nourished Orientation/consciousness: patient oriented x3 HENMT Head: Yes normocephalic and Yes atraumatic Eyes Eyelids: Yes eyelids normal Conjunctivae: conjunctivae normal Sclerae: sclerae normal Corneas: corneas normal Pupils: Equal, round and reactive pupils present EOM: EOMs intact bilaterally Neck Neck: Yes full ROM Resp Effort & Inspection: normal respiratory effort, able to speak in complete sentences and not labored Cardio Rate: regular rate Rhythm: regular rhythm GI Inspection: No distended Palpation (GI): Soft to palpation, not firm, Tenderness to palpation present (GI) in the RLQ and in the RUQ; not in the epigastrum, not in the LLQ, not in the LUQ, Edmonds's sign negative and with no rebound tenderness, no guarding and not rigid Skin General skin exam: elasticity normal Neuro General: patient oriented x3 Cranial nerves: Yes Equal, round and reactive pupils present and Yes Bilaterally intact EOM present Cognition (Neuro): normal cognition Extrem Other: Moving all extremities well without any obvious deformities Course Course Course Narrative: This is a rapid medical exam performed by Sana Ruiz NP: Additional HPI, ROS, PE not included below will be deferred to primary provider. Patient is a 28-year-old female with history of kidney stones, cholecystectomy presenting to the ED with complaint of right flank pain, nausea and vomiting x 3 days. States pain feels similar to prior kidney stones. Also endorsing urinary frequency/urgency. States she missed today's methadone dose due to symptoms, goes to [facility] clinic on [address] [facility] [address] [facility] [place], normal dose is 125mg. Plan: labs, UA Medications Administered Discontinued Medications Generic Name Dose Route Start Last Admin Trade Name Pat PRN Reason Stop Dose Admin Ondansetron HCl 4 mg 07/18/24 20:41 07/18/24 20:49 Ondansetron Odt 4 Mg Tab.Rapdis TRANSLINGU 07/18/24 20:42 4 mg ONCE ONE Administration Medical Decision Making Medical Decision Making [facility] Narrative: 28-year-old female presents for evaluation of right-sided abdominal pain that radiates through to her back. She reports associated nausea vomiting. She is already status post cholecystectomy 8 months ago. She has some symptoms with frequency and dysuria. Her urinalysis does appear to show a UTI. She has no leukocytosis, left shift or fever to suggest significant pyelonephritis. A CT scan was ordered to evaluate for obstructive uropathy. The patient's chemistries are reassuring, no evidence of MARIE. My review of her CT scan does show moderate constipation which may be the cause of her pain. Still waiting Radiology read. Differential Diagnosis Differential Diagnoses: The differential diagnosis associated with the presentation includes Abdominal pain Constipation Cholelithiasis Obstructive uropathy UTI Pyelonephritis Lab Data [facility] Lab Attestation statement: I reviewed the patient's lab results. No leukocytosis or left shift. The patient has a mild anemia consistent with her baseline normal platelet count. No significant electrolyte abnormalities. 07/18/24 18:46 07/18/24 18:46 Labs: Lab Results 07/18/24 Range/Units 18:46 WBC 10.0 (4.8-10.8) X10*3/uL RBC 3.99 L (4.20-5.50) X10*6/uL Hgb 10.7 L (12.0-16.0) g/dl Hct 33.2 L (37.0-47.0) % MCV 83.2 (80.0-98.0) fL MCH 26.8 L (27.0-33.0) pg MCHC 32.2 (31.0-35.0) g/dl RDW 14.6 (11.0-16.0) % Plt Count 317 (160-400) X10*3/uL MPV 9.9 (9.4-12.3) fL Immature Gran % (Auto) 0.4 (0.0-0.4) % Neut % (Auto) 70.2 (45-73) % Lymph % (Auto) 17.6 L (20-40) % Dickinson % (Auto) 7.6 (2-11) % Eos % (Auto) 3.9 (0-4) % Baso % (Auto) 0.3 (0-2) % Lymph # (Auto) 1.8 (1.2-4.9) X10*3/uL Dickinson # (Auto) 0.8 (0.1-1.2) X10*3/uL Eos # (Auto) 0.4 (0.0-0.4) X10*3/uL Baso # (Auto) 0.0 (0.0-0.2) X10*3/uL Abs Immat Gran (auto) 0.04 H (0.00-0.03) X10*3/uL Absolute Neuts (auto) 7.0 (2.0-8.3) x10*3/uL Absolute Nucleated RBC 0.000 (0.0-0.012) X10*3/uL Nucleated RBC % (auto) 0.0 (0.0-0.2) /100WBC Sodium 141 (135-145) mmol/L Potassium 3.9 (3.3-5.1) mmol/L Chloride 104 (96-108) mmol/L Carbon Dioxide 25 (22-29) mmol/L Anion Gap 16 (12-20) BUN 9 (9-16) mg/dL Creatinine 0.65 (0.5-1.4) mg/dL Estim Creat Clear Calc 135.2 Estimated GFR > 60 Random Glucose 68 (60-115) mg/dL Calcium 9.3 (8.4-10.2) mg/dL Total Bilirubin 0.4 (0.0-1.0) mg/dL AST 28 (5-31) U/L ALT 66 H (0-31) U/L Alkaline Phosphatase 193 H (39-117) U/L Total Protein 8.0 (6.5-8.0) g/dL Albumin 3.8 (3.5-5.0) g/dL Beta HCG, Quant < 2 mIU/mL Urine Color Yellow Urine Appearance Turbid Urine pH 6.5 (5.0-9.0) Ur Specific [place] 1.015 (1.005-1.025) Urine Protein 30 (1+) H (Neg-Trace) mg/dL Urine Glucose (UA) Negative (Negative) mg/dL Urine Ketones Negative (Negative) mg/dL Urine Blood Small (1+) H (Negative) Urine Nitrite Positive H (Negative) Ur Leukocyte Esterase Large (3+) H (Negative) Urine RBC 0-2 (0-2) /HPF Urine WBC 21-50 (0-5) /HPF Ur Squamous Epith Cells >20 (0-2) /HPF Urine Bacteria 4+ (None Seen) Hyaline Casts 0-2 (0-2) /LPF Independent Interpretation I performed an independent interpretation of an: CT Scan (Moderate stool burden) Radiology Impression Discussion of test interpretation with radiology: I have reviewed the radiologist's reading. Radiologist Impression: FINDINGS: LUNG BASES: The visualized lung bases are unremarkable. LIVER, GALLBLADDER, AND BILIARY TREE: The liver is normal in size, shape, and attenuation. No focal hepatic lesion or biliary ductal dilatation is present. The gallbladder is surgically absent. Internal biliary stent in place. PANCREAS: Unremarkable. SPLEEN: Unremarkable. ADRENAL GLANDS: Unremarkable. KIDNEYS AND URETERS: The kidneys are normal in size. Punctate stone in the right lower pole. No hydronephrosis. BLADDER: Unremarkable. GASTROINTESTINAL TRACT: Large stool burden. Otherwise the visualized large and small bowel are normal in caliber. ABDOMINAL WALL: No significant hernia is appreciated. LYMPH NODES: Normal. VASCULAR: Unremarkable. PELVIC VISCERA: Unremarkable. OSSEOUS STRUCTURES: Unremarkable. CT/CT abdomen pelvis wo IV con IMPRESSION: Punctate stone in the right lower pole. No hydronephrosis. Fleischner guidelines were followed. Electronically signed by: Rojas Medina MD 07/18/2024 08:58 PM EDT Discharge Plan Discharge Clinical Impression: Abdominal pain, Constipation Patient Disposition: Home, Self-Care Instructions: Constipation (ED), Urinary Tract Infection in Women (ED) Additional Instructions: Your CT scan showed constipation but no evidence of kidney stones. Your urinalysis shows a UTI. Take the antibiotics as prescribed. I recommend using MiraLax and [id number] laxatives for the constipation. Increase fluid intake and fiber intake in your diet Follow-up with your primary doctor, return for new or worsening symptoms Prescriptions: New cefuroxime axetil 250 mg tablet 250 mg PO Q12H Qty: 14 0RF phenazopyridine [Pyridium] 200 mg tablet 200 mg PO TID PRN (Reason: pain) Qty: 6 0RF No Action methadone [Methadose] 10 mg/mL Concentrate 30 mg PO DAILY Qty: 0 0RF Patient Comments: Verified by Camille Jordan RN called [facility] after hours [phone] Rx Instructions: Partial Fill upon patient request. Print Language: Peruvian
[2024-07-18 18:33] VITALS: BP 109/70; PULSE 78; RESP 18; TEMP 36.8; O2SAT 98; BMI 31.3
[2024-07-18 18:49] LABS: MANUAL DIFF FLAG NO
[2024-07-18 18:51] LABS: Appearance Urine Turbid; Color Urine Yellow; Glucose Urine UA Negative (Negative); Leukocyte Esterase Urine Large (3+) (Negative); Nitrite Urine Positive (Negative); PH 6.5 (5.0-9.0); Specific Gravity - Urine 1.015 (1.005-1.025); UMIC TRIGGER UACC YES; Urine Blood Small (1+) (Negative); Urine Ketones Negative (Negative); Urine Protein 30 (1+) mg/dL (Neg-Trace)
[2024-07-18 19:04] LABS: Basophils Percent Auto 0.3 % (0-2); Eosinophils Absolute Auto 0.4 X10*3/uL (0.0-0.4); Eosinophils Percent Auto 3.9 % (0-4); Hematocrit 33.2 % (37.0-47.0); Hemoglobin 10.7 g/dl (12.0-16.0); Imm Gran Abs Auto 0.04 X10*3/uL (0.00-0.03); Imm Gran Pct Auto 0.4 % (0.0-0.4); Lymphocytes Absolute Auto 1.8 X10*3/uL (1.2-4.9); Lymphocytes Percent Auto 17.6 % (20-40); Mean Corpuscular HGB Conc 32.2 g/dl (31.0-35.0); Mean Corpuscular Hemoglobin 26.8 pg (27.0-33.0); Mean Corpuscular Volume 83.2 fL (80.0-98.0); Mean Platelet Volume 9.9 fL (9.4-12.3); Monocytes Absolute Auto 0.8 X10*3/uL (0.1-1.2); Monocytes Percent Auto 7.6 % (2-11); Neutrophils Percent Auto 70.2 % (45-73); Platelet Count 317 X10*3/uL (160-400); Red Blood Count 3.99 X10*6/uL (4.20-5.50); Red Cell Distribution Width 14.6 % (11.0-16.0)
[2024-07-18 19:06] LABS: Bacteria Urine 4+ (None Seen); Hyaline Casts Urine 0-2 /LPF (0-2); RBC Urine 0-2 /HPF (0-2); Squamous Epithelial Cell Urine >20 /HPF (0-2); UACC Culture Trigger YES; WBC Urine 21-50 /HPF (0-5)
[2024-07-18 19:09] LABS: Alanine Aminotransferase 66 U/L (0-31); Albumin Level 3.8 g/dL (3.5-5.0); Alkaline Phosphatase 193 U/L (39-117); Anion Gap 16 (12-20); Aspartate Amino Transferase 28 U/L (5-31); Bilirubin Total 0.4 mg/dL (0.0-1.0); Blood Urea Nitrogen 9 mg/dL (9-16); Calcium 9.3 mg/dL (8.4-10.2); Carbon Dioxide 25 mmol/L (22-29); Chloride 104 mmol/L (96-108); Creatinine Clr Calc Pharmacy 135.2; Estimated Glomerular Filt Rate > 60; Glucose Random 68 mg/dL (60-115); Potassium 3.9 mmol/L (3.3-5.1); Sodium 141 mmol/L (135-145)
[2024-07-18 19:10] LABS: HCG Quantitative < 2 mIU/mL
--- NOTE | 2024-07-18 20:17 | PC.NURSE ---
pt from lobby, assume care of pt at this time
[2024-07-18 20:23] VITALS: BP 114/80; PULSE 65; RESP 18; TEMP 37.2; O2SAT 99
[2024-07-18] MEDS: Ondansetron ODT 4 MG TAB.RAPDIS TRANSLINGU (20:49)
[2024-07-18] MEDS: cefuroxime axetiL 250 MG TABLET PO (23:27)
[2024-07-18 23:31] VITALS: BP 108/78; PULSE 68; RESP 16; TEMP 37.2; O2SAT 99
== END 2024-07-18 23:32 | disposition home or self-care (01) ==
PROVIDERS: Registered Nurse Emergency; Emergency Provider Emergency Medicine; PCP Nurse Practitioner Family
DX: R10.9 Unspecified abdominal pain (principal); K59.00 Constipation, unspecified; R11.2 Nausea with vomiting, unspecified; R35.0 Frequency of micturition; Z87.442 Personal history of urinary calculi
CPT/HCPCS: 36415; 74176; 80053; 81001; 81003; 84702; 85025; 87086; 87088; 87186; 99284

== ENCOUNTER 2024-08-01 13:16 | Emergency (ER) | payer MEDICAID, SELFPAY ==
[2024-08-01 13:28] VITALS: BP 114/75; PULSE 67; RESP 16; TEMP 36; O2SAT 99; BMI 29.2
--- NOTE | 2024-08-01 13:28 | ED.GENADULT ---
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 Opioid use disorder IV drug abuse Surgical History History of ERCP History of cholecystectomy Social History Social History Household Members: Family Housing: House Do you presently have visiting nurse or other home services: No Alcohol intake: never Comment: counts correct Patient Tobacco Use Status: Never used Tobacco Second Hand Smoke Exposure: No Substance Use Type: Marijuana Advance Directives: Yes Advance Directives on File: Yes Advance Directives Date on File: 11/20/23 Do you have a plan to hurt others: No Plan service: No Physical Exam ED Vital Signs: Vital Signs - 24 hr 08/01/24 13:28 Temperature 96.8 F Pulse Rate 67 Respiratory Rate 16 Blood Pressure 114/75 Pulse Oximetry 99 Oxygen Delivery Method Room Air BMI result Body Mass Index 29.2 Course Course Course Narrative: This is a Rapid Medical Examination (RME) performed by Oren Murguia PA-C in triage. Full HPI, ROS, assessment and treatment plan per primary provider in the Main ED. 28 yo female here requesting methadone dose. states she was last dosed 2 days ago. gets dosed at [facility]. states she missed the last two days due to work. was unable to make it to the clinic prior to it closing. she believes her dose is either 125 or 135. no physical complaints. no withdrawal symptoms. Plan: methadone dose Reevaluation(s) Reevaluation #1: Patient left the emergency department before myself or any of the other clinicians could review or explain physical exam findings, test results, need or lack there of for additional testing, treatment options, or a treatment plan. Discharge Plan Discharge Clinical Impression: Encounter for medication refill Patient Disposition: Left W/O Completing Treatment Prescriptions: No Action cefuroxime axetil 250 mg tablet 250 mg PO Q12H Qty: 14 0RF phenazopyridine [Pyridium] 200 mg tablet 200 mg PO TID PRN (Reason: pain) Qty: 6 0RF methadone [Methadose] 10 mg/mL Concentrate 30 mg PO DAILY Qty: 0 0RF Patient Comments: Verified by Camille Jordan RN called [facility] after hours [phone] Rx Instructions: Partial Fill upon patient request. Discharge Date/Time: 08/01/24 15:01
== END 2024-08-01 15:01 | disposition left against medical advice (07) ==
PROVIDERS: Emergency Provider Emergency Medicine; PCP Nurse Practitioner Family
DX: R79.89 Other specified abnormal findings of blood chemistry (principal); F11.90 Opioid use, unspecified, uncomplicated; F12.90 Cannabis use, unspecified, uncomplicated; Z76.0 Encounter for issue of repeat prescription; Z79.899 Other long term (current) drug therapy
CPT/HCPCS: 99281

== ENCOUNTER 2024-09-08 18:37 | Emergency (ER) | payer MEDICAID, SELFPAY ==
--- NOTE | 2024-09-08 19:18 | PC.NURSE ---
Called facility to confirm methane dose and if they were open, , pt refused to complete triage or be seen and left, STEPAN elizabeth aware.
--- NOTE | 2024-09-08 19:19 | ED.GENADULT ---
HPI - General Adult General Stated complaint: missed methadone dose History of Present Illness HPI narrative: patient left before completion of treatment by ED provider. 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 Opioid use disorder IV drug abuse Surgical History History of ERCP History of cholecystectomy Social History Social History Household Members: Family Housing: House Do you presently have visiting nurse or other home services: No Alcohol intake: never Comment: counts correct Patient Tobacco Use Status: Never used Tobacco Second Hand Smoke Exposure: No Substance Use Type: Marijuana Advance Directives: Yes Advance Directives on File: Yes Advance Directives Date on File: 11/20/23 service: No Course Course Course Narrative: RME: 28 year female presents to ED stating she missed her methadone dose due to having a flat tire. Methadone clinic was called and nobody picked up. Patient informed she will have to wait for provider in the ED to call in-house pharmacy to see if they would approve methadone dose. Patient left ED triage without vital signs being done. Discharge Plan Discharge Clinical Impression: Opioid use disorder Patient Disposition: Left W/O Completing Treatment Prescriptions: No Action cefuroxime axetil 250 mg tablet 250 mg PO Q12H Qty: 14 0RF phenazopyridine [Pyridium] 200 mg tablet 200 mg PO TID PRN (Reason: pain) Qty: 6 0RF methadone [Methadose] 10 mg/mL Concentrate 30 mg PO DAILY Qty: 0 0RF Patient Comments: Verified by Camille Jordan RN called [facility] after hours [phone] Rx Instructions: Partial Fill upon patient request. Discharge Date/Time: 09/08/24 20:41
== END 2024-09-08 20:41 | disposition left against medical advice (07) ==
PROVIDERS: Emergency Provider Emergency Medicine
DX: F11.10 Opioid abuse, uncomplicated (principal)